=== PATIENT | female | born 1930 | race Caucasian/White ===

== ENCOUNTER 2016-07-31 09:53 | Outpatient (CLI) | payer MEDICARE ==
[~2016-07-31] VITALS: Ht 152.4 cm; Wt 47.7 kg
[~2016-07-31 09:53] MED LIST: AMLO5TAB2 PO; BIOT1CAP3 PO; CALC-22 PO; CARB1TAB PO; METO-277 PO; MIRT15TA PO; MULT-57 PO; OMEP-29 PO; POLY12PO2 PO; SERT25TA5 PO
[2016-07-31] MEDS ORDERED: ZOLEDRONIC ACID 5MG 100 ML IV ONE (10:15)
[2016-07-31 10:30] VITALS: BP 149/72; PULSE 83; RESP 16; TEMP 97.4; O2SAT 96
[2016-07-31 10:33] VITALS: Ht 152.4 cm; Wt 47.7 kg
[2016-07-31] MEDS ORDERED: NS 500 ML IV PRN (11:15)
== END 2016-07-31 11:21 | disposition home or self-care (01) ==
LOC: INF.THER 09:53
PROVIDERS: ATTEND Family Medicine
DX: M85.80 Other specified disorders of bone density and structure, unspecified site (principal); M81.0 Age-related osteoporosis without current pathological fracture
CPT/HCPCS: 96365; J3489

== ENCOUNTER → 2016-08-08 | Outpatient (CLI) | payer MEDICARE ==
[2016-08-08 17:23] LABS: BASOPHILS % (AUTO) 0.4 % (0-2); EOSINOPHILS # (AUTO) 0.3 T/MM3 (0-0.5); HCT - HEMATOCRIT 38.5 % (36-46); HGB - HEMOGLOBIN 11.9 GM/DL (12-16); IMMATURE GRANULOCYTE # (AUTO) 0.01 T/MM3 (0.00-0.03); IMMATURE GRANULOCYTE % (AUTO) 0.1 % (0.0-0.5); LYMPHOCYTES # (AUTO) 1.1 T/MM3 (1-4.8); LYMPHOCYTES % (AUTO) 16.3 % (23-45); MEAN CORPUSCULAR HGB 30.4 UUG (26-34); MEAN CORPUSCULAR HGB CONC(MCHC 30.9 GM/DL (31-37); MEAN CORPUSCULAR VOLUME 98.2 UM3 (80-100); MEAN PLATELET VOLUME 8.9 UM3 (9.4-12.4); MONOCYTES # (AUTO) 0.5 T/MM3 (0-0.8); MONOCYTES % (AUTO) 7.9 % (0-9.0); NEUTROPHILS #(AUTO)-ABSOLUTE 4.8 T/MM3 (1.8-7.7); NEUTROPHILS % (AUTO) 71.3 % (33-66); RED BLOOD COUNT 3.92 M/MM3 (4.00-5.20); WBC - WHITE BLOOD COUNT 6.7 T/MM3 (4.5-11.0)
[2016-08-08 17:33] LABS: ALBUMIN 4.6 G/DL (3.5-5.0); ALBUMIN/GLOBULIN RATIO 1.3 RATIO (1.1-2.2); ALKALINE PHOSPHATASE 134 U/L (38-126); ALT (SGPT) 19 U/L (9-52); ANION GAP 15 MEQ/L (5-15); AST (SGOT) 34 U/L (14-36); BUN/CREATININE RATIO 20 RATIO (6-26); CALCIUM 9.3 MG/DL (8.4-10.2); CHLORIDE 107 MEQ/L (98-107); CO2 - CARBON DIOXIDE 24 MEQ/L (22-30); CREATININE 1.8 MG/DL (0.7-1.2); GLOMERULAR FILTRATION RATE 27; GLUCOSE 106 MG/DL (65-110); POTASSIUM 5.3 MEQ/L (3.6-5); SODIUM 146 MEQ/L (134-144); TOTAL PROTEIN 8.2 G/DL (6.3-8.2)
== END ==
LOC: LAB 16:59
PROVIDERS: ATTEND Family Medicine
DX: R19.7 Diarrhea, unspecified (principal)
CPT/HCPCS: 36415; 80053; 82272; 85025; 87507

== ENCOUNTER 2016-08-09 11:58 | Outpatient (CLI) | payer MEDICARE ==
[~2016-08-09] VITALS: Ht 152.4 cm; Wt 47.7 kg
[2016-08-09] MEDS: NORMAL SALINE 500 ML IV ONE (12:32)
[2016-08-09 12:37] VITALS: Ht 152.4 cm; Wt 47.7 kg
[2016-08-09 13:19] VITALS: BP 141/72; PULSE 74; RESP 16; TEMP 96.8; O2SAT 97
[2016-08-09 15:30] LABS: ANION GAP 14 MEQ/L (5-15); BUN/CREATININE RATIO 21 RATIO (6-26); CALCIUM 8.7 MG/DL (8.4-10.2); CHLORIDE 109 MEQ/L (98-107); CO2 - CARBON DIOXIDE 21 MEQ/L (22-30); CREATININE 1.5 MG/DL (0.7-1.2); GLOMERULAR FILTRATION RATE 33; GLUCOSE 122 MG/DL (65-110); POTASSIUM 4.7 MEQ/L (3.6-5); SODIUM 144 MEQ/L (134-144)
== END 2016-08-09 15:55 | disposition home or self-care (01) ==
LOC: INF.THER 11:58
PROVIDERS: ATTEND Family Medicine
DX: E86.0 Dehydration (principal)
CPT/HCPCS: 36415; 80048; 96360; 96361

== ENCOUNTER → 2016-08-25 | Outpatient (CLI) | payer MEDICARE ==
--- NOTE | 2016-08-25 09:38 | DI ---
Indication: ITS.REASON: R10.32 LLQ ABD PAIN, recent fall with left lower abdominal pain PROCEDURE: CT ABD/PELVIS W/O CONTRAST: Encounter: Initial Comparison: None Technique: Axial CT images were performed through the abdomen and pelvis without intravenous contrast. Coronal and sagittal two-dimensional reformats. Automated Exposure Control and Iterative Reconstruction dose reducing techniques were utilized. Findings: The lung bases are clear. The unenhanced contours of the liver are unremarkable. Gallbladder is surgically absent. The spleen, pancreas and adrenal glands are within normal limits. Kidneys appear normal. Scattered atherosclerotic plaque in the abdominal aorta and its major branches. No abdominal or pelvic lymphadenopathy. Bladder is normal. Uterus is surgically absent. No free fluid or evidence of a bowel obstruction. Sigmoid diverticulosis without evidence of acute diverticulitis. No evidence of free fluid, free air or hemorrhage. There is subcutaneous edema in the soft tissues of the left thigh and hip region. Bone windows show previously treated T12 compression fracture. No acute fracture identified. Degenerative change with facet disease in the mid to lower lumbar spine. Impression: No acute disease process seen in the abdomen or pelvis. Soft tissue edema in the left thigh and hip region probably representing contusion. .
--- NOTE | 2016-08-25 13:01 | DI ---
Indication: ITS.REASON: M79.632 PAIN IN LEFT FOREARM recent fall with left elbow pain PROCEDURE: ELBOW LEFT 3 VIEW: Encounter: Initial Comparison: None Findings: There is no acute fracture, dislocation or malalignment identified. Impression: No acute osseous abnormality. .
--- NOTE | 2016-08-25 13:01 | DI ---
Indication: ITS.REASON: M79.632 PAIN IN LEFT FOREARM fall with left forearm pain PROCEDURE: RADIUS/ULNA LEFT 2 VIEW: Encounter: Initial Comparison: None Findings: There is no acute fracture, dislocation or malalignment identified. Impression: No acute osseous abnormality. .
== END ==
LOC: IMA 07:51
PROVIDERS: ATTEND Family Medicine
DX: M79.632 Pain in left forearm (principal); R10.32 Left lower quadrant pain; W19.XXXA Unspecified fall, initial encounter; Y93.9 Activity, unspecified; Y92.9 Unspecified place or not applicable; Y99.9 Unspecified external cause status

== ENCOUNTER 2017-03-13 11:51 | Inpatient (IN) ==
[2017-03-13] MEDS ORDERED: FUROSEMIDE 20 MG/2 ML INJECTION IVP ONE (12:13)
--- NOTE | 2017-03-13 12:17 | Emergency Department Report ---
SOB HPI - General Chief Complaint: Shortness of Breath/Dyspnea <Inga River Margarito 03/13/17 12 :19> Stated Complaint: dyspnea <Inga River Margarito 03/13/17 12:19> Time Seen by Provider: 03/13/17 11:54 <Inga River Margarito 03/13/17 12:19> Source: patient <Inga River 03/13/17 12:19> Mode of arrival: wheelchair <Inga River Margarito 03/13/17 12:19> Limitations: no limitations <Inga River 03/13/17 12:19> - History of Present Illness Pt presents with a C/O SOA for the last several days. She does have a history of CHF. Reports dry cough and GERD, denies chest pain, N/V/D, or fever <FelishahiroInga Matias Margarito 03/13/17 12:19> MD Complaint: shortness of breath <AletaInga Matias Margarito 03/13/17 12:19> Onset (ago): day(s) <Inga River Margarito 03/13/17 12:19> Severity: mild <aHyleemarielInag Matias Margarito 03/13/17 12:19> Consistency/Duration: constant <HayleemarielInga Matias Margarito 03/13/17 12:19> Relieving factors: upright position <HayleeamrielInga Matias Margarito 03/13/17 12:19> Exacerbating factors: lying flat, exertion <AletaIngagillian Pimentel 03/13/17 12: 19> Known history of: congestive heart failure <HayleemarielInga Matias Margarito 03/13/17 12: 19> Associated symptoms: cough <AletaInga Matias Margarito 03/13/17 12:19> Treatment prior to arrival: none <FelishahiroIngagillian Pimentel 03/13/17 12:19> - Related Data Home Medications Medication Instructions Recorded Confirmed Mirtazapine [Remeron] 15 mg PO HS #0 04/05/11 03/13/17 Omeprazole 20 mg PO DAILY #0 12/23/12 03/13/17 Sertraline HCl 25 mg PO HS #30 08/17/15 03/13/17 Acetaminophen [Acetaminophen ER] 650 mg PO Q6H PRN 03/13/17 03/13/17 Aspirin Chewable [ASA] 81 mg PO Q48H 03/13/17 03/13/17 Biotin 300 mcg PO Q48H 03/13/17 03/13/17 Carbidopa/Levodopa 1 tab PO TID 03/13/17 03/13/17 [Carbidopa-Levodopa 25-250 Tab] Cholecalciferol [Vit. D-3] 1,000 unit PO DAILY 03/13/17 03/13/17 Docusate Sodium [Colace] 100 mg PO BID 03/13/17 03/13/17 Melatonin 5 mg PO HS PRN 03/13/17 03/13/17 Metoprolol Succinate 12.5 mg PO DAILY 03/13/17 03/13/17 Multivitamin [One Daily 1 each PO DAILY 03/13/17 03/13/17 Multivitamin] Oxybutynin Chloride 5 mg PO HS PRN 03/13/17 03/13/17 Propylene Glycol [Lubricant Eye 1 drop OP DAILY 03/13/17 03/13/17 Drops] <Inga River 03/13/17 12:19> Allergies Allergy/AdvReac Type Severity Reaction Status Date / Time clarithromycin AdvReac Mild STOMACH Verified 08/09/16 13:19 PAIN <Inga River 03/13/17 12:19> Review of Systems All systems: reviewed and negative except as stated <Inga River 12:19> Constitutional: Denies: fever, weakness <Inga River 03/13/17 12:19> Respiratory: Reports: cough, dyspnea. Denies: wheezes <Inga River 03/13/17 12:19> Gastrointestinal: Denies: nausea, vomiting, diarrhea <Inga River 12:19> Musculoskeletal: Reports: arthralgia <Inga River 03/13/17 12:19> [facility] Patient Stated Medical History Parkinson's Disease Yes Hypertension Yes Valvular Heart Disease Yes: aortic valve stenosis Other Cardiology Yes: murmur Gastroesophageal Reflux Yes Disease Other Yes: chronic kidney disease stage 3 Other Musculoskeletal Yes: arthritis Other Infectious Yes: measels as a child Depression Yes <Inga River 03/13/17 14:19> Physical Exam - Limitations Limitations: no limitations <Inga River 03/13/17 12:19> - General General appearance: alert, in no apparent distress <Inga River 03/13 12:19> - Normal Exams: Head:: Normocephalic without trauma <AletaInga Pimentel 03/13/17 12:19> Eyes:: Pupils are PERRLA w/ EOMI <Inga River 03/13/17 12:19> Neck:: Full range of motion, without adenopathy <Inga River 12:19> Cardiovascular:: Regular rate and rhythm, without murmur or gallop, Pulses 2+ all extremities <Inga River 03/13/17 12:19> Abdomen:: Bowel sounds positive, soft, non-tender, non-distended <Aleta Inga Pimentel 03/13/17 12:19> Musculoskeletal:: No tenderness, or deformity noted, good range of motion, all extremities <Inga River 03/13/17 12:19> Integumentary:: No rashes <Inga River 03/13/17 12:19> Neurological:: Patient is alert, and oriented, cranial nerves, motor/sensory/ cerebellar, exams w/o gross deficits, to observation <Inga River 12:19> Psychiatric:: Patient exhibits, appropriate attention, emotion and affect < Inga River 03/13/17 12:19> - Respiratory Respiratory exam: Present: crackles (telly bases) <Inga River 12:19> - Expanded Respiratory Exam Location: Left: decreased breath sounds, Right: decreased breath sounds, Upper: decreased breath sounds, Lower: decreased breath sounds <Inga River 03/13/17 12:19> Course Vital Signs Temperature 97.9 F 03/13/17 11:54 Pulse Rate 77 03/13/17 11:54 Respiratory Rate 24 03/13/17 11:54 Blood Pressure 180/79 H 03/13/17 11:54 Pulse Oximetry 98 03/13/17 11:54 Temperature 97.9 F 03/13/17 11:54 Pulse Rate 77 03/13/17 12:44 Respiratory Rate 24 03/13/17 11:54 Blood Pressure 175/83 H 03/13/17 12:44 Pulse Oximetry 91 03/13/17 12:44 <Inga River 03/13/17 14:19> Shortness of Breath/Dyspnea - [facility] Narrative Medical decision making narrative: Pt diuresing after Lasix given. Concerns for pneumonia after review of CXR, pt has a PORT score of 125. Results discussed with Dr Fonseca who will admit pt for further care. <Inga River 03/13/17 14:19> - Differential Diagnosis Likely: acute exacerbation of chronic obstructive airways disease, congestive heart failure, community acquired pneumonia, pulmonary embolism <Inga River 03/13/17 12:19> - Lab Data Attestation: I reviewed the patient's lab results. <Inga River 03/13 14:19> Result diagrams: 03/13/17 12:42 03/13/17 12:42 <Inga River 03/13/17 12:19> Lab Results 03/13/17 03/13/17 03/13/17 Range/Units 12:42 12:42 12:42 WBC 7.9 (4.5-11.0) T/MM3 RBC 3.53 L (4.00-5.20) M/MM3 Hgb 10.7 L (12-16) GM/DL Hct 34.4 L (36-46) % MCV 97.5 (80-100) UM3 MCH 30.3 (26-34) UUG MCHC 31.1 (31-37) GM/DL RDW Std Deviation 46.1 (36.9-50.2) FL Plt Count 230 (130-400) T/MM3 MPV 9.0 L (9.4-12.4) UM3 Immature Gran % (Auto) 0.1 (0.0-0.5) % Neut % (Auto) 63.0 (33-66) % Lymph % (Auto) 23.5 (23-45) % [place] % (Auto) 8.8 (0-9.0) % Eos % (Auto) 4.2 H (0-4) % Baso % (Auto) 0.4 (0-2) % Neut # (Auto) 5.0 (1.8-7.7) T/MM3 Lymph # (Auto) 1.9 (1-4.8) T/MM3 [place] # (Auto) 0.7 (0-0.8) T/MM3 Eos # (Auto) 0.3 (0-0.5) T/MM3 Baso # (Auto) 0.0 (0-0.2) T/MM3 Abs Immat Gran (auto) 0.01 (0.00-0.03) T/MM3 Turbidity < 20 (0-20) Sodium 141 (134-144) MEQ/L Potassium 4.7 (3.6-5) MEQ/L Chloride 107 (98-107) MEQ/L Carbon Dioxide 23 (22-30) MEQ/L Anion Gap 11 (5-15) MEQ/L BUN 33.0 H (7-17) MG/DL Creatinine 1.3 H (0.7-1.2) MG/DL GFR Calculation 39 BUN/Creatinine Ratio 25 (6-26) RATIO Glucose 88 (65-110) MG/DL Calculated Osmolality 277 (261-280) MOSM/KG Calcium 9.1 (8.4-10.2) MG/DL Total Bilirubin 0.50 (0.20-1.30) MG/DL Icterus Index < 2 (0-7) AST 29 (14-36) U/L ALT 23 (9-52) U/L Alkaline Phosphatase 135 H (38-126) U/L B-Natriuretic Peptide 7700 H (0-175) pg/mL Total Protein 7.6 (6.3-8.2) G/DL Albumin 4.2 (3.5-5.0) G/DL Globulin 3.4 (2.4-3.6) G/DL Albumin/Globulin Ratio 1.2 (1.1-2.2) RATIO Specimen Hemolysis 20 (0-25) <Inga River - 03/13/17 14:19> - Radiology Data Attestation: I reviewed the patient's radiology results. (per Dr [place]) < Inga River 03/13/17 14:19> - EKG Data EKG #1 EKG attestation: Yes: I reviewed and interpreted this EKG. < 14:11> EKG shows normal: sinus rhythm, intervals, ST-T waves <03/13/17 14:11> Rate: normal <03/13/17 14:11> [place]/QRS: left axis deviation, LBBB <03/13/17 14:11> Disposition Clinical Impression: Congestive heart failure Qualifiers: Congestive heart failure type: combined Congestive heart failure chronicity: acute on chronic Qualified Code(s): I50.43 - Acute on chronic combined systolic (congestive) and diastolic (congestive) heart failure Pneumonia Qualifiers: Pneumonia type: due to other aerobic Gram-negative bacteria Laterality: bilateral Lung location: lower lobe of lung Qualified Code(s): J15.6 - Pneumonia due to other Gram-negative bacteria <Inga River 03/13/17 14:19> [place]: [place] [facility] [place] <Inga River 03/13/17 14:19> Condition: Improved <Inga River 03/13/17 14:19> Instructions: <Inga River 03/13/17 12:19> Prescriptions: No Action Sertraline HCl 25 mg PO HS #30 Melatonin 5 mg PO HS PRN PRN Reason: Sleep Oxybutynin Chloride 5 mg PO HS PRN PRN Reason: Prn Orders Biotin 300 mcg PO Q48H Metoprolol Succinate 12.5 mg PO DAILY Docusate Sodium [Colace] 100 mg PO BID Cholecalciferol [Vit. D-3] 1,000 unit PO DAILY Carbidopa/Levodopa [Carbidopa-Levodopa 25-250 Tab] 1 tab PO TID Aspirin Chewable [ASA] 81 mg PO Q48H Mirtazapine [Remeron] 15 mg PO HS #0 Omeprazole 20 mg PO DAILY #0 Acetaminophen [Acetaminophen ER] 650 mg PO Q6H PRN PRN Reason: Pain Propylene Glycol [Lubricant Eye Drops] 1 drop OP DAILY Multivitamin [One Daily Multivitamin] 1 each PO DAILY <Inga River 03/13/17 12:19> Referrals: Ekaterina Rust MD [Primary Care Provider] - <Inga River 03/13/17 12:19> Forms: <Inga River 03/13/17 12:19> Time of Disposition: 14:19 <Inga River 03/13/17 14:19> - Seen By: midlevel <Inga River 03/13/17 14:19>
[2017-03-13] MEDS: SALINE FLUSH 10ml SYRINGE IVF PRN ×3 (12:42→21:36)
--- NOTE | 2017-03-13 13:25 | XRay Report ---
INDICATION: SOA hx CHF PROCEDURE: CHEST 2-VIEWS UPRIGHT (PA & LAT) Encounter: Initial COMPARISON: February 24, 2016 FINDINGS: Small bilateral pleural effusions with lower lobe airspace disease. Prominence of the pulmonary vascularity and interstitial markings. No pneumothorax. Heart size and mediastinal contours are stable. Prior cholecystectomy and vertebroplasty procedures. Impression: Mild congestive failure. Mild pneumonia or aspiration cannot be entirely excluded in the lung bases. .
--- OUTSIDE RECORDS SUMMARY | 2017-03-13 13:36 | External Medical Summary | Referral Summary ---
:1930 Author Organization [facility] [place] [id number] Care Team Providers Name Role Phone GauriGaby Primary Care Physician Encounter VC Date(s): 01/18/15 - 01/18/15 [facility] [place] [phone] Discharge Diagnosis: DDD (degenerative disc disease), lumbar Discharge Diagnosis: Benign hypertension Discharge Diagnosis: Thoracic compression fracture Discharge Disposition: 01-Home or Self Care Attending Physician: Hayden Siddiqi MD Admitting Physician: Hayden Siddiqi MD Vital Signs Most recent to oldest [Reference Range]: 1 Temperature Tympanic [36.6-38.1 degC] 35.8 degC *LOW* (01/18/15 10:41 AM) Peripheral Pulse Rate [60-100 bpm] 84 bpm (01/18/15 10:41 AM) Blood Pressure [90-140/60-90 mmHg] 110/64 mmHg (01/18/15 10:41 AM) Problem List Condition Effective Dates Status Health Status Informant Benign hypertension(Confirmed) Active Chronic renal failure(Confirmed) Active B12 deficiency(Confirmed) Active Thoracic compression Active fracture(Confirmed) DDD (degenerative disc disease), Active lumbar(Confirmed) Depression(Confirmed) Active Gastroenteritis - hosp [place](Confirmed) 04/2011 Active GERD (gastroesophageal reflux Active disease)(Confirmed) Urinary frequency(Confirmed) Active Lumbago(Confirmed) Active Lumbar spondylosis(Confirmed) Active OA (osteoarthritis)(Confirmed) Active Parkinson's disease - Dr. Andrew Mata(Confirmed) Vitamin D deficiency(Confirmed) Active Allergies, Adverse Reactions, Alerts Substance Reaction Severity Status Biaxin Active clarithromycin rash Active Medications amLODIPine 5 mg oral tablet 5 mg 1 tabs, Oral, Daily, # 30 tabs, 6 Refill(s), Pharmacy: [facility], 1 tabs Oral Daily,x30 days Start Date: 02/15/15 Stop Date: 09/13/15 Status: OrderedCaltrate 600 + D oral tablet 1 tabs, Oral, Daily Start Date: 07/24/14 Status: Orderedcarbidopa-levodopa 50 mg-200 mg oral tablet, extended release 1 tabs, Oral, TID Start Date: 07/24/14 Status: Orderedcephalexin See Instructions, 250 mg Oral- Take 4 tabs prior to dental procedure due to knee repalacement, 0 Refill(s) Start Date: 08/28/14 Status: OrderedCommode (DME) DME Item Bed side commode DX: Compression fracture T11 fall 2 weeks ago 786.1 / 042.43 Fax to [facility] [phone], See Instructions, # 1 Each, 0 Refill(s), Supply Start Date: 12/15/14 Status: Ordereddocusate sodium 50 mg oral capsule 2 caps, Oral, Bedtime (once a day), PRN Start Date: 07/24/14 Status: Orderedmetoprolol succinate 25 mg oral tablet, extended release 25 mg 1 tabs, Oral, Daily, # 30 tabs, 5 Refill(s), Pharmacy: [facility] Start Date: 11/20/14 Status: OrderedMiacalcin Nasal 200 intl units/inh nasal spray 1 sprays, Nasal, Daily, alternate nostrils, # 1 Each, 3 Refill(s), Pharmacy: [facility],1 sprays Nasal Daily,x30 days,Instr:alternate nostrils Start Date: 12/14/14 Stop Date: 04/13/15 Status: Orderedmirtazapine 15 mg oral tablet 1 tabs, Oral, Bedtime (once a day) Start Date: 07/24/14 Status: Orderedomeprazole 20 mg oral delayed release capsule 1 caps, Oral, Daily, before a meal Start Date: 07/24/14 Status: Orderedsertraline 25 mg oral tablet 25 mg 1 tabs, Oral, Daily, # 30 tabs, 6 Refill(s), Pharmacy: [facility], 1 tabs Oral Daily,x30 days Start Date: 10/28/14 Stop Date: 05/26/15 Status: OrderedVitamin D3 2000 intl units oral tablet 1 tabs, Oral, Daily Start Date: 07/24/14 Status: Ordered Results No data available for this section Immunizations Vaccine Date Refusal Reason influenza virus vaccine, inactivated 02/15/15 Procedures Procedure Date Related Diagnosis Body Site Vertebroplasty1 01/05/15 Admission to hospital 04/2011 Knee replacement - L x 3; Dr. Suárez 1999 Cholecystotomy Hysterectomy Surgery - gall bladder2 1auto-populated from documented surgical [id number] bladder -- Dr. Strickland in [facility] -- Dr. Godfrey left knee-- Dr. Soliz Social History Social History Type Response Smoking Status Never smoker Assessment and Plan Extracted from: Title: Office Visit Note Author: Hayden Siddiqi MD Date: 01/18/15 Assessment/Plan Benign hypertension DDD (degenerative disc disease), lumbar Thoracic compression fracture Plan: I filled out your forms for home health. I have made a copy for the chart. I think you are benefiting from care at this time. I wants to follow- up in one month for med checkup. Continue all current medications. Once your stools returned to normal caliber then if you develop constipation then his Crystal lax once a day instead of twice a day.
--- OUTSIDE RECORDS SUMMARY | 2017-03-13 13:36 | External Medical Summary | Referral Summary ---
:1930 Author Organization [facility] [place] [address] Care Team Providers Name Role Phone Gauri Gaby N Primary Care Physician Encounter VC Date(s): 12/14/14 - 12/14/14 [facility] [place] [phone] [place] Discharge Diagnosis: Acute low back pain due to trauma Discharge Disposition: 01-Home or Self Care Attending Physician: Hayden Siddiqi MD Admitting Physician: Hayden Siddiqi MD Vital Signs Most recent to oldest [Reference Range]: 1 Peripheral Pulse Rate [60-100 bpm] 92 bpm (12/14/14 1:00 PM) Blood Pressure [90-140/60-90 mmHg] 108/66 mmHg (12/14/14 1:00 PM) Problem List Condition Effective Dates Status Health [...] Daily, # 30 tabs, 6 Refill(s), Pharmacy: [facility], 1 tabs Oral Daily,x30 days Start Date: [...] Compression fracture T11 fall 2 weeks ago 805.2 / 733.13 Fax to [facility] [phone], See Instructions, # 1 Each, 0 Refill(s), Supply Start Date: 12/15/14 Status: Ordereddocusate sodium 50 mg oral capsule 2 caps, Oral, Bedtime (once a day), PRN Start Date: 07/24/14 Status: Orderedmetoprolol succinate 25 mg oral tablet, extended release 25 mg 1 tabs, Oral, Daily, # 30 tabs, 5 Refill(s), Pharmacy: [facility] Start Date: 11/20/14 Status: OrderedMiacalcin Nasal 200 intl units/inh nasal spray 1 sprays, Nasal, Daily, alternate nostrils, # 1 Each, 3 Refill(s), Pharmacy: [facility],1 sprays Nasal Daily,x30 days,Instr:alternate nostrils [...] Daily, # 30 tabs, 6 Refill(s), Pharmacy: [facility], 1 tabs Oral Daily,x30 days [...] - gall bladder2 1auto-populated from documented surgical [id number] bladder -- Dr. Strickland in [facility] -- Dr. Godfrey left knee-- Dr. Soliz Social History Social History Type Response Smoking Status Never smoker Assessment and Plan Extracted from: Title: Office Visit Note Author: Hayden Siddiqi MD Date: 12/14/14 Assessment/Plan Acute low back pain due to trauma Closed wedge compression fracture of T11 vertebra Plan: I'm going to place U on the callus and spray. Or setting you up to see a neurosurgeon regarding possible kyphoplasty. He live alone. Because of that I am not placing you on narcotic medication. Use Tylenol for pain. Orders: calcitonin, 1 sprays, Nasal, Daily, alternate nostrils, # 1 Each, 3 Refill(s), Pharmacy: [facility], 1 sprays Nasal Daily,x30 days,Instr :alternate nostrils predniSONE, See Instructions, Take 6 tabs on day one and then decrease by one tablet daily until gone., # 21 tabs, 0 Refill(s), Pharmacy: [facility], Take 6 tabs on day one and then decrease by one tablet daily until gone.
--- OUTSIDE RECORDS SUMMARY | 2017-03-13 13:36 | External Medical Summary | Referral Summary ---
:1930 Author Organization [facility], Internal Medicine Address [address] [place] [address] [place] [address] Care Team Providers Name Role Phone Gaby Astorga Michelle Primary Care Physician Encounter VC Date(s): 09/02/14 - 09/02/14 [facility], Internal Medicine [address] [place] [address] [place] [phone] [place] Discharge Diagnosis: OTHER B-COMPLEX DEFICIENCIES Discharge Disposition: 01-Home or Self Care Attending Physician: Hayden Siddiqi MD Admitting Physician: Hayden Siddiqi MD Vital Signs Most recent to oldest [Reference Range]: 1 Peripheral Pulse Rate [60-100 bpm] 82 bpm (09/02/14 10:21 AM) Blood Pressure [90-140/60-90 mmHg] 128/68 mmHg (09/02/14 10:21 AM) Problem List Condition Effective Dates Status Health Status Informant Benign hypertension(Confirmed) Active Chronic renal failure(Confirmed) Active B12 deficiency(Confirmed) Active Thoracic compression Active fracture(Confirmed) DDD (degenerative disc disease), Active lumbar(Confirmed) Depression(Confirmed) Active Gastroenteritis - hosp [facility](Confirmed) 04/2011 Active GERD (gastroesophageal reflux Active disease)(Confirmed) Urinary frequency(Confirmed) Active Lumbago(Confirmed) Active Lumbar spondylosis(Confirmed) Active OA (osteoarthritis)(Confirmed) Active Parkinson's disease - Dr. Andrew Mata(Confirmed) Vitamin D deficiency(Confirmed) Active Allergies, Adverse Reactions, Alerts Substance Reaction Severity Status Biaxin Active clarithromycin rash Active Medications amLODIPine 5 mg oral tablet 5 mg 1 tabs, Oral, Daily, # 30 tabs, 6 Refill(s), Pharmacy: [facility], 1 tabs Oral Daily,x30 days Start Date: [...] ago 805.2 / 733.[address] [facility] [phone], See Instructions, # 1 Each, 0 Refill(s), Supply Start Date: 12/15/14 Status: Ordereddocusate sodium 50 mg oral capsule 2 caps, Oral, Bedtime (once a day), PRN Start Date: 07/24/14 Status: Orderedmetoprolol succinate 25 mg oral tablet, extended release 25 mg 1 tabs, Oral, Daily, # 30 tabs, 5 Refill(s), Pharmacy: [facility] Start Date: 11/20/14 Status: OrderedMiacalcin Nasal 200 intl units/inh nasal spray 1 sprays, Nasal, Daily, alternate nostrils, # 1 Each, 3 Refill(s), Pharmacy: [facility],1 sprays Nasal Daily,x30 days,Instr:alternate nostrils [...] Daily, # 30 tabs, 6 Refill(s), Pharmacy: [facility], 1 tabs Oral Daily,x30 days [...] - gall bladder2 1auto-populated from documented surgical [id number] bladder -- Dr. Strickland in [facility] -- Dr. Godfrey left knee-- Dr. Soliz Social History Social History Type Response Smoking Status Never smoker Assessment and Plan No data available for this section
--- OUTSIDE RECORDS SUMMARY | 2017-03-13 13:36 | External Medical Summary | Referral Summary ---
:1930 Author Organization [facility] [place] [address] Care Team Providers Name Role Phone Hayden Siddiqi Primary Care Physician Encounter VC Date(s): 02/15/15 - 02/15/15 [facility] [place] [phone] [place] Discharge Diagnosis: Benign hypertension Discharge Disposition: 01-Home or Self Care Attending Physician: Hayden Siddiqi MD Admitting Physician: Hayden Siddiqi MD Vital Signs Most recent to oldest [Reference Range]: 1 Temperature Tympanic [36.6-38.1 degC] 36.0 degC *LOW* (02/15/15 2:02 PM) Peripheral Pulse Rate [60-100 bpm] 76 bpm (02/15/15 2:02 PM) Respiratory Rate [14-20 br/min] 26 br/min *HI* (02/15/15 2:02 PM) Blood Pressure [90-140/60-90 mmHg] 182/96 mmHg *HI* (02/15/15 2:02 PM) Problem List Condition Effective Dates Status [...] Daily, # 30 tabs, 6 Refill(s), Pharmacy: [facility], 1 tabs Oral Daily,x30 days [...] weeks ago 805.2 / 733.13 [facility] [phone], See Instructions, # 1 Each, 0 Refill(s), Supply Start Date: 12/15/14 Status: Ordereddocusate sodium 50 mg oral capsule 2 caps, Oral, Bedtime (once a day), PRN Start Date: 07/24/14 Status: Orderedmetoprolol succinate 25 mg oral tablet, extended release 25 mg 1 tabs, Oral, Daily, # 30 tabs, 5 Refill(s), Pharmacy: [facility] Start Date: 11/20/14 Status: OrderedMiacalcin Nasal 200 intl units/inh nasal spray 1 sprays, Nasal, Daily, alternate nostrils, # 1 Each, 3 Refill(s), Pharmacy: [facility],1 sprays Nasal Daily,x30 days,Instr:alternate nostrils [...] Daily, # 30 tabs, 6 Refill(s), Pharmacy: [facility], 1 tabs Oral Daily,x30 days [...] - gall bladder2 1auto-populated from documented surgical [id number] bladder -- Dr. Strickland in [facility] -- Dr. Godfrey left knee-- Dr. Soliz Social History Social History Type Response Smoking Status Never smoker Assessment and Plan Extracted from: Title: Office Visit Note Author: Hayden Siddiqi MD Date: 02/15/15 Assessment/Plan Benign hypertension Plan: I'm adding amlodipine 5 mg a day and I want to see you back in 2 weeks. Continue metoprolol. If you're having trouble with dizziness call me. I want you to track how many headaches you have and if they're getting better. Orders: amLODIPine, 5 mg 1 tabs, Oral, Daily, # 30 tabs, 6 Refill(s), Pharmacy: [facility], 1 tabs Oral Daily,x30 days
--- OUTSIDE RECORDS SUMMARY | 2017-03-13 13:39 | External Medical Summary | Referral Summary ---
:1930 Author Organization [facility] Address [address] [place] [address] [place] [address] Care Team Providers Name Role Phone Gaby Astorga Michelle Primary Care Physician Encounter VC Date(s): 09/30/14 - 09/30/14 [facility] [address] [place] [address] [place] [phone] [place] Discharge Diagnosis: OTHER B-COMPLEX DEFICIENCIES Discharge Disposition: 01-Home or Self Care Attending Physician: Hayden Siddiqi MD Admitting Physician: Hayden Siddiqi MD Vital Signs Most recent to oldest [Reference Range]: 1 Peripheral Pulse Rate [60-100 bpm] 76 bpm (09/30/14 9:56 AM) Blood Pressure [90-140/60-90 mmHg] 144/82 mmHg *HI* (09/30/14 9:56 AM) Problem List Condition Effective Dates Status [...] Daily, # 30 tabs, 6 Refill(s), Pharmacy: [facility], 1 tabs Oral Daily,x30 days Start Date: [...] weeks ago 805.2 / 733.13 Fax to [facility] [phone], See Instructions, # 1 Each, 0 Refill(s), Supply Start Date: 12/15/14 Status: Ordereddocusate sodium 50 mg oral capsule 2 caps, Oral, Bedtime (once a day), PRN Start Date: 07/24/14 Status: Orderedmetoprolol succinate 25 mg oral tablet, extended release 25 mg 1 tabs, Oral, Daily, # 30 tabs, 5 Refill(s), Pharmacy: [facility] Start Date: 11/20/14 Status: OrderedMiacalcin Nasal 200 intl units/inh nasal spray 1 sprays, Nasal, Daily, alternate nostrils, # 1 Each, 3 Refill(s), Pharmacy: [email or web address],1 sprays Nasal Daily,x30 days,Instr:alternate nostrils [...] Daily, # 30 tabs, 6 Refill(s), Pharmacy: [facility], 1 tabs Oral Daily,x30 days [...] - gall bladder2 1auto-populated from documented surgical [id number] bladder -- Dr. Strickland in [facility] -- Dr. Godfrey left knee-- Dr. Soliz Social History Social History Type Response Smoking Status Never smoker Assessment and Plan No data available for this section
--- OUTSIDE RECORDS SUMMARY | 2017-03-13 13:43 | External Medical Summary | Referral Summary ---
:1930 [facility] Address [address] [place] [address] [place] [address] Care Team Providers Name Role Phone Gaby Astorga Michelle Primary Care Physician Encounter VC Date(s): 11/19/14 - 11/19/14 [facility] [place] [phone] [place] Discharge Disposition: 01-Home or Self Care Attending Physician: Hayden Siddiqi MD Admitting Physician: Hayden Siddiqi MD Vital Signs Most recent to oldest [Reference Range]: 1 Temperature Tympanic [36.6-38.1 degC] 36 degC *LOW* (11/19/14 9:29 AM) Blood Pressure [90-140/60-90 mmHg] 128/76 mmHg (11/19/14 9:29 AM) Problem List Condition Effective Dates Status [...] Daily, # 30 tabs, 6 Refill(s), Pharmacy: [facility], 1 tabs Oral Daily,x30 days Start Date: [...] weeks ago 805.2 / 733.13 Fax to [facility] [phone], See Instructions, # 1 Each, 0 Refill(s), Supply Start Date: 12/15/14 Status: Ordereddocusate sodium 50 mg oral capsule 2 caps, Oral, Bedtime (once a day), PRN Start Date: 07/24/14 Status: Orderedmetoprolol succinate 25 mg oral tablet, extended release 25 mg 1 tabs, Oral, Daily, # 30 tabs, 5 Refill(s), [facility] Start Date: 11/20/14 Status: OrderedMiacalcin Nasal 200 intl units/inh nasal spray 1 sprays, Nasal, Daily, alternate nostrils, # 1 Each, 3 Refill(s), Pharmacy: [facility],1 sprays Nasal Daily,x30 days,Instr:alternate nostrils [...] Daily, # 30 tabs, 6 Refill(s), Pharmacy: [facility], 1 tabs Oral Daily,x30 days [...] - gall bladder2 1auto-populated from documented surgical [id number] bladder -- Dr. Strickland in [facility] -- Dr. Godfrey left knee-- Dr. Soliz Social History Social History Type Response Smoking Status Never smoker Assessment and Plan Extracted from: Title: Office Visit Note Author: Hayden Siddiqi MD Date: 11/19/14 Assessment/Plan Benign hypertension Chronic renal failure Depression Parkinson's disease - Dr. Mata Plan: Let's stop the losartan. I want to recheck lab in one month. Follow -up in one month. If you're still having episodes of dizziness with standing the me know. We'll recheck depression at t hat time. Continue all other current medications. Use Lamisil cream for toenail fungus twice a day.
--- OUTSIDE RECORDS SUMMARY | 2017-03-13 13:43 | External Medical Summary | Referral Summary ---
:1930 Author Organization [facility] [place] [address] Care Team Providers Name Role Phone Gauri Gaby Michelle Primary Care Physician Encounter VC Date(s): 10/28/14 - 10/28/14 [facility] [place] [phone] [place] Discharge Disposition: 01-Home or Self Care Attending Physician: Hayden Siddiqi MD Admitting Physician: Hayden Siddiqi MD Vital Signs Most recent to oldest [Reference Range]: 1 Temperature Tympanic [36.6-38.1 degC] 36.0 degC *LOW* (10/28/14 9:04 AM) Peripheral Pulse Rate [60-100 bpm] 76 bpm (10/28/14 9:04 AM) Blood Pressure [90-140/60-90 mmHg] 128/82 mmHg (10/28/14 9:04 AM) Problem List Condition Effective Dates Status Health Status Informant Benign hypertension(Confirmed) Active Chronic renal failure(Confirmed) Active B12 deficiency(Confirmed) Active Thoracic compression Active fracture(Confirmed) DDD (degenerative disc disease), Active lumbar(Confirmed) Depression(Confirmed) Active Gastroenteritis - [facility](Confirmed) 04/2011 Active GERD (gastroesophageal reflux Active disease)(Confirmed) Urinary frequency(Confirmed) Active Lumbago(Confirmed) Active Lumbar spondylosis(Confirmed) Active OA (osteoarthritis)(Confirmed) Active Parkinson's disease - Dr. Andrew Mata(Confirmed) Vitamin D deficiency(Confirmed) Active Allergies, Adverse Reactions, Alerts Substance Reaction Severity Status Biaxin Active clarithromycin rash Active Medications amLODIPine 5 mg oral tablet 5 mg 1 tabs, Oral, Daily, # 30 tabs, 6 Refill(s), Pharmacy: [facility], 1 tabs Oral Daily,x30 days Start Date: [...] T11 fall 2 weeks ago 805.2 / 881.30 Fax to [facility] [phone], See Instructions, # 1 Each, 0 Refill(s), Supply Start Date: 12/15/14 Status: Ordereddocusate sodium 50 mg oral capsule 2 caps, Oral, Bedtime (once a day), PRN Start Date: 07/24/14 Status: Orderedmetoprolol succinate 25 mg oral tablet, extended release 25 mg 1 tabs, Oral, Daily, # 30 tabs, 5 Refill(s), Pharmacy: [facility] Start Date: 11/20/14 Status: OrderedMiacalcin Nasal 200 intl units/inh nasal spray 1 sprays, Nasal, Daily, alternate nostrils, # 1 Each, 3 Refill(s), Pharmacy: [facility],1 sprays Nasal Daily,x30 days,Instr:alternate nostrils [...] Daily, # 30 tabs, 6 Refill(s), Pharmacy: [facility], 1 tabs Oral Daily,x30 days Start Date: 10/28/14 Stop Date: 05/26/15 Status: OrderedVitamin D3 2000 intl units oral tablet 1 tabs, Oral, Daily Start Date: 07/24/14 Status: Ordered Results Hematology Most recent to oldest [Reference Range]: 1 WBC [4.8-10.8 10*3/uL] 8.5 10*3/uL (10/28/14 10:13 AM) RBC [4.00-5.20 10*6/uL] 4.22 10*6/uL (10/28/14 10:13 AM) Hgb [12.0-16.0 gm/dL] 13.2 gm/dL (10/28/14 10:13 AM) Hct [37.0-47.0 %] 41.3 % (10/28/14 10:13 AM) MCV [82.0-99.0 fL] 97.9 fL (10/28/14 10:13 AM) MCH [27.0-32.0 pg] 31.3 pg (10/28/14 10:13 AM) MCHC [32.0-36.0 gm/dL] 32.0 gm/dL (10/28/14 10:13 AM) RDW [11.5-14.5 %] 12.9 % (10/28/14 10:13 AM) Platelet [150-400 10*3/uL] 229 10*3/uL (10/28/14 10:13 AM) MPV [8.8-14.8 fL] 9.7 fL (10/28/14 10:13 AM) Immature Granulocytes [0.0-1.0 %] 0.1 % (10/28/14 10:13 AM) Neutrophils [51-75 %] 60 % (10/28/14 10:13 AM) Lymphocytes [20-46 %] 23 % (10/28/14 10:13 AM) Monocytes [4-11 %] 9 % (10/28/14 10:13 AM) Eosinophils [0-4 %] 8 % *HI* (10/28/14 10:13 AM) Basophils [0-2 %] 0 % (10/28/14 10:13 AM) Neutro Absolute [1.90-7.00 10*3] 5.09 10*3 (10/28/14 10:13 AM) Lymph Absolute [0.80-3.30 10*3] 1.97 10*3 (10/28/14 10:13 AM) Scott Absolute [0.30-1.00 10*3] 0.74 10*3 (10/28/14 10:13 AM) Eos Absolute [0.00-0.50 10*3] 0.69 10*3 *HI* (10/28/14 10:13 AM) Baso Absolute [0.00-0.20 10*3] 0.03 10*3 (10/28/14 10:13 AM) Chemistry Most recent to oldest [Reference Range]: 1 Sodium Lvl [135-144 mEq/L] 141 mEq/L (10/28/14 10:13 AM) Potassium Lvl [3.5-5.2 mEq/L] 4.7 mEq/L (10/28/14 10:13 AM) Chloride [99-111 mEq/L] 106 mEq/L (10/28/14 10:13 AM) CO2 [22-31 mEq/L] 25 mEq/L (10/28/14 10:13 AM) AGAP [3-20] 10 (10/28/14 10:13 AM) BUN [10-20 mg/dL] 37 mg/dL *HI* (10/28/14 10:13 AM) Glucose Lvl [70-99 mg/dL] 111 mg/dL *HI* (10/28/14 10:13 AM) Creatinine Lvl [0.57-1.11 mg/dL] 1.76 mg/dL *HI* (10/28/14 10:13 AM) eGFR [>60 mL/min] 28 mL/min 1 *ABN* (10/28/14 10:13 AM) Calcium Lvl [8.9-10.5 mg/dL] 10.1 mg/dL (10/28/14 10:13 AM) Albumin Lvl [3.4-4.8 gm/dL] 4.4 gm/dL (10/28/14 10:13 AM) Total Protein [6.2-8.1 gm/dL] 7.9 gm/dL (10/28/14 10:13 AM) Globulin [1.8-4.0 gm/dL] 3.5 gm/dL (10/28/14 10:13 AM) ALT [0-55 U/L] 11 U/L (10/28/14 10:13 AM) AST [5-34 U/L] 27 U/L (10/28/14 10:13 AM) Alk Phos [40-150 U/L] 164 U/L *HI* (10/28/14 10:13 AM) Bili Total [0.2-1.2 mg/dL] 0.5 mg/dL (10/28/14 10:13 AM) 25-Hydroxy D2 <7 ng/mL (10/28/14 10:13 AM) 25-Hydroxy D3 36 ng/mL (10/28/14 10:13 AM) 25-Hydroxy D Total [30-74 ng/mL] 36 ng/mL 2 (10/28/14 10:13 AM) Vitamin B12 Lvl [213-816 pg/mL] >2000 pg/mL *HI* (10/28/14 10:13 AM) TSH with Reflex Free T4 [0.35-4.94] 2.49 (10/28/14 10:13 AM) 1Result Comment: Multiply eGFR results by 1.21 for race.2Result Comment: The desirable level of 25-Hydroxy Vitamin D Total(D2 + D3 ) is 30-74 ng/mL. A level consistently >200 is potentially toxic. Immunizations Vaccine Date Refusal Reason influenza virus vaccine, inactivated 02/15/15 Procedures Procedure Date Related Diagnosis Body Site Vertebroplasty1 01/05/15 Admission to hospital 04/2011 Knee replacement - L x 3; Dr. Suárez 1999 Cholecystotomy Hysterectomy Surgery - gall bladder2 1auto-populated from documented surgical [id number] bladder -- Dr. Strickland in [facility] -- Dr. Godfrey left knee-- Dr. Soliz Social History Social History Type Response Smoking Status Never smoker Assessment and Plan Extracted from: Title: Office Visit Note Author: Hayden Siddiqi MD Date: 10/28/14 Assessment/Plan B12 deficiency Ordered: cyanocobalamin, 1,000 mcg 1 mL, IntraMuscular, qMonth, # 10 mL, 0 Refill(s), other reason (Rx) Vitamin B12 Level Depression Fatigue Parkinson's disease - Dr. Mata Ordered: CBC w/ Differential Comprehensive Metabolic Panel TSH with Reflex Free T4 Urinary frequency Vitamin D deficiency Plan: I am adding sertraline 25 mg a day and I want to see back in 3 weeks. I'm also setting you up to see Dr. Solomon for your urinary frequency. I'm checking some lab tests and otherwise continue all current medications. Ordered: Vitamin D 25 Hydroxy Level Orders: sertraline, 25 mg 1 tabs, Oral, Daily, # 30 tabs, 6 Refill(s), Pharmacy: [facility], 1 tabs Oral Daily,x30 days
--- OUTSIDE RECORDS SUMMARY | 2017-03-13 13:43 | External Medical Summary | Referral Summary ---
:1930 Author Organization [facility] [place] [address] Care Team Providers Name Role Phone Gauri Gaby Michelle Primary Care Physician Encounter VC Date(s): 03/17/15 - 03/17/15 [facility] [place] [phone] [place] Discharge Diagnosis: Lower extremity edema Discharge Diagnosis: CKD (chronic kidney disease), stage IV Discharge Disposition: 01-Home or Self Care Attending Physician: Hayden Siddiqi MD Vital Signs Most recent to oldest [Reference Range]: 1 Temperature Tympanic [36.6-38.1 degC] 35.8 degC *LOW* (03/17/15 4:04 PM) Peripheral Pulse Rate [60-100 bpm] 80 bpm (03/17/15 4:04 PM) Respiratory Rate [14-20 br/min] 16 br/min (03/17/15 4:04 PM) Blood Pressure [90-140/60-90 mmHg] 140/72 mmHg (03/17/15 4:04 PM) Problem List Condition Effective Dates Status Health Status Informant Benign hypertension(Confirmed) Active Chronic renal failure(Confirmed) Active B12 deficiency(Confirmed) Active Thoracic compression Active fracture(Confirmed) DDD (degenerative disc disease), Active lumbar(Confirmed) Depression(Confirmed) Active [facility]enteritis [place] [facility](Conf[place]) 04/2011 Active GERD (gastroesophageal reflux Active disease)(Confirmed) Urinary frequency(Confirmed) Active Lumbago(Confirmed) Active Lumbar spondylosis(Confirmed) Active OA (osteoarthritis)(Confirmed) Active Parkinson's disease - Dr. Andrew Mata(Confirmed) Vitamin D deficiency(Confirmed) Active Allergies, Adverse Reactions, Alerts Substance Reaction Severity Status Biaxin Active clarithromycin rash Active Medications amLODIPine 5 mg oral tablet 5 mg 1 tabs, Oral, Daily, # 30 tabs, 6 Refill(s), Pharmacy: [facility], 1 tabs Oral Daily,x30 [...] T11 fall 2 weeks ago 805.2 / 093.13 Fax to [facility] [phone], See Instructions, # 1 Each, 0 Refill(s), Supply Start Date: 12/15/14 Status: Ordereddocusate sodium 50 mg oral capsule 2 caps, Oral, Bedtime (once a day), PRN Start Date: 07/24/14 Status: Orderedmetoprolol succinate 25 mg oral tablet, extended release 25 mg 1 tabs, Oral, Daily, # 30 tabs, 5 Refill(s), Pharmacy: [facility] Start Date: 11/20/14 Status: OrderedMiacalcin Nasal 200 intl units/inh nasal spray 1 sprays, Nasal, Daily, alternate nostrils, # 1 Each, 3 Refill(s), Pharmacy: [facility],1 sprays Nasal Daily,x30 days,Instr:alternate nostrils [...] Daily, # 30 tabs, 6 Refill(s), Pharmacy: [facility], 1 tabs Oral Daily,x30 days Start Date: 10/28/14 Stop Date: 05/26/15 Status: OrderedVitamin D3 2000 intl units oral tablet 1 tabs, Oral, Daily Start Date: 07/24/14 Status: Ordered Results Chemistry Most recent to oldest [Reference Range]: 1 Sodium Lvl [135-144 mEq/L] 139 mEq/L (03/17/15 4:37 PM) Potassium Lvl [3.5-5.2 mEq/L] 4.9 mEq/L (03/17/15 4:37 PM) Chloride [99-111 mEq/L] 107 mEq/L (03/17/15 4:37 PM) CO2 [22-31 mEq/L] 23 mEq/L (03/17/15 4:37 PM) AGAP [3-20] 9 (03/17/15 4:37 PM) BUN [10-20 mg/dL] 47 mg/dL *HI* (03/17/15 4:37 PM) Glucose Lvl [70-99 mg/dL] 108 mg/dL *HI* (03/17/15 4:37 PM) Creatinine Lvl [0.57-1.11 mg/dL] 1.60 mg/dL *HI* (03/17/15 4:37 PM) eGFR [>60 mL/min] 31 mL/min 1 *ABN* (03/17/15 4:37 PM) Calcium Lvl [8.9-10.5 mg/dL] 9.2 mg/dL (03/17/15 4:37 PM) 1Result Comment: Multiply eGFR results by 1.21 for race. Immunizations Vaccine Date Refusal Reason influenza virus vaccine, inactivated 02/15/15 Procedures Procedure Date Related Diagnosis Body Site Vertebroplasty1 01/05/15 Admission to hospital 04/2011 Knee replacement - L x 3; Dr. Suárez 1999 Cholecystotomy Hysterectomy Surgery - gall bladder2 1auto-populated from documented surgical [id number] bladder -- Dr. Strickland in [facility] -- Dr. Godfrey left knee-- Dr. Soliz Social History Social History Type Response Smoking Status Never smoker Assessment and Plan Extracted from: Title: Office Visit Note Author: Hayden Siddiqi MD Date: 03/17/15 Assessment/Plan Chronic kidney disease, stage 4 (severe), CKD (chronic kidney disease), stage IV Ordered: Basic Metabolic Panel Localized edema, Lower extremity edema Plan: We discussed some options. One option would be to stop the amlodipine but I am concerned about your blood pressure in that scenario. We discussed compression stockings but she can do that. Elevating her feet will help. Gautam bandages can also help. I'm going to set you up to see Dr. Walker for renal failure consult. Currently wearing a continue all current medications. We discussed the need to find a new primary care doctor. Ordered: Basic Metabolic Panel
--- OUTSIDE RECORDS SUMMARY | 2017-03-13 13:43 | External Medical Summary | Referral Summary ---
:1930 Author Organization [facility] Address [address] [place] [address] [place] [address] Care Team Providers Name Role Phone Gaby Astorga Michelle Primary Care Physician Encounter VC Date(s): 10/28/14 - 10/28/14 [facility] [address] [place] [address] [place] [phone] Discharge Diagnosis: OTHER B-COMPLEX DEFICIENCIES Discharge Disposition: 01-Home or Self Care Attending Physician: Hayden Siddiqi MD Vital Signs No data available for this section Problem List Condition Effective Dates Status Health [...] Daily, # 30 tabs, 6 Refill(s), [facility], 1 tabs Oral Daily,x30 days [...] weeks ago 805.2 / 733.13 Fax to [facility] [phone], See Instructions, # 1 Each, 0 Refill(s), Supply Start Date: 12/15/14 Status: Ordereddocusate sodium 50 mg oral capsule 2 caps, Oral, Bedtime (once a day), PRN Start Date: 07/24/14 Status: Orderedmetoprolol succinate 25 mg oral tablet, extended release 25 mg 1 tabs, Oral, Daily, # 30 tabs, 5 Refill(s), Pharmacy: [facility] Start Date: 11/20/14 Status: OrderedMiacalcin Nasal 200 intl units/inh nasal spray 1 sprays, Nasal, Daily, alternate nostrils, # 1 Each, 3 Refill(s), Pharmacy: [facility],1 sprays Nasal Daily,x30 days,Instr:alternate nostrils [...] Daily, # 30 tabs, 6 Refill(s), Pharmacy: [facility], 1 tabs Oral Daily,x30 days [...] - gall bladder2 1auto-populated from documented surgical [id number] bladder -- Dr. Strickland in [facility] -- Dr. Godfrey left knee-- Dr. Soliz Social History Social History Type Response Smoking Status Never smoker Assessment and Plan No data available for this section
--- OUTSIDE RECORDS SUMMARY | 2017-03-13 13:45 | External Medical Summary | Referral Summary ---
:1930 Author Organization [facility] Address [address] [place] [address] Care Team Providers Name Role Phone Gaby Astorga Primary Care Physician Encounter VC Date(s): 12/23/14 - 12/23/14 [facility] [address] [place] [address]- [phone] Discharge Diagnosis: Compression fracture of T12 vertebra Discharge Diagnosis: Lumbago Discharge Disposition: 01-Home or Self Care Attending Physician: Clarisse Rangel Admitting Physician: Clarisse Rangel Referring Physician: Hayden Siddiqi MD Vital Signs Most recent to oldest [Reference Range]: 1 Temperature Oral [35.8-37.3 degC] 36.4 degC (12/23/14 2:38 PM) Blood Pressure [90-140/60-90 mmHg] 124/76 mmHg (12/23/14 2:38 PM) Problem List Condition Effective Dates Status [...] Daily, # 30 tabs, 6 Refill(s), Pharmacy: [facility], 1 tabs Oral Daily,x30 days [...] Compression fracture T11 fall 2 weeks ago 365.2 / 281.18 Fax to [facility] [phone], See Instructions, # 1 Each, 0 Refill(s), Supply Start Date: 12/15/14 Status: Ordereddocusate sodium 50 mg oral capsule 2 caps, Oral, Bedtime (once a day), PRN Start Date: 07/24/14 Status: Orderedmetoprolol succinate 25 mg oral tablet, extended release 25 mg 1 tabs, Oral, Daily, # 30 tabs, 5 Refill(s), Pharmacy: [facility] Start Date: 11/20/14 Status: OrderedMiacalcin Nasal 200 intl units/inh nasal spray 1 sprays, Nasal, Daily, alternate nostrils, # 1 Each, 3 Refill(s), Pharmacy: [facility],1 sprays Nasal Daily,x30 days,Instr:alternate nostrils [...] Daily, # 30 tabs, 6 Refill(s), Pharmacy: [facility], 1 tabs Oral Daily,x30 days [...] - gall bladder2 1auto-populated from documented surgical [id number] bladder -- Dr. Strickland in [facility] -- Dr. Godfrey left knee-- Dr. Soliz Social History Social History Type Response Smoking Status Never smoker Assessment and Plan Extracted from: Title: Office Visit Note Author: Clarisse Rangel Date: 12/23/14 Assessment/Plan Compression fracture of T12 vertebra Lumbago Dr. Gandhi and I discussed with the patient that her previous lumbar spine x- ray from 12/14/2014 noted a 70 percent compression deformity of T11 although the x-ray of the thoracic spine from 12/18/2014 r eported an acute compression fracture with retropulsion of fragment involving the T12 vertebral a 60 a 70 percent loss of height although no central canal stenosis was seen as a result of the fracture. The course and caliber of the thoracic cord was intact. Differences in reports may be due to differences in nomenclature. This may be amenable to kyphoplasty. Dr. Gandhi discussed with the patient that he felt that herT12 compression fracture is acute and symptomatic. Dr. Gandhi recommends proceeding with T12 kyphoplasty vertebral augmentation keeping within nomenclature of her thoracic MRI report. Dr. Gandhi did explain to the patient and her friend what was involved with kyphoplasty vertebral augmentation. He explained rationale for the procedure possible complications and she wished to proceed. Discussed risks including bleeding infection allergic reaction to medication nerve irritation or damage. Remote possible risks including paraplegia quadriplegia stroke seizure embolus. Increase risk for adjacent level compression fractures. Possibility of cement migration. There is riskassociated with anesthesia. The patient wishes to proceed. Dr. Gandhi recommend scheduling this at [facility]. She was provided with additional literatu re regarding the procedure. She understands there is no guarantee in terms of the amount of pain relief she may have from it. She plans to continue with the same regimen of medications. [place] 5 mg one twice daily. She really does not feel that much is actually helping her with the pain symptoms. Increased dose of narcot ics would likely cause increased constipation nausea. Bracing likely not be very effective due to the level of a compression fracture and scoliosis. She seemsto behaving too much pain to participate inphysical therapy. She will follow-up here in 10 days or so following her vertebral augmentation kyphoplasty, sooner if needed. She and her friend voiced understanding and agrees to the above plans. Patient also plan s on discussing this further with her daughters who she plans on having come up from [facility]. Physical exam findings history present illness recommendations are performed with an agreement with Dr. Cyr findings.
--- OUTSIDE RECORDS SUMMARY | 2017-03-13 13:45 | External Medical Summary | Referral Summary ---
:1930 Author Organization [facility] [place] [address] Care Team Providers Name Role Phone Gauri Gaby Michelle Primary Care Physician Encounter VC Date(s): 10/28/14 - 10/28/14 [facility] [place] [phone] [place] Discharge Disposition: [...] Active lumbar(Confirmed) Depression(Confirmed) Active Gastroenteritis - hosp [facility](Confirmed) 04/2011 Active GERD (gastroesophageal reflux Active disease)(Confirmed) Urinary frequency(Confirmed) Active Lumbago(Confirmed) Active Lumbar spondylosis(Confirmed) Active OA (osteoarthritis)(Confirmed) Active Parkinson's disease - Dr. Andrew Mata(Confirmed) Vitamin D deficiency(Confirmed) Active Allergies, Adverse Reactions, Alerts Substance Reaction Severity Status Biaxin Active clarithromycin rash Active Medications amLODIPine 5 mg oral tablet 5 mg 1 tabs, Oral, Daily, # 30 tabs, 6 Refill(s), Pharmacy: [facility], 1 tabs Oral Daily,x30 days Start Date: [...] T11 fall 2 weeks ago 805.2 / 038.21 Fax to [facility] [phone], See Instructions, # 1 Each, 0 Refill(s), Supply Start Date: 12/15/14 Status: Ordereddocusate sodium 50 mg oral capsule 2 caps, Oral, Bedtime (once a day), PRN Start Date: 07/24/14 Status: Orderedmetoprolol succinate 25 mg oral tablet, extended release 25 mg 1 tabs, Oral, Daily, # 30 tabs, 5 Refill(s), Pharmacy: [facility]28 Start Date: 11/20/14 Status: OrderedMiacalcin Nasal 200 intl units/inh nasal spray 1 sprays, Nasal, Daily, alternate nostrils, # 1 Each, 3 Refill(s), Pharmacy: [facility]28,1 sprays Nasal Daily,x30 [...] Daily, # 30 tabs, 6 Refill(s), Pharmacy: [facility], 1 tabs Oral Daily,x30 [...] [0.80-3.30 10*3] 1.97 10*3 (10/28/14 10:13 AM) [place] Absolute [0.30-1.00 10*3] 0.74 10*3 (10/28/14 10:13 [...] - gall bladder2 1auto-populated from documented surgical [id number] bladder -- Dr. Strickland in [facility] -- Dr. Godfrey left knee-- [...] Daily, # 30 tabs, 6 Refill(s), Pharmacy: [facility], 1 tabs Oral Daily,x30 days
--- OUTSIDE RECORDS SUMMARY | 2017-03-13 13:45 | External Medical Summary | Referral Summary ---
:1930 Author Organization [facility] [place] [address] Care Team Providers Name Role Phone Gauri Gaby Michelle Primary Care Physician Encounter VC Date(s): 03/01/15 - 03/01/15 [facility] [place] [phone] [place] Discharge Diagnosis: Benign hypertension Discharge Disposition: 01-Home or Self Care Attending Physician: Hayden Siddiqi MD Admitting Physician: Hayden Siddiqi MD Vital Signs Most recent to oldest [Reference Range]: 1 Temperature Tympanic [36.6-38.1 degC] 36.5 degC *LOW* (03/01/15 2:22 PM) Peripheral Pulse Rate [60-100 bpm] 72 bpm (03/01/15 2:22 PM) Blood Pressure [90-140/60-90 mmHg] 146/94 mmHg *HI* (03/01/15 2:22 PM) Problem List Condition Effective Dates Status Health Status Informant Benign hypertension(Confirmed) Active Chronic renal failure(Confirmed) Active B12 deficiency(Confirmed) Active Thoracic compression Active fracture(Confirmed) DDD (degenerative disc disease), Active lumbar(Confirmed) Depression(Confirmed) Active Gastroenteritis - hosp [facility](Confirmed) 04/2011 Active GERD (gastroesophageal reflux Active disease)(Confirmed) Urinary frequency(Confirmed) Active Lumbago(Confirmed) Active Lumbar spondylosis(Confirmed) Active OA (osteoarthritis)(Confirmed) Active Parkinson's disease - Dr. Andrew Mata(Confirmed) Vitamin D deficiency(Confirmed) Active Allergies, Adverse Reactions, Alerts Substance Reaction Severity Status Biaxin Active clarithromycin rash Active Medications amLODIPine 5 mg oral tablet 5 mg 1 tabs, Oral, Daily, # 30 tabs, 6 Refill(s), Pharmacy: [facility], 1 tabs Oral Daily,x30 days [...] Compression fracture T11 fall 2 weeks ago 685.2 / 010.91 Fax to [facility] [phone], See Instructions, # 1 Each, 0 Refill(s), Supply Start Date: 12/15/14 Status: Ordereddocusate sodium 50 mg oral capsule 2 caps, Oral, Bedtime (once a day), PRN Start Date: 07/24/14 Status: Orderedmetoprolol succinate 25 mg oral tablet, extended release 25 mg 1 tabs, Oral, Daily, # 30 tabs, 5 Refill(s), Pharmacy: [facility]28 Start Date: 11/20/14 Status: OrderedMiacalcin Nasal 200 intl units/inh nasal spray 1 sprays, Nasal, Daily, alternate nostrils, # 1 Each, 3 Refill(s), Pharmacy: [facility]28,1 sprays Nasal Daily,x30 [...] Daily, # 30 tabs, 6 Refill(s), Pharmacy: [facility], 1 tabs Oral Daily,x30 [...] - gall bladder2 1auto-populated from documented surgical [id number] bladder -- Dr. Strickland in [facility] -- Dr. Godfrey left knee-- Dr. Soliz Social History Social History Type Response Smoking Status Never smoker Assessment and Plan Extracted from: Title: Office Visit Note Author: Hayden Siddiqi MD Date: 03/01/15 Assessment/Plan Benign hypertension Plan: For now I think I'm going to continue the same dose of medication. I think he should have a med check up in about 3 months. If you're having any problems prior that [facility] let me know. We discussed the need to find a new primary care doctor.
--- OUTSIDE RECORDS SUMMARY | 2017-03-13 13:45 | External Medical Summary | Referral Summary ---
:1930 Author Organization [facility] Address [address] [place] [address] [place] [address] Care Team Providers Name Role Phone Gaby Astorga Michelle Primary Care Physician Encounter VC Date(s): 09/30/14 - 09/30/14 [facility] [address] [place] [address] [place] [phone] [place] Discharge Diagnosis: OTHER [...] Daily, # 30 tabs, 6 Refill(s), Pharmacy: [facility], 1 tabs Oral Daily,x30 days Start Date: [...] weeks ago 805.2 / 733.13 Fax to [facility] [phone], See Instructions, # 1 Each, 0 Refill(s), Supply Start Date: 12/15/14 Status: Ordereddocusate sodium 50 mg oral capsule 2 caps, Oral, Bedtime (once a day), PRN Start Date: 07/24/14 Status: Orderedmetoprolol succinate 25 mg oral tablet, extended release 25 mg 1 tabs, Oral, Daily, # 30 tabs, 5 Refill(s), Pharmacy: [facility]28 Start Date: 11/20/14 Status: OrderedMiacalcin Nasal 200 intl units/inh nasal spray 1 sprays, Nasal, Daily, alternate nostrils, # 1 Each, 3 Refill(s), Pharmacy: [facility],1 sprays Nasal Daily,x30 days,Instr:alternate nostrils [...] Daily, # 30 tabs, 6 Refill(s), Pharmacy: [facility], 1 tabs Oral Daily,x30 days [...] - gall bladder2 1auto-populated from documented surgical [id number] bladder -- Dr. Strickland in [facility] -- Dr. Godfrey left knee-- Dr. Soliz Social History Social History Type Response Smoking Status Never smoker Assessment and Plan No data available for this section
--- OUTSIDE RECORDS SUMMARY | 2017-03-13 13:46 | External Medical Summary | Referral Summary ---
:1930 Author Organization [facility] Address [address] [place] [address] Care Team Providers Name Role Phone Ekaterina Rust Primary Care Physician Encounter VC Date(s): 11/30/15 - 12/04/15 [facility] [address] [place] [address] [phone] Discharge Disposition: 03-Fdc Facility Attending Physician: Justyn Carey MD Admitting Physician: Justyn Carey MD Vital Signs Most recent to oldest [Reference Range]: 1 Temperature Oral [35.8-37.3 degC] 36.6 degC (12/04/15 9:00 AM) Peripheral Pulse Rate [60-100 bpm] 100 bpm (12/04/15 9:00 AM) Heart Rate Monitored [60-100 bpm] 86 bpm (12/03/15 11:00 PM) Respiratory Rate [14-20 br/min] 20 br/min (12/04/15 9:00 AM) Blood Pressure [90-140/60-90 mmHg] 133/71 mmHg (12/04/15 9:00 AM) SpO2 99 % (12/04/15 9:00 AM) Remote Telemetry Ongoing (12/04/15 9:30 AM) Problem List Condition Effective Dates Status Health Status Informant Acute pain(Confirmed) Active At risk of pressure sore(Confirmed) Active Benign hypertension(Confirmed) Active Bleeding precautions(Confirmed)1 Active Bowel dysfunction(Confirmed)2 Active Cardiac disorder(Confirmed)3 Active Chronic renal failure(Confirmed) Active B12 deficiency(Confirmed) Active Thoracic compression Active fracture(Confirmed) DDD (degenerative disc disease), Active lumbar(Confirmed) Depression(Confirmed) Active Fluid imbalance(Confirmed)4 Active Gastroenteritis - hosp [facility](Confirmed) 04/2011 Active GERD (gastroesophageal reflux Active disease)(Confirmed) Urinary frequency(Confirmed) Active Lumbago(Confirmed) Active Lumbar spondylosis(Confirmed) Active OA (osteoarthritis)(Confirmed) Active Parkinson's disease - Active Adolfo(Confirmed) Tissue perfusion Active alteration(Confirmed)5 Vitamin D deficiency(Confirmed) Active 1Problem added automatically by system based on initiation of Bleeding Precautions Plan of [id number] added automatically by system based on initiation of Bowel Dysfunction Plan of [id number] added automatically by system based on initiation of Cardiac Output/Ineffective Cardiac Perfusion Plan of [id number] added automatically by system based on initiation of Fluid Volume Imbalance Plan of [id number] added automatically by system based on initiation of Tissue Perfusion Cerebral Plan of Care Allergies, Adverse Reactions, Alerts Substance Reaction Severity Status Biaxin Active clarithromycin rash Active Medications acetaminophen 1,000 mg, Oral, q6hr, Pain Mild (1-3), 500 mg - 1,000 mg, 0 Refill(s) Start Date: 11/30/15 Status: Orderedaspirin 81 mg, Oral, Every other day, 0 Refill(s) Start Date: 11/30/15 Status: Orderedcarbidopa-levodopa 50 mg-200 mg oral tablet, extended release 1 tabs, Oral, TID, 0 Refill(s) Start Date: 11/30/15 Status: Ordereddocusate 200 mg, Oral, Bedtime (once a day), 100 mg - 200 mg, 0 Refill(s) Start Date: 11/30/15 Status: OrderedMelatonin 3 mg, Oral, Bedtime (once a day), 0 Refill(s) Start Date: 11/30/15 Status: OrderedMiraLax 17 g, Oral, Daily, Constipation, 0 Refill(s) Start Date: 11/30/15 Status: Orderedmirtazapine 15 mg oral tablet 7.5 mg 0.5 tabs, Oral, Bedtime (once a day), 0 Refill(s) Start Date: 11/30/15 Status: Orderedocular lubricant ophthalmic solution 2 drops, Eye-Both, Daily, Dry Eyes, 0 Refill(s) Start Date: 11/30/15 Status: Orderedomeprazole 20 mg oral delayed release capsule 20 mg 1 caps, Oral, Daily, 0 Refill(s) Start Date: 11/30/15 Status: OrderedPromethazine with Codeine 6.25 mg-10 mg/5 mL oral syrup 5 mL, Oral, Bedtime (once a day), as needed for cough, 0 Refill(s) Start Date: 11/30/15 Status: Orderedsertraline 25 mg oral tablet 25 mg 1 tabs, Oral, Bedtime (once a day), 0 Refill(s) Start Date: 11/30/15 Status: OrderedVitamin D3 1,000 Intl_Units, Oral, Daily, 0 Refill(s) Start Date: 11/30/15 Status: Ordered Results Hematology Most recent to oldest [Reference Range]: 1 WBC [4.8-10.8 10*3/uL] 7.2 10*3/uL (12/04/15 5:30 AM) RBC [4.00-5.20] 3.54 *LOW* (12/04/15 5:30 AM) Hgb [12.0-16.0 gm/dL] 10.8 gm/dL *LOW* (12/04/15 5:30 AM) Hct [37.0-47.0 %] 33.1 % *LOW* (12/04/15 5:30 AM) MCV [82.0-99.0 fL] 93.5 fL (12/04/15 5:30 AM) MCH [27.0-32.0 pg] 30.5 pg (12/04/15 5:30 AM) MCHC [32.0-36.0 gm/dL] 32.6 gm/dL (12/04/15 5:30 AM) RDW [11.5-14.5 %] 13.8 % (12/04/15 5:30 AM) Platelet [150-400 10*3/uL] 196 10*3/uL (12/04/15 5:30 AM) MPV [9.4-12.4 fL] 8.9 fL *LOW* (12/04/15 5:30 AM) Immature Granulocytes [0.0-1.0 %] 0.1 % (11/30/15 3:41 PM) Neutrophils [51-75 %] 85 % *HI* (11/30/15 3:41 PM) Lymphocytes [20-46 %] 8 % *LOW* (11/30/15 3:41 PM) Monocytes [4-11 %] 7 % (11/30/15 3:41 PM) Eosinophils [0-4 %] 1 % (11/30/15 3:41 PM) Basophils [0-2 %] 0 % (11/30/15 3:41 PM) Neutro Absolute [1.90-7.00 10*3] 7.33 10*3 *HI* (11/30/15 3:41 PM) Lymph Absolute [0.80-3.30 10*3] 0.67 10*3 *LOW* (11/30/15 3:41 PM) [place] Absolute [0.30-1.00 10*3] 0.61 10*3 (11/30/15 3:41 PM) Eos Absolute [0.00-0.50 10*3] 0.04 10*3 (11/30/15 3:41 PM) Baso Absolute [0.00-0.20 10*3] 0.01 10*3 (11/30/15 3:41 PM) Nucleated RBC Automated [0 /100 WBC] 0.0 /100 WBC (11/30/15 3:41 PM) Coagulation Most recent to oldest [Reference Range]: 1 INR [0.9-1.2] 1.0 (11/30/15 3:41 PM) PTT [25.0-35.0 seconds] 65.7 seconds *HI* (12/01/15 3:43 PM) Chemistry Most recent to oldest [Reference Range]: 1 Sodium Lvl [136-144 mEq/L] 134 mEq/L *LOW* (12/04/15 5:30 AM) Potassium Lvl [3.6-5.1 mEq/L] 3.6 mEq/L (12/04/15 5:30 AM) Chloride [99-109 mEq/L] 98 mEq/L *LOW* (12/04/15 5:30 AM) CO2 [22-32 mEq/L] 25 mEq/L (12/04/15 5:30 AM) AGAP [3-20] 11 (12/04/15 5:30 AM) BUN [4-20 mg/dL] 61 mg/dL *HI* (12/04/15 5:30 AM) Glucose Lvl [70-100 mg/dL] 105 mg/dL *HI* (12/04/15 5:30 AM) Creatinine Lvl [0.44-1.03 mg/dL] 2.64 mg/dL *HI* (12/04/15 5:30 AM) eGFR [>60] 17 1 *ABN* (12/04/15 5:30 AM) Calcium Lvl [8.6-10.0 mg/dL] 8.7 mg/dL (12/04/15 5:30 AM) Albumin Lvl [3.5-4.8 gm/dL] 3.1 gm/dL *LOW* (12/04/15 5:30 AM) Total Protein [6.1-7.9 gm/dL] 7.0 gm/dL (11/30/15 3:41 PM) Globulin [1.9-4.3 gm/dL] 3.3 gm/dL (11/30/15 3:41 PM) ALT [14-54 U/L] 5 U/L *LOW* (11/30/15 3:41 PM) AST [15-41 U/L] 28 U/L (11/30/15 3:41 PM) Alk Phos [26-104 U/L] 99 U/L (11/30/15 3:41 PM) Bili Total [0.2-1.2 mg/dL] 0.8 mg/dL 2 (11/30/15 3:41 PM) Iron [50-170 mcg/dL] 56 mcg/dL (12/03/15 5:20 AM) TIBC [286-569 mcg/dL] 305 mcg/dL (12/03/15 5:20 AM) Iron Sat [11-46 %] 18 % (12/03/15 5:20 AM) Transferrin [192-382 mg/dL] 205 mg/dL (12/03/15 5:20 AM) Ferritin Lvl [11-307 ng/mL] 52 ng/mL (12/03/15 5:20 AM) Magnesium Lvl [1.8-2.5 mg/dL] 2.0 mg/dL (12/04/15 5:30 AM) Phosphorus [2.4-4.7 mg/dL] 3.8 mg/dL 3 (12/04/15 5:30 AM) BNP [0-99 pg/mL] 469 pg/mL *HI* (11/30/15 3:41 PM) Troponin [<0.06 ng/mL] <0.05 ng/mL (12/01/15 5:22 PM) TSH with Reflex Free T4 [0.35-5.50] 1.01 (11/30/15 3:41 PM) 1Result Comment: Multiply eGFR results by 1.21 for race.2Result Comment: Naproxen, specifically the metabolite O-desmethylnaproxen, may cause spurious elevation in Total Bilirubin levels.3Result Comment: High dosages of liposomal Amphotericin B (AmBisome) therapy or other drug preparations that use a liposomal envelope to facilitate drug delivery may cause falsely elevated results for phosphorus.Urinalysis Most recent to oldest [Reference Range]: 1 UA Color Yellow (12/02/15 12:00 AM) UA Appear Cloudy *ABN* (12/02/15 12:00 AM) UA pH [5.0-8.0] 5.0 (12/02/15 12:00 AM) UA Leuk Est [Negative] Pos 2+ *ABN* (12/02/15 12:00 AM) UA Nitrite [Negative] Negative (12/02/15 12:00 AM) UA Protein [Negative] Pos 1+ *ABN* (12/02/15 12:00 AM) UA Glucose [Negative] Negative (12/02/15 12:00 AM) UA Ketones [Negative] Negative (12/02/15 12:00 AM) UA Urobilinogen [<1.0] Negative (12/02/15 12:00 AM) UA Bili [Negative] Negative (12/02/15 12:00 AM) UA Blood [Negative] Pos 3+ *ABN* (12/02/15 12:00 AM) UA Spec Grav [1.003-1.030] 1.010 (12/02/15 12:00 AM) Type Clean Catch (12/02/15 12:00 AM) UA WBC [0-4 /HPF] >50 /HPF *ABN* (12/02/15 12:00 AM) UA RBC [0-2 /HPF] >50 /HPF *ABN* (12/02/15 12:00 AM) Epithelial Cells 2-5 (12/02/15 12:00 AM) UA Bacteria Occasional *ABN* (12/02/15 12:00 AM) Crystals Amorphous (12/02/15 12:00 AM) UA Hyal Cast [0-3 [LPF]] >12 [LPF] *ABN* (12/02/15 12:00 AM) Microbiology Reports TEST:Urine Culture STATUS:Order in Progress BODY SITE: SOURCE:Urine COLLECTED DATE/TIME:12/02/15 12:00 AMUrine CultureNo growth Immunizations Vaccine Date Refusal Reason influenza virus vaccine, inactivated 02/15/15 Procedures Procedure Date Related Diagnosis Body Site Vertebroplasty1 01/05/15 Admission to hospital 04/2011 Knee replacement - L x 3; Dr. Suárez 1999 Cholecystotomy Hysterectomy Surgery - gall bladder2 1auto-populated from documented surgical [id number] bladder -- Dr. Strickland in [facility] -- Dr. Godfrey left knee-- Dr. Soliz Social History Social History Type Response Smoking Status Never smoker Assessment and Plan No data available for this section
--- OUTSIDE RECORDS SUMMARY | 2017-03-13 13:48 | External Medical Summary | Referral Summary ---
:1930 Author Organization [facility] Address [address] [place] [address] [place] [address] Care Team Providers Name Role Phone Gaby Astorga Michlele Primary Care Physician Encounter VC Date(s): 09/02/14 - 09/02/14 [facility] [address] [place] [address] [place] [phone] [place] Discharge Diagnosis: OTHER [...] Daily, # 30 tabs, 6 Refill(s), Pharmacy: [facility], 1 tabs Oral Daily,x30 days Start Date: [...] weeks ago 805.2 / 733.13 Fax to [facility] [phone], See Instructions, # 1 Each, 0 Refill(s), Supply Start Date: 12/15/14 Status: Ordereddocusate sodium 50 mg oral capsule 2 caps, Oral, Bedtime (once a day), PRN Start Date: 07/24/14 Status: Orderedmetoprolol succinate 25 mg oral tablet, extended release 25 mg 1 tabs, Oral, Daily, # 30 tabs, 5 Refill(s), Pharmacy: [facility]28 Start Date: 11/20/14 Status: OrderedMiacalcin Nasal 200 intl units/inh nasal spray 1 sprays, Nasal, Daily, alternate nostrils, # 1 Each, 3 Refill(s), Pharmacy: [facility],1 sprays Nasal Daily,x30 days,Instr:alternate nostrils [...] Daily, # 30 tabs, 6 Refill(s), Pharmacy: [facility], 1 tabs Oral Daily,x30 days [...] - gall bladder2 1auto-populated from documented surgical [id number] bladder -- Dr. Strickland in [facility] -- Dr. Godfrey left knee-- Dr. Soliz Social History Social History Type Response Smoking Status Never smoker Assessment and Plan No data available for this section
--- OUTSIDE RECORDS SUMMARY | 2017-03-13 13:48 | External Medical Summary | Referral Summary ---
:1930 Author Organization [facility] Address [address] [place] [address] [place] [address] Care Team Providers Name Role Phone Gaby Astorga Michelle Primary Care Physician Encounter VC Date(s): 10/28/14 - 10/28/14 [facility] [address] [place] [address] [place] [phone] [place] Discharge Diagnosis: OTHER [...] Daily, # 30 tabs, 6 Refill(s), [facility], 1 tabs Oral Daily,x30 days [...] weeks ago 805.2 / 733.13 [phone], See Instructions, # 1 Each, 0 Refill(s), Supply Start Date: 12/15/14 Status: Ordereddocusate sodium 50 mg oral capsule 2 caps, Oral, Bedtime (once a day), PRN Start Date: 07/24/14 Status: Orderedmetoprolol succinate 25 mg oral tablet, extended release 25 mg 1 tabs, Oral, Daily, # 30 tabs, 5 Refill(s), Pharmacy: [facility]28 Start Date: 11/20/14 Status: OrderedMiacalcin Nasal 200 intl units/inh nasal spray 1 sprays, Nasal, Daily, alternate nostrils, # 1 Each, 3 Refill(s), Pharmacy: [facility]28,1 sprays Nasal Daily,x30 days,Instr:alternate nostrils [...] Daily, # 30 tabs, 6 Refill(s), Pharmacy: [facility], 1 tabs Oral Daily,x30 days [...] - gall bladder2 1auto-populated from documented surgical [id number] bladder -- Dr. Strickland in [facility]. Godfrey left knee-- Dr. Soliz Social History Social History Type Response Smoking Status Never smoker Assessment and Plan No data available for this section
--- OUTSIDE RECORDS SUMMARY | 2017-03-13 13:48 | External Medical Summary | Referral Summary ---
:1930 Author Organization Via [facility] Address [address] [place] [address] Care Team Providers Name Role Phone Gaby Astorga Michelle Primary Care Physician Encounter VC Date(s): 01/05/15 - 01/05/15 [facility] [address] [place] [address] [phone] Discharge Diagnosis: Thoracic compression fracture Final: CLOSED FRACTURE OF DORSAL [THORACIC] VERTEBRA WITHOUT MENTION OF SPINAL CORD INJURY Final: Hypertensive chronic kidney disease, benign, with chronic kidney disease stage I through stage IV, or unspecified Final: Chronic kidney disease, unspecified Final: PARALYSIS AGITANS Final: UNDIAGNOSED CARDIAC MURMURS Final: OTHER B-COMPLEX DEFICIENCIES Final: UNSPECIFIED VITAMIN D DEFICIENCY Final: ESOPHAGEAL REFLUX Final: OSTEOARTHROSIS, UNSPECIFIED WHETHER GENERALIZED OR LOCALIZED, INVOLVING UNSPECIFIED SITE Final: URINARY FREQUENCY Final: DEPRESSIVE DISORDER, NOT ELSEWHERE CLASSIFIED Discharge Disposition: 01-Home or Self Care Attending Physician: Bradly Gandhi MD Admitting Physician: Bradly Gandhi MD Vital Signs Most recent to oldest [Reference Range]: 1 Temperature Tympanic [36.6-38.1 degC] 36.6 degC (01/05/15 8:10 AM) Temperature Skin [36-37 degC] 36.4 degC (01/05/15 11:30 AM) Apical Heart Rate [60-100 bpm] 85 bpm (01/05/15 8:10 AM) Peripheral Pulse Rate [60-100 bpm] 76 bpm (01/05/15 11:30 AM) Respiratory Rate [14-20 br/min] 18 br/min (01/05/15 11:30 AM) Blood Pressure [90-140/60-90 mmHg] 160/83 mmHg *HI* (01/05/15 11:30 AM) SpO2 97 % (01/05/15 11:30 AM) Problem List Condition Effective Dates Status [...] Daily, # 30 tabs, 6 Refill(s), Pharmacy: [facility], 1 tabs Oral Daily,x30 days [...] Compression fracture T11 fall 2 weeks ago 094.2 / 780.45 Fax to [facility] [place] [phone], See Instructions, # 1 Each, 0 Refill(s), Supply Start Date: 12/15/14 Status: Ordereddocusate sodium 50 mg oral capsule 2 caps, Oral, Bedtime (once a day), PRN Start Date: 07/24/14 Status: Orderedmetoprolol succinate 25 mg oral tablet, extended release 25 mg 1 tabs, Oral, Daily, # 30 tabs, 5 Refill(s), Pharmacy: [facility] Start Date: 11/20/14 Status: OrderedMiacalcin Nasal 200 intl units/inh nasal spray 1 sprays, Nasal, Daily, alternate nostrils, # 1 Each, 3 Refill(s), Pharmacy: [facility]28,1 sprays Nasal Daily,x30 days,Instr:alternate nostrils [...] Daily, # 30 tabs, 6 Refill(s), Pharmacy: [facility], 1 tabs Oral Daily,x30 days Start Date: 10/28/14 Stop Date: 05/26/15 Status: OrderedVitamin D3 2000 intl units oral tablet 1 tabs, Oral, Daily Start Date: 07/24/14 Status: Ordered Results Chemistry Most recent to oldest [Reference Range]: 1 Sodium Venous [136-144 mEq/L] 137 mEq/L (01/05/15 8:31 AM) Potassium Venous [3.6-5.1 mEq/L] 4.1 mEq/L 1 (01/05/15 8:31 AM) Calcium Ionized Venous [1.19-1.41 mmol/L] 1.14 mmol/L *LOW* (01/05/15 8:31 AM) Total CO2 Venous [25-29 mEq/L] 24 mEq/L *LOW* (01/05/15 8:31 AM) HGB Venous NPT [12.0-16.0 gm/dL] 12.6 gm/dL (01/05/15 8:31 AM) HCT Venous [37.0-47.0 %] 37.0 % (01/05/15 8:31 AM) Glucose Venous [70-100 mg/dL] 105 mg/dL *HI* (01/05/15 8:31 AM) BUN Venous [4-20] 26 *HI* (01/05/15 8:31 AM) Creatinine Venous [0.4-1.0 mg/dL] 1.3 mg/dL *HI* (01/05/15 8:31 AM) Venous CL [99-109 mEq/L] 102 mEq/L (01/05/15 8:31 AM) Anion Gap, Tato [3-20] 11 (01/05/15 8:31 AM) 1Result Comment: This test was performed on a whole blood specimen. The presence or absence of hemolysis cannot be assessed. Hemolysis can falsely elevate potassium levels. Normals are for venous specimens only. Immunizations Vaccine Date Refusal Reason influenza virus vaccine, inactivated 02/15/15 Procedures Procedure Date Related Diagnosis Body Site Vertebroplasty1 01/05/15 Admission to hospital 04/2011 Knee replacement - L x 3; Dr. Suárez 1999 Cholecystotomy Hysterectomy Surgery - gall bladder2 1auto-populated from documented surgical [id number] bladder -- Dr. Strickland in [facility] -- Dr. Godfrey left knee-- Dr. Soliz Social History Social History Type Response Smoking Status Never smoker Assessment and Plan No data available for this section
--- OUTSIDE RECORDS SUMMARY | 2017-03-13 13:48 | External Medical Summary | Referral Summary ---
:1930 Author Organization [facility] Address [address] [place] [address] [place] [address] Care Team Providers Name Role Phone Gaby Astorga Michelle Primary Care Physician Encounter VC Date(s): 10/28/14 - 10/28/14 [facility] [address] [place] [address] [place] [phone] [place] Discharge Diagnosis: OTHER [...] Daily, # 30 tabs, 6 Refill(s), [facility], 1 tabs Oral Daily,x30 days [...] weeks ago 805.2 / 733.13 Fax to [facility] [phone], See Instructions, # 1 Each, 0 Refill(s), Supply Start Date: 12/15/14 Status: Ordereddocusate sodium 50 mg oral capsule 2 caps, Oral, Bedtime (once a day), PRN Start Date: 07/24/14 Status: Orderedmetoprolol succinate 25 mg oral tablet, extended release 25 mg 1 tabs, Oral, Daily, # 30 tabs, 5 Refill(s), Pharmacy: [facility]28 Start Date: 11/20/14 Status: OrderedMiacalcin Nasal 200 intl units/inh nasal spray 1 sprays, Nasal, Daily, alternate nostrils, # 1 Each, 3 Refill(s), Pharmacy: [facility],1 sprays Nasal Daily,x30 days,Instr:alternate nostrils [...] Daily, # 30 tabs, 6 Refill(s), Pharmacy: [facility], 1 tabs Oral Daily,x30 days [...] - gall bladder2 1auto-populated from documented surgical [id number] bladder -- Dr. Strickland in [facility] -- Dr. Godfrey left knee-- Dr. Soliz Social History Social History Type Response Smoking Status Never smoker Assessment and Plan No data available for this section
--- OUTSIDE RECORDS SUMMARY | 2017-03-13 13:48 | External Medical Summary | Referral Summary ---
:1930 Author Organization [facility] Address [address] [place] [address] [place] [address] Care Team Providers Name Role Phone Gaby Astorga Michelle Primary Care Physician Encounter VC Date(s): 10/28/14 - 10/28/14 [facility] [address] [place] [address] [place] [address]- Discharge Diagnosis: OTHER B-COMPLEX DEFICIENCIES Discharge Disposition: [...] Daily, # 30 tabs, 6 Refill(s), [facility], 1 tabs Oral Daily,x30 days [...] weeks ago 805.2 / 733.13 Fax to [facility] [phone], See Instructions, # 1 Each, 0 Refill(s), Supply Start Date: 12/15/14 Status: Ordereddocusate sodium 50 mg oral capsule 2 caps, Oral, Bedtime (once a day), PRN Start Date: 07/24/14 Status: Orderedmetoprolol succinate 25 mg oral tablet, extended release 25 mg 1 tabs, Oral, Daily, # 30 tabs, 5 Refill(s), Pharmacy: [facility]28 Start Date: 11/20/14 Status: OrderedMiacalcin Nasal 200 intl units/inh nasal spray 1 sprays, Nasal, Daily, alternate nostrils, # 1 Each, 3 Refill(s), Pharmacy: [facility],1 sprays Nasal Daily,x30 days,Instr:alternate nostrils [...] Daily, # 30 tabs, 6 Refill(s), Pharmacy: [facility], 1 tabs Oral Daily,x30 days [...] - gall bladder2 1auto-populated from documented surgical [id number] bladder -- Dr. Strickland in [facility] -- Dr. Godfrey left knee-- Dr. Soliz Social History Social History Type Response Smoking Status Never smoker Assessment and Plan No data available for this section
--- OUTSIDE RECORDS SUMMARY | 2017-03-13 13:50 | External Medical Summary | Referral Summary ---
:1930 Author Organization [facility] Address [address] [place] [address] [place] [address] Care Team Providers Name Role Phone Gauri Gaby Michelle Primary Care Physician Encounter VC Date(s): 02/15/15 - 02/15/15 [facility] [place] [phone] [place] Discharge Diagnosis: [...] Daily, # 30 tabs, 6 Refill(s), Pharmacy: [facility], 1 tabs Oral Daily,x30 [...] weeks ago 805.2 / 733.13 Fax to [facility] [phone], See Instructions, # 1 Each, 0 Refill(s), Supply Start Date: 12/15/14 Status: Ordereddocusate sodium 50 mg oral capsule 2 caps, Oral, Bedtime (once a day), PRN Start Date: 07/24/14 Status: Orderedmetoprolol succinate 25 mg oral tablet, extended release 25 mg 1 tabs, Oral, Daily, # 30 tabs, 5 Refill(s), Pharmacy: [facility]28 Start Date: 11/20/14 Status: OrderedMiacalcin Nasal 200 intl units/inh nasal spray 1 sprays, Nasal, Daily, alternate nostrils, # 1 Each, 3 Refill(s), Pharmacy: [facility]28,1 sprays Nasal Daily,x30 days,Instr:alternate [...] Daily, # 30 tabs, 6 Refill(s), Pharmacy: [facility], 1 tabs Oral Daily,x30 [...] - gall bladder2 1auto-populated from documented surgical [id number] bladder -- [place] [...] Daily, # 30 tabs, 6 Refill(s), Pharmacy: [facility], 1 tabs Oral Daily,x30 days
--- OUTSIDE RECORDS SUMMARY | 2017-03-13 13:50 | External Medical Summary | Referral Summary ---
:1930 Author Organization [facility] Address [address] [place] [address] Care Team Providers Name Role Phone Gaby Astorga Primary Care Physician Encounter VC Date(s): 11/06/14 - 11/06/14 [facility] [address] [place] [address] [place] Discharge Diagnosis: Neurogenic bladder, NOS Discharge Disposition: 01-Home or Self Care Attending Physician: Ronan Romero MD Admitting Physician: Ronan Romero MD Referring Physician: Hayden Siddiqi MD Vital Signs Most recent to oldest [Reference Range]: 1 Blood Pressure [90-140/60-90 mmHg] 140/88 mmHg (11/06/14 3:30 PM) Problem List Condition Effective Dates Status Health Status Informant Benign hypertension(Confirmed) Active Chronic renal failure(Confirmed) Active B12 deficiency(Confirmed) Active Thoracic compression Active fracture(Confirmed) DDD (degenerative disc disease), Active lumbar(Confirmed) Depression(Confirmed) Active Gastroenteritis - hosp [facility](Confirmed) 04/2011 Active GERD (gastroesophageal reflux Active disease)(Confirmed) Urinary frequency(Confirmed) Active Lumbago(Confirmed) Active Lumbar spondylosis(Confirmed) Active OA (osteoarthritis)(Confirmed) Active Parkinson's disease - Active Adolfo(Confirmed) Vitamin D deficiency(Confirmed) Active Allergies, Adverse Reactions, Alerts Substance Reaction Severity Status Biaxin Active clarithromycin rash Active Medications amLODIPine 5 mg oral tablet 5 mg 1 tabs, Oral, Daily, # 30 tabs, 6 Refill(s), Pharmacy: [facility], 1 tabs Oral Daily,x30 days [...] weeks ago 805.2 / 733.13 Fax to [facility] [phone], See Instructions, # 1 Each, 0 Refill(s), Supply Start Date: 12/15/14 Status: Ordereddocusate sodium 50 mg oral capsule 2 caps, Oral, Bedtime (once a day), PRN Start Date: 07/24/14 Status: Orderedmetoprolol succinate 25 mg oral tablet, extended release 25 mg 1 tabs, Oral, Daily, # 30 tabs, 5 Refill(s), Pharmacy: [facility]28 Start Date: 11/20/14 Status: OrderedMiacalcin Nasal 200 intl units/inh nasal spray 1 sprays, Nasal, Daily, alternate nostrils, # 1 Each, 3 Refill(s), Pharmacy: [facility],1 sprays Nasal Daily,x30 days,Instr:alternate nostrils [...] Daily, # 30 tabs, 6 Refill(s), Pharmacy: [facility], 1 tabs Oral Daily,x30 days [...] - gall bladder2 1auto-populated from documented surgical onny2hqts bladder -- Dr. Strickland in [facility] -- Dr. Godfrey left knee-- Dr. Soliz Social History Social History Type Response Smoking Status Never smoker Assessment and Plan Extracted from: Title: Ambulatory Patient Education Author: Ronan Romero MD Date: 02/11 Family Medicine Neurogenic Bladder Neurogenic bladder is a loss of normal control of bladder function. This is caused by damaged nerves, which can be a result of a variety of injuries and diseases. The muscles and nerves of the urinary system work together to store urine and release urine at the right time. Nerves carry messages from the bladder to the brain and from the brain to the muscles of th e bladder. In a neurogenic bladder, the nerves that are supposed to carry these messages do not work properly.There are 2 types of neurogenic bladder: Overactive. The bladder is unable to control when or how much to urinate. Even when only a small amount of urine is in the bladder, there may be an urge to urinate that cannot be controlled. This can result in wetting accidents (urge incontinence ). Underactive. The bladder holds much more urine than normal. Small amounts of urine leak out as bladder pressure builds because there is not a sensation that the bladder is full. This can also result in wetting accidents. CAUSES Neurogenic bladder can be caused by many problems. These include: Stroke. Multiple sclerosis. Infection. Trauma and injuries to the spine, spinal cord, depending on the level in the back of the injury. Diabetes. Parkinson's Disease. Brain and spinal cord tumors. defects that affect the brain or spinal cord. Guillain-Sharma syndrome. Complications of surgery involving the spine, spinal cord, or pelvis. SYMPTOMS The following are the most common problems and symptoms of neurogenic bladder. However, each individual may experience symptoms differently. Urinary tract infection symptoms: Pain or burning when urinating. Back or flank pain. Cloudy or bloody urine. Fever. Kidney stone symptoms. Symptoms of kidney stones include: Chills. Shivering. Feeling sick to your stomach (nausea ) and/or vomiting. Fever. Loss of bladder control (urinary incontinence ). Small urine volume when emptying bladder (voiding ). Urinary frequency and urgency. Dribbling urine. Loss of sensation of bladder fullness. Kidney failure. Infection in the blood stream (sepsis ). DIAGNOSIS When neurogenic bladder is suspected, both the nervous system and the bladder are examined. In addition to reviewing your complete medical history and having a physical exam, diagnostic procedures for neurogenic bladder may include: X-rays of the spine. Imaging tests of the kidneys, ureters, and bladder. These tests may include: MRI. CT scan. Ultrasound. Urodynamics or Cystometrogram (CMG). Thistests the nerves and muscles of the bladder. The test can show how much the bladder can hold and if it empties completely. EMG of the sphincter . This is measure of the electrical activity of the sphincter muscle and this helps determine when the sphincter is arnulfo or squeezing down. Video studies of the bladder and sphincter while you are urinating. Cystoscopy . Looking inside the bladder with a telescope like instrument. TREATMENT Specific treatment for neurogenic bladder will be determined by your caregiver based on: Your age, overall health, and medical history. Severity of symptoms. Cause of the nerve damage. Type of bladder problem present. Your tolerance for specific medications, procedures, or therapies. Expectations for the course of the condition. Your opinion or preference. Treatment may include: Antibiotic medicine. Medications. Insertion of a flexible tube (catheter ) to empty the bladder. Surgery to create an artificial sphincterto prevent urinary leakage. Sacral nerve stimulation (SNS) to help stimulate the nerves in order to empty the bladder. Sling surgery to hold the neck of the bladder and urethra in the proper position to prevent leakage. Bladder augmentation. Ileal loop surgery to connect a section of intestine to the ureters and positioned out to a opening on the abdomen. Urine comes out and can be collected into a plastic bag. Perineal pads may be used to catch urine. HOME CARE INSTRUCTIONS Take all medications as prescribed by your caregiver. Review your medications (both prescription and non-prescription) with your caregiver to make sure medications you are presently taking will not be harmful. Periodic blood, urine, and imaging tests may be required. Follow your caregiver's advice regarding the timing of these. Follow the catheter care instructions if you use a catheter. Use disposiable underwear if you have bladder weakness. SEEK MEDICAL CARE IF: You have increasing fatigue or weakness. You find there is less and less control of the urine stream despite treatment. You develop a loss of appetite or nausea. You begin to have trouble inserting the catheter. Your urine appears somewhat dark, cloudy, or has an unusual smell. SEEK IMMEDIATE MEDICAL CARE IF: You develop worsening abdominal or back pain. You cannot pass any urine. Your urine becomes bloody. You experience a lot of burning while urinating. You have a fever. You keep vomiting. You have bleeding with catheter insertion. Document Released: 10/28/2007 Document Revised: 04/02/2013 Document Reviewed: 02/11/2010 [facility] Patient Information 2014 [place]. No follow up information was provided. Extracted from: Title: Office Visit Note Author: Ronan Romero MD Date: 11/06/14 Assessment/Plan 1.Neurogenic bladder, NOS Symptoms likely due to a combination of bladder instability and bladder neurogenicity due to Parkinson's disease. Mechanism explained to her and her friend. I advised regular scheduled voidings and I gave her samples of Toviaz and Vesicare, the low doses of each. She will take one tablet a day of one of these and get back to me in a few weeks time to let me know w hich medication she thinks works best for her. I also advised that she cut back on fluids 4 hours before bedtime. We went over how much fluids she needs. She is to avoid constipation. Follow-up here emphasized. She agreed to return to the office in 4-6 weeks.
--- OUTSIDE RECORDS SUMMARY | 2017-03-13 13:50 | External Medical Summary | Referral Summary ---
:1930 Author Organization [facility] [place] [address] Care Team Providers Name Role Phone Gaby Astorga Michelle Primary Care Physician Encounter VC Date(s): 10/28/14 - 10/28/14 [facility] [place] [address] [place] Discharge Disposition: [...] Daily, # 30 tabs, 6 Refill(s), Pharmacy: [facility], 1 tabs Oral Daily,x30 days Start Date: [...] T11 fall 2 weeks ago 805.2 / 115.75 Fax to [facility] [phone], See Instructions, # 1 Each, 0 Refill(s), Supply Start Date: 12/15/14 Status: Ordereddocusate sodium 50 mg oral capsule 2 caps, Oral, Bedtime (once a day), PRN Start Date: 07/24/14 Status: Orderedmetoprolol succinate 25 mg oral tablet, extended release 25 mg 1 tabs, Oral, Daily, # 30 tabs, 5 Refill(s), Pharmacy: [facility]28 Start Date: 11/20/14 [...] Daily, # 30 tabs, 6 Refill(s), Pharmacy: [facility]28, 1 tabs Oral [...] [0.80-3.30 10*3] 1.97 10*3 (10/28/14 10:13 AM) [facility] [0.30-1.00 10*3] 0.74 10*3 (10/28/14 10:13 [...] - gall bladder2 1auto-populated from documented surgical [id number] bladder -- Dr. Strickland in [facility] -- Dr. Godfrey left knee-- [...] Daily, # 30 tabs, 6 Refill(s), Pharmacy: [facility] 0794, 1 tabs Oral Daily,x30 days
--- OUTSIDE RECORDS SUMMARY | 2017-03-13 13:50 | External Medical Summary | Referral Summary ---
:1930 Author [facility] Address [address] [facility] [address] [place] [address] Care Team Providers Name Role Phone Gaby Astorga Primary Care Physician Encounter VC Date(s): 01/05/15 - 01/05/15 [facility] [place] [address] [address] [place] Discharge Disposition: 01-Home or Self Care Attending Physician: Bradly Gandhi MD Admitting Physician: Bradly Gandhi MD Vital Signs No data available for [...] Daily, # 30 tabs, 6 Refill(s), Pharmacy: [facility], 1 tabs Oral Daily,x30 days Start Date: [...] weeks ago 805.2 / 733.13 Fax to [facility] [phone], See Instructions, # 1 Each, 0 Refill(s), Supply Start Date: 12/15/14 Status: Ordereddocusate sodium 50 mg oral capsule 2 caps, Oral, Bedtime (once a day), PRN Start Date: 07/24/14 Status: Orderedmetoprolol succinate 25 mg oral tablet, extended release 25 mg 1 tabs, Oral, Daily, # 30 tabs, 5 Refill(s), Pharmacy: [facility]28 Start Date: 11/20/14 Status: OrderedMiacalcin Nasal 200 intl units/inh nasal spray 1 sprays, Nasal, Daily, alternate nostrils, # 1 Each, 3 Refill(s), Pharmacy: [facility],1 sprays Nasal Daily,x30 days,Instr:alternate nostrils [...] Daily, # 30 tabs, 6 Refill(s), Pharmacy: [facility], 1 tabs Oral Daily,x30 days Start Date: 10/28/14 Stop Date: 05/26/15 Status: OrderedVitamin D3 2000 intl units oral tablet 1 tabs, Oral, Daily Start Date: 07/24/14 Status: Ordered Results No data available for this section Immunizations Vaccine Date Refusal Reason influenza virus vaccine, inactivated 02/15/15 Procedures Procedure Date Related Diagnosis Body Site Percutaneous vertebral augmentation, including 01/05/15 cavity creation (fracture reduction and bone biopsy included when performed) using mechanical device (eg, kyphoplasty), 1 vertebral body, unilateral or bilateral cannulation, inclusive of all imaging guidance Vertebroplasty1 01/05/15 Admission to hospital 04/2011 Knee replacement - L x 3; Dr. Suárez 1999 Cholecystotomy Hysterectomy Surgery - gall bladder2 1auto-populated from documented surgical [id number] bladder -- Dr. Strickland in [facility] -- Dr. Godfrey left knee-- Dr. Soliz Social History Social History Type Response Smoking Status Never smoker Assessment and Plan No data available for this section
--- OUTSIDE RECORDS SUMMARY | 2017-03-13 13:50 | External Medical Summary | Referral Summary ---
:1930 Author Organization [facility] Address [address] [place] [address] [place] [address] Care Team Providers Name Role Phone Gaby Astorga Michelle Primary Care Physician Encounter VC Date(s): 09/30/14 - 09/30/14 [facility] [address] [place] [address] [place] [phone] [place] Discharge Diagnosis: OTHER [...] Daily, # 30 tabs, 6 Refill(s), Pharmacy: [facility], 1 tabs Oral Daily,x30 days Start Date: [...] weeks ago 805.2 / 733.13 Fax to [facility] [phone], See Instructions, # 1 Each, 0 Refill(s), Supply Start Date: 12/15/14 Status: Ordereddocusate sodium 50 mg oral capsule 2 caps, Oral, Bedtime (once a day), PRN Start Date: 07/24/14 Status: Orderedmetoprolol succinate 25 mg oral tablet, extended release 25 mg 1 tabs, Oral, Daily, # 30 tabs, 5 Refill(s), Pharmacy: [facility]28 Start Date: 11/20/14 Status: OrderedMiacalcin Nasal 200 intl units/inh nasal spray 1 sprays, Nasal, Daily, alternate nostrils, # 1 Each, 3 Refill(s), Pharmacy: [facility]28,1 sprays Nasal Daily,x30 days,Instr:alternate nostrils [...] Daily, # 30 tabs, 6 Refill(s), Pharmacy: [facility], 1 tabs Oral Daily,x30 days [...] - gall bladder2 1auto-populated from documented surgical [id number] bladder -- Dr. Strickland in [facility] -- Dr. Godfrey left knee-- Dr. Soliz Social History Social History Type Response Smoking Status Never smoker Assessment and Plan No data available for this section
--- OUTSIDE RECORDS SUMMARY | 2017-03-13 13:50 | External Medical Summary | Referral Summary ---
:1930 Author Organization [facility] Address [address] [place] [address] [place] [address] Care Team Providers Name Role Phone Gaby Astorga Michelle Primary Care Physician Encounter VC Date(s): 09/02/14 - 09/02/14 [facility] [address] [place] [address] [place] [phone] [place] Discharge Diagnosis: OTHER [...] Daily, # 30 tabs, 6 Refill(s), Pharmacy: [facility], 1 tabs Oral Daily,x30 days [...] ago 805.2 / 733.13 Fax to [facility] [phone], See Instructions, # 1 Each, 0 Refill(s), Supply Start Date: 12/15/14 Status: Ordereddocusate sodium 50 mg oral capsule 2 caps, Oral, Bedtime (once a day), PRN Start Date: 07/24/14 Status: Orderedmetoprolol succinate 25 mg oral tablet, extended release 25 mg 1 tabs, Oral, Daily, # 30 tabs, 5 Refill(s), Pharmacy: [facility] Start Date: 11/20/14 Status: OrderedMiacalcin Nasal 200 intl units/inh nasal spray 1 sprays, Nasal, Daily, alternate nostrils, # 1 Each, 3 Refill(s), Pharmacy: [facility],1 sprays Nasal Daily,x30 days,Instr:alternate nostrils [...] Daily, # 30 tabs, 6 Refill(s), Pharmacy: [facility], 1 tabs Oral Daily,x30 days [...] - gall bladder2 1auto-populated from documented surgical [id number] bladder -- Dr. Strickland in [facility] -- Dr. Godfrey left knee-- Dr. Soliz Social History Social History Type Response Smoking Status Never smoker Assessment and Plan No data available for this section
--- OUTSIDE RECORDS SUMMARY | 2017-03-13 13:50 | External Medical Summary | Referral Summary ---
:1930 Author Organization [facility] Address [address] [place] [address] [place] [address] Care Team Providers Name Role Phone Gaby Astorga Michelle Primary Care Physician Encounter VC Date(s): 09/02/14 - 09/02/14 [facility] [address] [place] [address] [place] [phone] [place] Discharge Diagnosis: OTHER [...] Daily, # 30 tabs, 6 Refill(s), Pharmacy: [facility], 1 tabs Oral Daily,x30 days [...] ago 805.2 / 733.[address] [facility] [phone], See Instructions, # 1 Each, 0 Refill(s), Supply Start Date: 12/15/14 Status: Ordereddocusate sodium 50 mg oral capsule 2 caps, Oral, Bedtime (once a day), PRN Start Date: 07/24/14 Status: Orderedmetoprolol succinate 25 mg oral tablet, extended release 25 mg 1 tabs, Oral, Daily, # 30 tabs, 5 Refill(s), Pharmacy: [facility] Start Date: 11/20/14 Status: OrderedMiacalcin Nasal 200 intl units/inh nasal spray 1 sprays, Nasal, Daily, alternate nostrils, # 1 Each, 3 Refill(s), Pharmacy: [facility],1 sprays Nasal Daily,x30 days,Instr:alternate nostrils [...] Daily, # 30 tabs, 6 Refill(s), Pharmacy: [facility], 1 tabs Oral Daily,x30 days [...] - gall bladder2 1auto-populated from documented surgical [id number] bladder -- Dr. Strickland in [facility] -- Dr. Godfrey left knee-- Dr. Soliz Social History Social History Type Response Smoking Status Never smoker Assessment and Plan No data available for this section
--- OUTSIDE RECORDS SUMMARY | 2017-03-13 13:50 | External Medical Summary | Referral Summary ---
:1930 Author Organization [facility] Address [address] [place] [address] Care Team Providers Name Role Phone Gaby Astorga Primary Care Physician Encounter VC Date(s): 12/16/14 - 12/16/14 [facility] [address] [place] [address]- [phone] Discharge Diagnosis: Closed wedge compression fracture of T11 vertebra Discharge Diagnosis: Thoracic back pain Discharge Disposition: 01-Home or Self Care Attending Physician: Clarisse Rangel Admitting Physician: Clarisse Rangel Referring Physician: Hayden Siddiqi MD Vital Signs Most recent to oldest [Reference Range]: 1 Blood Pressure [90-140/60-90 mmHg] 128/68 mmHg (12/16/14 1:37 PM) Problem List Condition Effective Dates Status [...] Daily, # 30 tabs, 6 Refill(s), Pharmacy: [facility], 1 tabs Oral Daily,x30 days [...] / 733.13 Fax to [facility] [phone], See Instructions, # 1 Each, 0 Refill(s), Supply Start Date: 12/15/14 Status: Ordereddocusate sodium 50 mg oral capsule 2 caps, Oral, Bedtime (once a day), PRN Start Date: 07/24/14 Status: Orderedmetoprolol succinate 25 mg oral tablet, extended release 25 mg 1 tabs, Oral, Daily, # 30 tabs, 5 Refill(s), Pharmacy: [facility] Start Date: 11/20/14 Status: OrderedMiacalcin Nasal 200 intl units/inh nasal spray 1 sprays, Nasal, Daily, alternate nostrils, # 1 Each, 3 Refill(s), Pharmacy: [facility],1 sprays Nasal Daily,x30 days,Instr:alternate [...] Daily, # 30 tabs, 6 Refill(s), Pharmacy: [facility], 1 tabs Oral Daily,x30 days [...] - gall bladder2 1auto-populated from documented surgical [id number] bladder -- Dr. Strickland in [facility] -- Dr. Godfrey left knee-- Dr. Soliz Social History Social History Type Response Smoking Status Never smoker Assessment and Plan Extracted from: Title: Office Visit Note Author: Clarisse Rangel Date: 12/16/14 Assessment/Plan Closed wedge compression fracture of T11 vertebra Thoracic back pain Ordered: MRI Spine Thoracic w/o Contrast XR Spine Thoracic 2 Views Orders: HYDROcodone-acetaminophen, See Instructions, as needed for pain, Half tab Oral q6hr, as needed for pain, # 30 tabs, 0 Refill(s) lidocaine topical, 1 patches, Topical, Daily, remove patches after 12 hours, # 30 patches, 0 Refill(s) Dr. Gandhi had discussed the patient and her friend who accompaniedher to her appointment he feels her symptoms are likely results of acute T11 compression fracture. This was noted on a lumbar spine x-ray. Dr. Gandhi needs further investigation recommends a thoracic x-ray to evaluate for any other possible thoracic compression fractures. He also needs a thoracic MRI without contrast as he felt timothy hall may be a candidate for kyphoplasty but needs to see if there's any bone fragments migrated posteriorly to see if she would be a candidate for this. He is therefore recommending a thoracic MRI withou t contrast. He felt she is not a very good candidatefor a brace because it would have to be a thoracolumbar corset with her scoliosis shelikely would not tolerate that well. He did recommend estelle e Lidoderm patches and as well as some pain medications narcotics. He recommended somebody stay with the patient. Her friend who is with her states that she would stay with the patient orhave the patient live with her for a few days to help monitor. Dr. Gandhi recommended Aline 5 mg half a tablet each 6 hours as needed. She was warned of potential side effects including constipation sedation r espiratory depression narcotics can be habit forming. She will be cautious to keep her bowels moving regular. She will follow-up with the results of her studies. Based on her results and persistin g symptoms he may consider her a candidate for a kyphoplasty vertebral augmentation. This was discussed with her in some detail today. Discuss it further the time of her next follow-up. Also if he r insurance will not cover lidoderm patch may consider changing to EMLA cream. She and her friend voiced understanding and agrees to the above plans. Physical exam findings history present illness r ecommendations are performed with an agreement with Dr. Cyr findings.
--- OUTSIDE RECORDS SUMMARY | 2017-03-13 13:51 | External Medical Summary | Referral Summary ---
:1930 Author Organization [facility] [place] [address] Care Team Providers Name Role Phone Gauri Gaby Michelle Primary Care Physician Encounter VC Date(s): 10/28/14 - 10/28/14 [facility] [place] [phone] [place] Discharge Disposition: [...] Active lumbar(Confirmed) Depression(Confirmed) Active Gastroenteritis - hosp [facility](Confirmed) 04/2011 Active GERD (gastroesophageal reflux Active disease)(Confirmed) Urinary frequency(Confirmed) Active Lumbago(Confirmed) Active Lumbar spondylosis(Confirmed) Active OA (osteoarthritis)(Confirmed) Active Parkinson's disease - Dr. Andrew Mata(Confirmed) Vitamin D deficiency(Confirmed) Active Allergies, Adverse Reactions, Alerts Substance Reaction Severity Status Biaxin Active clarithromycin rash Active Medications amLODIPine 5 mg oral tablet 5 mg 1 tabs, Oral, Daily, # 30 tabs, 6 Refill(s), Pharmacy: [facility], 1 tabs Oral Daily,x30 days Start Date: [...] T11 fall 2 weeks ago 805.2 / 314.97 Fax to [facility] [phone], See Instructions, # 1 Each, 0 Refill(s), Supply Start Date: 12/15/14 Status: Ordereddocusate sodium 50 mg oral capsule 2 caps, Oral, Bedtime (once a day), PRN Start Date: 07/24/14 Status: Orderedmetoprolol succinate 25 mg oral tablet, extended release 25 mg 1 tabs, Oral, Daily, # 30 tabs, 5 Refill(s), Pharmacy: [facility] Start Date: 11/20/14 Status: OrderedMiacalcin Nasal 200 intl units/inh nasal spray 1 sprays, Nasal, Daily, alternate nostrils, # 1 Each, 3 Refill(s), Pharmacy: [facility],1 sprays Nasal Daily,x30 days,Instr:alternate [...] Daily, # 30 tabs, 6 Refill(s), Pharmacy: [facility], 1 tabs Oral Daily,x30 [...] [0.80-3.30 10*3] 1.97 10*3 (10/28/14 10:13 AM) [place] [facility] [0.30-1.00 10*3] 0.74 10*3 (10/28/14 10:13 [...] - gall bladder2 1auto-populated from documented surgical [id number] bladder -- Dr. Strickland in [facility] -- Dr. Godfrey left knee-- Dr. Soliz [...] Daily, # 30 tabs, 6 Refill(s), Pharmacy: [facility], 1 tabs Oral Daily,x30 days
--- OUTSIDE RECORDS SUMMARY | 2017-03-13 13:53 | External Medical Summary | Referral Summary ---
:1930 Author Organization [facility] Address [address] [place] [address] [place] [address] Care Team Providers Name Role Phone Gaby Astorga Michelle Primary Care Physician Encounter VC Date(s): 09/30/14 - 09/30/14 [facility] [address] [place] [address] [place] [phone] [place] Discharge Diagnosis: OTHER [...] Daily, # 30 tabs, 6 Refill(s), Pharmacy: [facility], 1 tabs Oral Daily,x30 days Start Date: [...] weeks ago 805.2 / 733.13 Fax to [facility] [phone], See Instructions, # 1 Each, 0 Refill(s), Supply Start Date: 12/15/14 Status: Ordereddocusate sodium 50 mg oral capsule 2 caps, Oral, Bedtime (once a day), PRN Start Date: 07/24/14 Status: Orderedmetoprolol succinate 25 mg oral tablet, extended release 25 mg 1 tabs, Oral, Daily, # 30 tabs, 5 Refill(s), Pharmacy: [facility] Start Date: 11/20/14 Status: OrderedMiacalcin Nasal 200 intl units/inh nasal spray 1 sprays, Nasal, Daily, alternate nostrils, # 1 Each, 3 Refill(s), Pharmacy: [facility],1 sprays Nasal Daily,x30 days,Instr:alternate nostrils [...] Daily, # 30 tabs, 6 Refill(s), Pharmacy: [facility], 1 tabs Oral Daily,x30 days [...] - gall bladder2 1auto-populated from documented surgical [id number] bladder -- Dr. Strickland in [facility] -- Dr. Godfrey left knee-- Dr. Soliz Social History Social History Type Response Smoking Status Never smoker Assessment and Plan No data available for this section
--- OUTSIDE RECORDS SUMMARY | 2017-03-13 13:53 | External Medical Summary | Referral Summary ---
:1930 Author Organization [facility] Address [address] [place] [address] Care Team Providers Name Role Phone Gaby Astorga Primary Care Physician Encounter VC Date(s): 01/15/15 - 01/15/15 [facility] [address] [place] [address]- [phone] Discharge Diagnosis: DDD (degenerative disc disease), lumbar Discharge Diagnosis: Thoracic compression fracture Discharge Diagnosis: Lumbago Discharge Diagnosis: Lumbar spondylosis Discharge Disposition: 01-Home or Self Care Attending Physician: Reema Mayfield PA-C Admitting Physician: Reema Mayfield PA-C Vital Signs Most recent to oldest [Reference Range]: 1 Blood Pressure [90-140/60-90 mmHg] 158/80 mmHg *HI* (01/15/15 8:51 AM) Problem List Condition Effective Dates Status [...] Daily, # 30 tabs, 6 Refill(s), Pharmacy: [facility], 1 tabs Oral Daily,x30 days Start Date: [...] T11 fall 2 weeks ago 805.2 / 795.74 Fax to [facility] [phone], See Instructions, # 1 Each, 0 Refill(s), Supply Start Date: 12/15/14 Status: Ordereddocusate sodium 50 mg oral capsule 2 caps, Oral, Bedtime (once a day), PRN Start Date: 07/24/14 Status: Orderedmetoprolol succinate 25 mg oral tablet, extended release 25 mg 1 tabs, Oral, Daily, # 30 tabs, 5 Refill(s), Pharmacy: [facility] Start Date: 11/20/14 Status: OrderedMiacalcin Nasal 200 intl units/inh nasal spray 1 sprays, Nasal, Daily, alternate nostrils, # 1 Each, 3 Refill(s), Pharmacy: [facility],1 sprays Nasal Daily,x30 days,Instr:alternate nostrils [...] # 30 tabs, 6 Refill(s), Pharmacy: [facility], 1 tabs Oral Daily,x30 [...] - gall bladder2 1auto-populated from documented surgical [id number] bladder -- Dr. Strickland in [facility] -- Dr. Godfrey left knee-- Dr. Soliz Social History Social History Type Response Smoking Status Never smoker Assessment and Plan Extracted from: Title: Office Visit Note Author: Reema Mayfield PA-C Date: 01/15/15 Assessment/Plan DDD (degenerative disc disease), lumbar Lumbago Lumbar spondylosis Thoracic back pain Thoracic compression fracture Orders: MRI Spine Lumbar w/o Contrast I discussed this patient's plan of care with Dr. Gandhi. I also reviewed the patient's most recentthoracic MRI. According to this MRI the patient has acute T12 compression fracture, with some degenerat gary changes throughout the disc spaces and facet joints.She recently had a T12 kyphoplasty, with relief. She continues to have pain in the lumbar area. Her prior lumbarx-rays showsignifican t degenerative facet arthropathy and mild disc space narrowing in the lumbar spine. She also has a grade 1 degenerative spondylolisthesis at L3 4 and L4 5. We will obtain a new thoracic x-ray today, f or evaluation of her recent kyphoplasty. We will also obtaina lumbar MRI without contrastfor evaluation of her other complaints.She will follow-up here with the results of the above. The patient voiced understanding and agrees to the above plans. The above was in discussion with Dr. Gandhi.
--- OUTSIDE RECORDS SUMMARY | 2017-03-13 13:53 | External Medical Summary | Continuity of Care Document ---
:1930 Author Organization [facility] Allergies Active Description Code Type Severity Reaction Onset Reported/ Identified Relationship Clinical to Patient Status Yes BIAXIN 92326 Drug N/A N/A 59157 Aller 0 gy Medications Medication Packaging Start Date Stop Date Route Dosage Sig 11/21/2012 ORAL [id number] twice daily 07/30/2014 Oral [id number] 12/03/2014 ORAL [id number] daily 02/08/2015 Oral [id number] Problems Procedures Results Encounters ACCT No. Visit Discharge Status Pt. Type Provider Facility Loc./Unit Complaint Date/Time [id number] 12/25/2016 12/25/2016 DIS Outpatient [id number] 09:29:59 09:29:59 9 [id number] 12/22/2016 12/22/2016 CLS Outpatient [id number] 12:04:36 23:59:59 6 [id number] 12/22/2016 12/22/2016 CLS Outpatient [id number] 11:39:29 23:59:59 9 [id number] 12/22/2016 12/22/2016 CLS Outpatient [id number] 11:08:53 23:59:59 3 [id number] 12/22/2016 12/22/2016 CLS Outpatient [id number] 10:57:48 23:59:59 8 [id number] 12/22/2016 12/22/2016 DIS Outpatient [id number] 14:10:54 14:10:54 4 [id number] 12/22/2016 12/22/2016 DIS Outpatient [id number] 14:09:35 14:09:36 5 [id number] 12/22/2016 12/22/2016 DIS Outpatient [id number] 12:14:28 12:14:28 8 [id number] 12/19/2016 12/19/2016 DIS Outpatient [id number] 09:48:21 09:48:21 1 [id number] 12/14/2016 12/14/2016 DIS Outpatient [id number] 16:50:15 16:50:15 5 [id number] 12/14/2016 12/14/2016 DIS Outpatient [id number] 16:17:27 16:17:27 7 [id number] 06/15/2016 06/15/2016 CLS Outpatient [id number] 07:27:21 23:59:59 1 [id number] 06/01/2016 06/01/2016 DIS Outpatient [id number] 15:14:32 15:14:32 2 [id number] 03/31/2016 03/31/2016 CLS Outpatient [id number] 10:17:00 23:59:59 0 [id number] 03/30/2016 03/30/2016 CLS Outpatient [id number] 08:48:38 23:59:59 8 [id number] 03/30/2016 03/30/2016 DIS Outpatient [id number] 16:21:37 16:21:37 7 [id number] 03/30/2016 03/30/2016 DIS Outpatient [id number] 09:53:06 09:53:06 6 [id number] 03/30/2016 03/30/2016 DIS Outpatient [id number] 08:47:22 08:47:22 2 [id number] 03/30/2016 03/30/2016 DIS Outpatient [id number] 08:47:04 08:47:05 4 [id number] 03/30/2016 03/30/2016 DIS Outpatient [id number] 08:44:45 08:44:45 5 [id number] 03/27/2016 03/27/2016 DIS Outpatient [id number] 10:06:19 10:06:20 9 [id number] 12/20/2015 12/20/2015 ACT Outpatient [id number] 21:08:19 21:08:19 9 [id number] 12/20/2015 12/20/2015 ACT Outpatient [id number] 21:04:13 21:04:13 3 [id number] 12/20/2015 12/20/2015 ACT Outpatient [id number] 21:04:10 21:04:10 0 [id number] 12/20/2015 12/20/2015 ACT Outpatient [id number] 21:04:03 21:04:03 3 [id number] 12/20/2015 12/20/2015 ACT Outpatient [id number] 21:03:33 21:03:33 3 [id number] 12/20/2015 12/20/2015 ACT Outpatient [id number] 21:03:28 21:03:28 8 [id number] 12/20/2015 12/20/2015 ACT Outpatient [id number] 21:03:27 21:03:27 7 [id number] 12/20/2015 12/20/2015 ACT Outpatient [id number] 21:03:23 21:03:23 3 [id number] 12/20/2015 12/20/2015 ACT Outpatient [id number] 20:57:00 20:57:00 0 [id number] 12/20/2015 12/20/2015 ACT Outpatient [id number] 20:38:12 20:38:12 2 [id number] 12/20/2015 12/20/2015 ACT Outpatient [id number] 20:38:11 20:38:11 1 [id number] 12/20/2015 12/20/2015 ACT Outpatient [id number] 20:38:10 20:38:10 0 [id number] 12/20/2015 12/20/2015 ACT Outpatient [id number] 18:41:17 18:41:17 7 [id number] 12/20/2015 12/20/2015 ACT Outpatient [id number] 16:36:48 16:36:48 8 [id number] 12/20/2015 12/20/2015 ACT Outpatient [id number] 16:36:40 16:36:40 0 [id number] 12/20/2015 12/20/2015 ACT Outpatient [id number] 16:36:39 16:36:39 9 [id number] 12/20/2015 12/20/2015 ACT Outpatient [id number] 16:28:01 16:28:01 1 [id number] 12/04/2014 12/04/2014 DIS Outpatient [id number] 11:34:00 11:34:03 0 [id number] 12/04/2014 12/04/2014 DIS Outpatient [id number] 10:22:15 10:22:15 5 [id number] 12/04/2014 12/04/2014 DIS Outpatient [id number] 10:22:14 10:22:14 4 [id number] 12/04/2014 12/04/2014 DIS Outpatient [id number] 10:22:13 10:22:13 3 [id number] 12/04/2014 12/04/2014 DIS Outpatient [id number] 10:22:12 10:22:12 2 [id number] 12/04/2014 12/04/2014 DIS Outpatient [id number] 10:22:11 10:22:11 1 [id number] 12/03/2014 12/03/2014 CLS Outpatient [id number] 15:29:07 23:59:59 7 [id number] 12/03/2014 12/03/2014 CLS Outpatient [id number] 15:28:32 23:59:59 2 [id number] 12/03/2014 12/03/2014 CLS Outpatient [id number] 14:03:24 23:59:59 4 [id number] 12/03/2014 12/03/2014 DIS Outpatient [id number] 15:19:37 15:19:38 7 [id number] 12/03/2014 12/03/2014 DIS Outpatient [id number] 14:33:10 14:33:10 0 [id number] 12/03/2014 12/03/2014 DIS Outpatient [id number] 14:03:26 14:03:27 6 [id number] 12/03/2014 12/03/2014 DIS Outpatient [id number] 14:03:25 14:03:25 5 [id number] 12/03/2014 12/03/2014 DIS Outpatient [id number] 14:03:22 14:03:22 2 [id number] 12/03/2014 12/03/2014 DIS Outpatient [id number] 14:02:26 14:02:27 6 [id number] 12/01/2014 12/01/2014 CLS Outpatient [id number] 09:37:01 23:59:59 1 [id number] 09/18/2014 09/18/2014 DIS Outpatient [id number] 16:17:10 16:17:10 0 [id number] 07/25/2014 07/25/2014 CLS Outpatient [id number] 13:43:30 23:59:59 0 [id number] 07/25/2014 07/25/2014 DIS Outpatient [id number] 13:43:21 13:43:23 1 [id number] 06/05/2014 06/05/2014 CLS Outpatient [id number] 11:45:16 23:59:59 6 [id number] 06/05/2014 06/05/2014 CLS Outpatient [id number] 11:44:53 23:59:59 3 [id number] 06/05/2014 06/05/2014 DIS Outpatient [id number] 11:45:15 11:45:15 5 [id number] 06/05/2014 06/05/2014 DIS Outpatient [id number] 11:45:14 11:45:14 4 [id number] 06/05/2014 06/05/2014 DIS Outpatient [id number] 11:44:51 11:44:52 1 [id number] 06/04/2014 06/04/2014 CLS Outpatient [id number] 16:43:12 23:59:59 2 [id number] 06/04/2014 06/04/2014 CLS Outpatient [id number] 15:41:23 23:59:59 3 [id number] 06/04/2014 06/04/2014 CLS Outpatient [id number] 15:35:40 23:59:59 0 [id number] 06/04/2014 06/04/2014 CLS Outpatient [id number] 14:30:32 23:59:59 2 [id number] 06/04/2014 06/04/2014 CLS Outpatient [id number] 14:30:31 23:59:59 1 [id number] 06/04/2014 06/04/2014 CLS Outpatient [id number] 14:30:27 23:59:59 7 [id number] 06/04/2014 06/04/2014 CLS Outpatient [id number] 14:30:26 23:59:59 6 [id number] 06/04/2014 06/04/2014 DIS Outpatient [id number] 15:41:25 15:41:25 5 [id number] 06/04/2014 06/04/2014 DIS Outpatient [id number] 15:41:24 15:41:24 4 [id number] 06/04/2014 06/04/2014 DIS Outpatient [id number] 15:18:05 15:18:05 5 [id number] 06/04/2014 06/04/2014 DIS Outpatient [id number] 15:17:41 15:17:42 1 [id number] 06/04/2014 06/04/2014 DIS Outpatient [id number] 14:59:40 14:59:40 0 [id number] 06/04/2014 06/04/2014 DIS Outpatient [id number] 14:54:00 14:54:00 0 [id number] 06/04/2014 06/04/2014 DIS Outpatient [id number] 14:30:03 14:30:03 3 [id number] 06/04/2014 06/04/2014 DIS Outpatient [id number] 14:30:02 14:30:02 2 [id number] 06/04/2014 06/04/2014 DIS Outpatient [id number] 14:30:01 14:30:01 1 [id number] 12/22/2016 Document [id number] 12:25:30 Registrati 0 on [id number] 12/22/2016 Document [id number] 12:21:57 Registrati 7 on [id number] 12/22/2016 Document [id number] 12:21:56 Registrati 6 on [id number] 12/22/2016 Document [id number] 11:06:00 Registrati on [id number] 03/30/2016 Document [id number] 08:55:00 Registrati on [id number] 12/20/2015 Document [id number] 16:22:00 Registrati on [id number] 02/09/2015 Document [id number] 07:52:09 Registrati on [id number] 02/09/2015 Document [id number] 07:51:29 Registrati on [id number] 02/09/2015 Document [id number] 07:51:20 Registrati on [id number] 02/09/2015 Document [id number] 07:51:12 Registrati on [id number] 02/09/2015 Document [id number] 07:51:02 Registrati on [id number] 02/09/2015 Document [id number] 07:50:10 Registrati on [id number] 02/09/2015 Document [id number] 07:49:55 Registrati on [id number] 02/09/2015 Document [id number] 07:49:48 Registrati on [id number] 12/04/2014 Document [id number] 10:22:20 Registrati 0 on [id number] 12/04/2014 Document [id number] 07:56:47 Registrati 7 on [id number] 12/03/2014 Document [id number] 17:37:21 Registrati 1 on [id number] 12/03/2014 Document [id number] 14:46:42 Registrati on [id number] 12/03/2014 Document [id number] 14:46:39 Registrati on [id number] 12/03/2014 Document [id number] 14:46:32 Registrati on [id number] 12/03/2014 Document [id number] 14:40:00 Registrati on [id number] 06/05/2014 Document [id number] 10:09:01 Registrati 1 on [id number] 06/04/2014 Document [id number] 16:45:10 Registrati 0 on [id number] 06/04/2014 Document [id number] 14:55:00 Registrati on
--- NOTE | 2017-03-13 15:18 | History & Physical Report ---
History of Present Illness Date: 03/13/17 Chief complaint: dyspnea, CHF exacerbation HPI: Rossy Manuel is a very pleasant, soft spoken female resident at [facility][note 3] who presented to [facility] emergency room today, 03/13/17, for evaluation of increased difficulty breathing. She reports that over the past 4- 5 days she has had increased difficulty breathing with dry cough and increased lower extremity swelling. She also reports increased difficulty breathing when laying flat causing her to become more anxious and resulting in her sitting up, gasping for air. She denies any recent fevers, chills, chest pain, abdominal pain, nausea, vomiting or dysuria. She does admit to increased difficulty swallowing her food but denies any recent coughing or choking on her food. She has a history of Parkinson's disease for which she follows with Dr. Shirlene Mata. Due to her increased difficulty breathing, she presented to the ED for evaluation. Upon arrival to the ED, vital signs revealed hypertension at 180/79 , tachypnea with respiratory rate of 24 and pulse ox of 98% on room air. She was noted to be afebrile with no treatment. Labs were obtained and revealed mild anemia (Hgb 10.7 and elevated BUN and SCr at 33 and 1.3. Review of prior medical records reveals history of chronic kidney disease stage III with average GFR in the 30's and base line creatine around 1.2-1.3. BNP was elevated at 7700. CXR revealed mild congestive failure but could not exclude pneumonia or aspiration in lung bases. While in the ED, she received Lasix 20mg IV x [address] Jama was contacted and she was admitted into observation status for close respiratory monitoring and continued diuresis. Her length of stay is not expected to exceed more than 2 over nights. Review of Systems All systems PM: 10-point ROS was reviewed, no additional remarkable complaints except - Constitutional Constitutional: Present: weakness. Absent: anorexia, fatigue, fever(s) - EENMT Eyes: Absent: diplopia, pain, photophobia Ears: Absent: ear pain Balance: Absent: falling to one side Nose: Absent: nosebleeds Mouth/Throat: Present: changes in swallowing, dry mouth. Absent: sore throat, drooling - Cardiovascular Cardiovascular: Present: dyspnea on exertion, orthopnea, edema, heart murmur. Absent: chest pain, palpitations, syncope Rhythm: Present: regular rhythm Vascular: Present: pedal edema. Absent: unilateral swelling - Respiratory Respiratory: Present: cough, dyspnea, dyspnea on exertion. Absent: hemoptysis, wheezing, pain on inspiration, chest congestion, excessive phlegm production - Gastrointestinal Gastrointestinal: Present: constipation, dysphagia. Absent: abdominal pain, change in bowel habits, diarrhea, melena, nausea, vomiting - Genitourinary Genitourinary: Absent: dysuria, flank pain, hematuria Menstruation: post hysterectomy - Musculoskeletal Musculoskeletal: Present: back pain, muscle weakness. Absent: neck pain - Integumentary/Breasts Integumentary: Absent: rash, jaundice - Neurological Neurological: Present: weakness. 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 Hypertension. Constipation. Anxiety and depression. CHF, diastolic. GERD. Chronic kidney disease, stage III. Osteoarthritis. Spinal stenosis L3-L4 with right radiculopathy. History of chicken pox and measles as a child. Surgical History: Hypertectomy with bilateral oophorectomy. Cholecystecomy. Left knee arthroscopy - 04/01/1999. Medial compartment knee replacement of left knee - 06/20/2001, Dr. Soliz. Left total knee replacement - 07/18/2001. Left total knee revision - 07/20/2003, Dr. Soliz. Total joint revision of left knee - 11/25/2003, Dr. Suárez. Lumbar epidural steroid injection - 10/04/2010, Dr. Menjivar. Lumbar epidural steroid injection, 04/05/2011, Dr. Menjivar. Carotid doppler - 08/27/15 (no significant stenosis). Cataract removal - . Excision urethral caruncle/mass with meatoplasty, cystoscopy and urethral dilation - 05/19/2008. Echocardiogram - 09/20/11 (EF 55-65%, mild dysfunction, mild pulmonary hypertension with arterial pressure 40mmHg due 5to partially collapsing IVC. Family History Updates: Father at age 63 of [place]. Mother at age 91 due to old age. Fiver brothers who are . Brother #1 who at age 74, alcoholosim and of a cerebral hemorrhage. Brother #2 who at age 88 of old age. Brother #3 who at age 11 of shock after wringer injury. Brother #4 who at age 90 of heart problems and renal failure. Sister #1 at age 68 of breast cancer. Sister #2 at age 23 of breast cancer. Sister #3 at age 93 of heart problems. Sister #4 at age 85. Nephew at age 57 of Eve Gehrig disease. - Social History Smoking status: Never smoker Substance use type: does not use Alcohol intake frequency: does not drink Housing: assisted living facility Household members: none Current occupational status: retired Does patient use chewing tobacco?: No Current residence: Assisted Living ([facility]) Social history: PCP - Dr. Rust. Cardio - Dr. Carey. Neuro - Dr. Shirlene Mata. Patient reports that she is . She has 2 living daughters which she reports are alive and healthy. 1 daughter is as of August 2016 at the age of 61 due to breast cancer. She also has a living son who she states has problems with his back. Medications Home Medications Medication Instructions Recorded Confirmed Type Mirtazapine [Remeron] 15 mg PO HS #0 04/05/11 03/13/17 History Omeprazole 20 mg PO DAILY #0 12/23/12 03/13/17 History Sertraline HCl 25 mg PO HS #30 08/17/15 03/13/17 History Acetaminophen [Acetaminophen ER] 650 mg PO Q6H PRN 03/13/17 03/13/17 History Aspirin Chewable [ASA] 81 mg PO Q48H 03/13/17 03/13/17 History Biotin 300 mcg PO Q48H 03/13/17 03/13/17 History Carbidopa/Levodopa 1 tab PO TID 03/13/17 03/13/17 History [Carbidopa-Levodopa 25-250 Tab] Cholecalciferol [Vit. D-3] 1,000 unit PO DAILY 03/13/17 03/13/17 History Docusate Sodium [Colace] 100 mg PO BID 03/13/17 03/13/17 History Melatonin 5 mg PO HS PRN 03/13/17 03/13/17 History Metoprolol Succinate 12.5 mg PO DAILY 03/13/17 03/13/17 History Multivitamin [One Daily 1 each PO DAILY 03/13/17 03/13/17 History Multivitamin] Oxybutynin Chloride 5 mg PO HS PRN 03/13/17 03/13/17 History Propylene Glycol [Lubricant Eye 1 drop OP DAILY 03/13/17 03/13/17 History Drops] Allergies Allergy/AdvReac Type Severity Reaction Status Date / Time clarithromycin AdvReac Mild STOMACH Verified 03/13/17 15:55 PAIN Exam Vital Signs: Temperature 97 F 03/13/17 15:00 Pulse Rate 88 03/13/17 15:00 Respiratory Rate 16 03/13/17 15:00 Blood Pressure 170/92 H 03/13/17 15:00 Pulse Oximetry 98 03/13/17 15:00 Height/Weight/BMI: Weight 104 lb 11.513 oz Comments: Patient is seen shortly after her arrival to her room. Nursing and good friend are present on exam. She is alert and orientated x 3 and in no apparent distress. - Constitutional Present: no acute distress, well nourished, well developed, thin, cooperative - Routine HEENT Exam Head: Present: normocephalic, atraumatic Eye: Present: PERRL. Absent: conjunctival icterus ENT: Present: mucous membranes dry, dentition normal - Routine Neck Exam Present: supple, full ROM, trachea midline - Routine Chest/Breast/Axilla Exam Chest wall: Absent: tenderness, pacemaker - Routine Respiratory Exam Present: decreased breath sounds, crackles (bibasilar). Absent: rhonchi, stridor, wheezes - Routine Cardiovascular Exam Present: RRR, S1, S2 - Routine Abdominal Exam Present: soft, normoactive bowel sounds, non distended, non tender - Routine Extremities Exam Present: edema (1-2+ pedal edema, L>R.), non tender, full ROM, pulses intact. Absent: cyanosis, clubbing, calf tenderness - Routine Back/Spine/Pelvis Exam Back/Spine: Present: full ROM. Absent: vertebral tenderness - Routine Skin Exam Present: intact, dry, warm. Absent: jaundice Comments: afebrile. - Routine Neurological Exam Present: alert, oriented X3, moving all extremities, hearing grossly intact, normal speech (soft spoken) - Routine Psychiatric Exam Present: normal affect, cooperative, good insight, good judgment, anxious - Additional findings Additional findings: Evita Lungs: Shallow breathing. No crackles or wheezes. CV: regular EXT: trace edema , SCD in place. MSE: awake alert appropriate Results - Labs CBC & Chem 7: 03/13/17 12:42 03/13/17 12:42 - Imaging and Cardiology Chest x-ray Status: image reviewed by me Additional comments: Date of Exam: 03/13/17 Type of Exam(s): XR chest 2V Impression: Mild congestive failure. Mild pneumonia or aspiration cannot be entirely excluded in the lung bases. Assessment and Plan (1) Congestive heart failure Problem details: acute on chronic exacerbation. Current visit: Yes Status: Acute (2) Anemia Current visit: Yes Status: Acute Assessment and Plan: Assessment: Acute on chronic diastolic CHF with exacerbation. Anemia, present on admission, unspecified. Parkinson's disease with rigidity and bradykinesia on right, 2000. Hypertension. Constipation. Anxiety and depression. CHF, diastolic. GERD. Chronic kidney disease, stage III. Osteoarthritis. Plan - 03/13/17 (Admission). Admit to observation status under the care of Dr. Jama. 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 Patient was given Lasix 20mg IV x 1 dose in ED. Early Childhood Coordinator is Dr. Carey. Will obtain echocardiogram for further evaluation. Medication list reviewed. Will consult Dr. Carey for continuity of care and recommendations for treatment of CHF. Appreciate his time and expertise. Will need to monitor renal function closely given CKD stage III. Review of prior medical records indicates baseline SCr ~1.2-1.3. Monitor closely on telemetry. Oxygen as needed to maintain SAO2 >90%. She does not use oxygen at home and is not currently on oxygen. She reports her dry weight is around 107 lbs, but is currently only at 104 lbs. She reports that her appetite is good and denies any known or intentional weight loss. She is noted to be Remeron. Will consult dietary for diet recommendations. Recent difficulty with swallowing per patient. Will consult speech therapy for further evaluation and recommendations. Will start soft diet with chopped meats until patient is seen by speech. CXR on admission revealed congestive failure but could not exclude pneumonia or aspiration. Patient has been afebrile without treatment and denies productive cough. No leukocytosis. Will hold off on antimicrobial treatment at this time and continue to monitor closely. Continue home medications. Blood pressure elevated on admission at 180/79. Will need to monitor closely. Ativan as needed for anxiety. Encourage incentive spirometry and SCDs for DVT prophylaxis. Appreciate the opportunity to participate in Mrs. Manuel' care. Upon discharge , her care will be returned to Dr. Rust. Evita Have independently & interviewed and examined pt. Chart reviewed. Case discussed with ED provider & my PA. Care plan developed with my supervision; agree with above. Presents to ED with increasing SOA. Worsening over the past 4 days. Not feeling she is getting her air in. More SOA if lying flat. Increased edema to ankles. No cough or congestion. Denies pain with breathing. Did feel heart pounding this am. Some increased difficulty swallowing-feels foods want to catch. Reports acid reflux at times. Feels more tired and weak in general. DVT Prophylaxis: SCD's GI Prophylaxis: other (Prilosec) Resuscitation Status: Do Not Resuscitate - Time spent with patient Time with patient PN: 70 minutes Hospital Course Summary Disclaimer: The visit summary below is not to be considered part of the above Progress Note. Hospital Course: Assessment: Acute on chronic diastolic CHF with exacerbation. Anemia, present on admission, unspecified. 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 Hypertension. Constipation. Anxiety and depression. CHF, diastolic. GERD. Chronic kidney disease, stage III. Osteoarthritis. Plan - 03/13/17 (Admission). Admit to observation status under the care of Dr. Jama. 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 Patient was given Lasix 20mg IV x 1 dose in ED. Early Childhood Coordinator is Dr. Carey. Will obtain echocardiogram for further evaluation. Medication list reviewed. Will consult Dr. Carey for continuity of care and recommendations for treatment of CHF. Appreciate his time and expertise. Will need to monitor renal function closely given CKD stage III. Review of prior medical records indicates baseline SCr ~1.2-1.3. Monitor closely on telemetry. Oxygen as needed to maintain SAO2 >90%. She does not use oxygen at home and is not currently on oxygen. She reports her dry weight is around 107 lbs, but is currently only at 104 lbs. She reports that her appetite is good and denies any known or intentional weight loss. She is noted to be Remeron. Will consult dietary for diet recommendations. Recent difficulty with swallowing per patient. Will consult speech therapy for further evaluation and recommendations. Will start soft diet with chopped meats until patient is seen by speech. CXR on admission revealed congestive failure but could not exclude pneumonia or aspiration. Patient has been afebrile without treatment and denies productive cough. No leukocytosis. Will hold off on antimicrobial treatment at this time and continue to monitor closely. Continue home medications. Blood pressure elevated on admission at 180/79. Will need to monitor closely. Ativan as needed for anxiety. Encourage incentive spirometry and SCDs for DVT prophylaxis. Appreciate the opportunity to participate in Mrs. Manuel' care. Upon discharge , her care will be returned to Dr. Rust.
[2017-03-13] MEDS ORDERED: MELATONIN 5 MG TABLET PO PRN (16:14)
[2017-03-13] MEDS ORDERED: ONDANSETRON 4 MG/2 ML INJECTION IVP PRN (16:27)
[2017-03-13] MEDS: DOCUSATE SODIUM 100 MG CAPSULE PO SCH (21:35)
[2017-03-13] MEDS: MIRTAZAPINE 15 MG TABLET PO SCH (21:35)
[2017-03-13] MEDS: SERTRALINE 25 MG TABLET PO SCH (21:36)
[2017-03-14] MEDS: OMEPRAZOLE 20 MG CAPSULE PO SCH (05:55)
[2017-03-14] MEDS: SALINE FLUSH 10ml SYRINGE IVF PRN ×2 (05:55→20:34)
[2017-03-14] MEDS: DOCUSATE SODIUM 100 MG CAPSULE PO SCH ×2 (08:56→20:24)
[2017-03-14] MEDS: REFRESH CELLUVISC 1% Eye Drops 0.4ml EACH EYE SCH (08:56)
[2017-03-14] MEDS: MULTI-VITAMIN PLAIN TABLET PO SCH (08:57)
[2017-03-14] MEDS ORDERED: BIOTIN 300 MCG PO SCH (09:00)
[2017-03-14] MEDS ORDERED: ASPIRIN 81 MG CHEWABLE TABLET PO SCH (09:00)
--- NOTE | 2017-03-14 09:05 | Cardiology Consult Note ---
<Marina Garcia - Last Filed: 03/15/17 14:25> History of Present Illness Consult date: 03/13/17 Requesting physician: Behzad Jama Consult reason: congestive heart failure Chief complaint: difficulty breathing History of present illness: Rossy is a 86 year old female who is known to Dr. Carey's practice with a history of diastolic heart failure, aortic valve sclerosis, nonrheumatic mitral valve regurgitation, HTN, Parkinson's and CKD who presented to [facility] on for evaluation of increased difficulty breathing. She reported that over the past 4-5 days she has had increased difficulty breathing with dry cough and increased lower extremity swelling. She also reported orthopnea causing her to become anxious. She does admit to increased difficulty swallowing her food but denies any recent coughing or choking on her food. CXR revealed mild congestive failure but could not exclude pneumonia or aspiration in lung bases. While in the ED, she received Lasix 20mg IV x [address] Jama was contacted and she was admitted into observation status for close respiratory monitoring and continued diuresis. Dr Carey was consulted for CHF exacerbation. She denies any recent fevers, chills, chest pain, abdominal pain, nausea, vomiting or dysuria. Review of Systems - Constitutional Constitutional: Absent: chills, fatigue, fever(s) - EENMT Eyes: Absent: change in vision Balance: Absent: vertigo Mouth/Throat: Absent: sore throat - Cardiovascular Cardiovascular: Present: dyspnea on exertion, orthopnea, edema, heart murmur. Absent: chest pain, palpitations, syncope - Respiratory Respiratory: Present: dyspnea. Absent: cough - Gastrointestinal Gastrointestinal: Absent: abdominal pain, constipation, diarrhea, nausea, vomiting - Genitourinary Genitourinary: Absent: dysuria - Integumentary/Breasts Integumentary: Absent: rash - Neurological Neurological: Absent: dizziness - Endocrine Endocrine: Absent: palpitations PFSH Patient Stated Medical History Parkinson's Disease Yes Hypertension Yes Valvular Heart Disease Yes: aortic valve stenosis Other Cardiology Yes: murmur Gastroesophageal Reflux Yes Disease Other Yes: chronic kidney disease stage 3 Other Musculoskeletal Yes: arthritis Other Infectious Yes: measels as a child Depression Yes Clinic Medical History Congestive heart failure (Acute Medical) acute on chronic exacerbation. Pneumonia (Acute Medical) Anemia (Acute Medical) Surgical History: Hypertectomy with bilateral oophorectomy. Cholecystecomy. Left knee arthroscopy - 04/01/1999. Medial compartment knee replacement of left knee - 06/20/2001, Dr. Soliz. Left total knee replacement - 07/18/2001. Left total knee revision - 07/20/2003, Dr. Soliz. Total joint revision of left knee - 11/25/2003, Dr. Suárez. Lumbar epidural steroid injection - 10/04/2010, Dr. Menjivar. Lumbar epidural steroid injection, 04/05/2011, Dr. Menjivar. Carotid doppler - 08/27/15 (no significant stenosis). Cataract removal - . Excision urethral caruncle/mass with meatoplasty, cystoscopy and urethral dilation - 05/19/2008. Echocardiogram - 09/20/11 (EF 55-65%, mild dysfunction, mild pulmonary hypertension with arterial pressure 40mmHg due 5to partially collapsing IVC. Family History: Father at age 63 of [place]. Mother at age 91 due to old age. Five brothers who are . Brother #1 who at age 74, alcoholosim and of a cerebral hemorrhage. Brother #2 who at age 88 of old age. Brother #3 who at age 11 of shock after wringer injury. Brother #4 who at age 90 of heart problems and renal failure. Sister #1 at age 68 of breast cancer. Sister #2 at age 23 of breast cancer. Sister #3 at age 93 of heart problems. Sister #4 at age 85. Nephew at age 57 of Eve Gehrig disease. - Social History Smoking status: Never smoker Substance use type: does not use Alcohol intake frequency: does not drink Housing: assisted living facility Household members: none Current occupational status: retired Does patient use chewing tobacco?: No Current residence: Assisted Living ([facility]) Medications Home Medications Medication Instructions Recorded Confirmed Type Mirtazapine [Remeron] 15 mg PO HS #0 04/05/11 03/13/17 History Omeprazole 20 mg PO DAILY #0 12/23/12 03/13/17 History Sertraline HCl 25 mg PO HS #30 08/17/15 03/13/17 History Acetaminophen [Acetaminophen ER] 650 mg PO Q6H PRN 03/13/17 03/13/17 History Aspirin Chewable [ASA] 81 mg PO Q48H 03/13/17 03/13/17 History Biotin 300 mcg PO Q48H 03/13/17 03/13/17 History Carbidopa/Levodopa 1 tab PO TID 03/13/17 03/13/17 History [Carbidopa-Levodopa 25-250 Tab] Cholecalciferol [Vit. D-3] 1,000 unit PO DAILY 03/13/17 03/13/17 History Docusate Sodium [Colace] 100 mg PO BID 03/13/17 03/13/17 History Melatonin 5 mg PO HS PRN 03/13/17 03/13/17 History Metoprolol Succinate 12.5 mg PO DAILY 03/13/17 03/13/17 History Multivitamin [One Daily 1 each PO DAILY 03/13/17 03/13/17 History Multivitamin] Oxybutynin Chloride 5 mg PO HS PRN 03/13/17 03/13/17 History Propylene Glycol [Lubricant Eye 1 drop OP DAILY 03/13/17 03/13/17 History Drops] Allergies Allergy/AdvReac Type Severity Reaction Status Date / Time clarithromycin AdvReac Mild STOMACH Verified 03/13/17 15:55 PAIN Exam Vital signs: Temperature 97.8 F 03/14/17 07:47 Pulse Rate 82 03/14/17 07:47 Respiratory Rate 20 03/14/17 07:47 Blood Pressure 162/75 H 03/14/17 07:47 Pulse Oximetry 94 03/14/17 08:05 - Constitutional no acute distress, thin, cooperative - Routine HEENT Exam Head: Present: normocephalic ENT: Present: mucous membranes moist - Routine Neck Exam Absent: JVD, carotid bruit - Routine Chest/Breast/Axilla Exam Chest wall: Absent: tenderness - Routine Respiratory Exam Present: rales (bibasilar rales), diminished air movement. Absent: CTA bilaterally - Routine Cardiovascular Exam Present: RRR, murmur (II/). Absent: JVD - Routine Abdominal Exam Present: soft, normoactive bowel sounds - Routine Extremities Exam Present: no edema - Routine Skin Exam Present: intact, dry, warm - Routine Neurological Exam Present: alert, oriented X3 - Routine Psychiatric Exam Present: normal affect, normal thought process Results 03/14/17 04:49 03/15/17 04:37 Cardiac Enzymes 03/13/17 03/14/17 Range/Units 19:11 04:49 Troponin I < 0.012 < 0.012 (0-0.12) ng/ml CBC 03/14/17 Range/Units 04:49 WBC 5.9 (4.5-11.0) T/MM3 RBC 3.30 L (4.00-5.20) M/MM3 Hgb 9.9 L (12-16) GM/DL Hct 31.8 L (36-46) % Plt Count 223 (130-400) T/MM3 Neut # (Auto) 3.2 (1.8-7.7) T/MM3 Lymph # (Auto) 1.4 (1-4.8) T/MM3 [place] # (Auto) 0.7 (0-0.8) T/MM3 Eos # (Auto) 0.5 (0-0.5) T/MM3 Baso # (Auto) 0.0 (0-0.2) T/MM3 Comprehensive Metabolic Panel 03/14/17 Range/Units 04:49 Sodium 142 (134-144) MEQ/L Potassium 3.7 D (3.6-5) MEQ/L Chloride 106 (98-107) MEQ/L Carbon Dioxide 27 (22-30) MEQ/L BUN 34.0 H (7-17) MG/DL Creatinine 1.4 H D (0.7-1.2) MG/DL Glucose 82 (65-110) MG/DL Calcium 8.8 (8.4-10.2) MG/DL Intake and Output 03/13/17 03/14/17 03/14/17 22:59 06:59 14:59 Intake Total 240 / 240 0 / 0 Balance 240 / 240 0 / 0 Intake: Oral 240 / 240 0 / 0 Other: Urine Appearance Clear Urine Color Yellow # Voids 1 1 # Incontinent Voids 1 # Bowel Movements 1 Weight 104 lb 11.513 oz 103 lb 9.876 oz Patient Weight 03/15/17 06:59 Weight 103 lb 9.876 oz - Imaging and Cardiology Echo: report reviewed Imaging & Cardiology Narrative: Date of Exam: 03/13/17 Ordering Provider: Inga River APRN Type of Exam(s): XR chest 2V Reason for Exam(s): SOA hx CHF INDICATION: SOA hx CHF PROCEDURE: CHEST 2-VIEWS UPRIGHT (PA & LAT) Encounter: Initial COMPARISON: February 24, 2016 FINDINGS: Small bilateral pleural effusions with lower lobe airspace disease. Prominence of the pulmonary vascularity and interstitial markings. No pneumothorax. Heart size and mediastinal contours are stable. Prior cholecystectomy and vertebroplasty procedures. Impression: Mild congestive failure. Mild pneumonia or aspiration cannot be entirely excluded in the lung bases. 03/14/17 09:25 03/15/17 14:25 Date of Exam: 03/14/17 Type of Exam(s): US echo doppler complete DATE OF PROCEDURE March 14, 2017 This is a two-dimensional echo with spectral Doppler, color-flow and M-mode. It was obtained in a patient with congestive heart failure. Left atrial dimension is normal. Left ventricle end-diastolic dimension is normal. Left ventricle wall thickness is normal. Global hypokinesia is present with ejection fraction of about 35%- 40%. Right atrium is normal. Right ventricle is normal. Aortic root dimension is normal. Mitral annulus is calcified. Mitral valve leaflets are sclerotic with [id number] mitral regurgitation. Aortic valve shows fibrocalcific changes. Transaortic velocities are increased with peak velocity of 1.98 m/sec with peak gradient of 15 and mean gradient of 11. Aortic valve area is calculated at 1.3 cm2. Tricuspid valve shows moderate tricuspid regurgitation with moderate pulmonary hypertension with estimated pulmonary artery systolic pressure of 40. Pulmonary valve shows no pulmonary insufficiency. There is no pericardial effusion. IMPRESSION 1. Global hypokinesia with ejection fraction of about 35%-40%. 2. Mitral annulus calcification with mitral sclerosis and [id number] mitral regurgitation. 3. Mild aortic stenosis with a valve area of 1.3 cm2. 4. Moderate tricuspid regurgitation with moderate pulmonary hypertension with estimated pulmonary artery systolic pressure of 44. EKG interpretations - EKG EKG results cardiology: sinus rhythm - Blocks, axis, hypertrophy, ST abn AV and intraventricular conduction: left bundle branch block (fixed/intermittent , complete/incomplete) Assessment and Plan - Assessment and Plan (1) Acute on chronic diastolic (congestive) heart failure Problem details: Diastolic and systolic Status: Acute EF on echo 35-40%, down from 60% 18 months ago - Continue BB, add ARNI - Gentle diuresis with Lasix 20mg po daily - May need further evaluation for CAD cause for decreased EF (2) Aortic valve sclerosis Status: Chronic (3) Nonrheumatic mitral valve insufficiency Status: Chronic (4) Essential (primary) hypertension Status: Chronic Suboptimal control - will add Entresto - Monitor renal function (5) Parkinson's disease Status: Chronic (6) Chronic kidney disease Status: Chronic - Assessment and Plan 03/14/17 Acute on chronic diastolic and systolic CHF: - EF on echo 35-40%, down from 60% 18 months ago - Continue BB, add ARNI - Gentle diuresis with Lasix 20mg po daily - May need further evaluation for CAD cause for decreased EF HTN: Suboptimal control - will add Entresto - Monitor renal function Thank you for allowing us to participate in the care of this patient. Hospital Course Summary Disclaimer: The visit summary below is not to be considered part of the above Progress Note. Hospital Course: Assessment: Acute on chronic diastolic CHF with exacerbation. Anemia, present on admission, unspecified. 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 Hypertension. Constipation. Anxiety and depression. CHF, diastolic. GERD. Chronic kidney disease, stage III. Osteoarthritis. Plan - 03/13/17 (Admission). Admit to observation status under the care of Dr. Jama. 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 Patient was given Lasix 20mg IV x 1 dose in ED. Time Clock Mechanic is Dr. Carey. Will obtain echocardiogram for further evaluation. Medication list reviewed. Will consult Dr. Carey for continuity of care and recommendations for treatment of CHF. Appreciate his time and expertise. Will need to monitor renal function closely given CKD stage III. Review of prior medical records indicates baseline SCr ~1.2-1.3. Monitor closely on telemetry. Oxygen as needed to maintain SAO2 >90%. She does not use oxygen at home and is not currently on oxygen. She reports her dry weight is around 107 lbs, but is currently only at 104 lbs. She reports that her appetite is good and denies any known or intentional weight loss. She is noted to be Remeron. Will consult dietary for diet recommendations. Recent difficulty with swallowing per patient. Will consult speech therapy for further evaluation and recommendations. Will start soft diet with chopped meats until patient is seen by speech. CXR on admission revealed congestive failure but could not exclude pneumonia or aspiration. Patient has been afebrile without treatment and denies productive cough. No leukocytosis. Will hold off on antimicrobial treatment at this time and continue to monitor closely. Continue home medications. Blood pressure elevated on admission at 180/79. Will need to monitor closely. Ativan as needed for anxiety. Encourage incentive spirometry and SCDs for DVT prophylaxis. Appreciate the opportunity to participate in Mrs. Manuel' care. Upon discharge , her care will be returned to Dr. Rust. <Justyn Carey - Last Filed: 03/16/17 13:59> [facility] Clinic Medical History Congestive heart failure (Acute Medical) acute on chronic exacerbation. Pneumonia (Acute Medical) Anemia (Acute Medical) Subacute, normocytic Acute on chronic diastolic (congestive) heart failure (Acute Medical) Diastolic and systolic Aortic valve sclerosis (Chronic Medical) Nonrheumatic mitral valve insufficiency (Chronic Medical) Essential (primary) hypertension (Chronic Medical) Parkinson's disease (Chronic Medical) Chronic kidney disease (Chronic Medical) CKD (chronic kidney disease) stage 3, GFR 30-59 ml/min (Chronic Medical) Acute on chronic combined systolic and diastolic congestive heart failure, NYHA class 1 (Acute Medical) Acute on chronic diastolic CHF (congestive heart failure), NYHA class 2 (Acute Medical) Acute on chronic combined systolic and diastolic CHF, NYHA class 2 (Acute Medical) Exam Vital signs: Temperature 97.2 F 03/15/17 07:00 Pulse Rate 76 03/15/17 10:35 Respiratory Rate 20 03/15/17 07:00 Blood Pressure 145/65 H 03/15/17 07:00 Pulse Oximetry 97 03/15/17 10:35 Results 03/14/17 04:49 03/15/17 04:37 Assessment and Plan - Attestation Attestation Narrative: 03/16/17 13:59 Recommendation After examining the patient I agree with the above assessment. I am involved in the formulation of the patient's plan of care. - Assessment and Plan (1) Acute on chronic diastolic (congestive) heart failure Problem details: Diastolic and systolic Status: Acute (2) Aortic valve sclerosis Status: Chronic (3) Nonrheumatic mitral valve insufficiency Status: Chronic (4) Essential (primary) hypertension Status: Chronic (5) Parkinson's disease Status: Chronic (6) Chronic kidney disease Status: Chronic Hospital Course Summary Disclaimer: The visit summary below is not to be considered part of the above Progress Note.
[2017-03-14 10:12] VITALS: BMI 20.1
--- NOTE | 2017-03-14 15:51 | Progress Note ---
<Judie Moreno V - Last Filed: 03/14/17 15:47> - Date 03/14/17 Subjective: Rossy is seen and examined this afternoon. She reports that over the last few days she noticed having increased shortness of breath with exertion while carrying her laundry. Denies shortness of breath or chest pain at rest. Ports appetite is good. Objective Vital signs: Temperature 96.1 F L 03/14/17 14:42 Pulse Rate 76 03/14/17 14:42 Respiratory Rate 24 03/14/17 14:42 Blood Pressure 152/67 H 03/14/17 14:42 Pulse Oximetry 95 03/14/17 14:42 Height/Weight/BMI: Height 1.52 m Weight 46.72 kg Body Mass Index 20.1 - Constitutional Present: no acute distress, well nourished, well developed - Routine HEENT Exam Eye: Present: EOMI ENT: Present: mucous membranes moist, dentition normal - Routine Respiratory Exam Present: CTA bilaterally. Absent: wheezes - Routine Cardiovascular Exam Present: RRR, S1, S2. Absent: murmur - Routine Abdominal Exam Present: soft, normoactive bowel sounds, non distended. Absent: tenderness - Routine Extremities Exam Present: full ROM - Routine Back/Spine/Pelvis Exam Back/Spine: Present: full ROM - Routine Skin Exam Present: intact, dry, warm - Routine Neurological Exam Present: alert, oriented X3, CN II-XII intact - Routine Lymphatic Exam Lymphatic: Absent: adenopathy - Routine Psychiatric Exam Present: normal affect, cooperative Results - Labs CBC & Chem 7: 03/14/17 04:49 03/14/17 04:49 Assessment and Plan (1) Congestive heart failure Problem details: acute on chronic exacerbation. Current visit: Yes Status: Acute (2) Anemia Current visit: Yes Status: Acute Assessment and Plan: Assessment: Acute on chronic diastolic CHF with exacerbation. Anemia, present on admission, unspecified. 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 Hypertension. Constipation. Anxiety and depression. CHF, diastolic. GERD. Chronic kidney disease, stage III. Osteoarthritis. Plan Unfortunately Echocardiogram today reveals an EF of 35-40%, which is down from 60% approximately a year and half ago. Dr. imani Carey recommends initiating gentle diuresis with Lasix 20 milligrams daily as well as Entresto BID. Given patient's chronic kidney disease stage III , patient will have to be monitored carefully on these new medications. She does verbalize some concern for this. She does follow with Dr. Adrian Walker- audit partner. Continue to monitor patient on cardiac telemetry, Vital signs stable Recheck BMP tomorrow to follow electrolytes and renal function. May need to supplement potassium. Encourage ambulation with staff. Hospital Course Summary Disclaimer: The visit summary below is not to be considered part of the above Progress Note. Hospital Course: Assessment: Acute on chronic diastolic CHF with exacerbation. Anemia, present on admission, unspecified. 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 Hypertension. Constipation. Anxiety and depression. CHF, diastolic. GERD. Chronic kidney disease, stage III. Osteoarthritis. Plan - 03/13/17 (Admission). Admit to observation status under the care of Dr. Jama. 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 Patient was given Lasix 20mg IV x 1 dose in ED. White Metal Caster is Dr. Carey. Will obtain echocardiogram for further evaluation. Medication list reviewed. Will consult Dr. Carey for continuity of care and recommendations for treatment of CHF. Appreciate his time and expertise. Will need to monitor renal function closely given CKD stage III. Review of prior medical records indicates baseline SCr ~1.2-1.3. Monitor closely on telemetry. Oxygen as needed to maintain SAO2 >90%. She does not use oxygen at home and is not currently on oxygen. She reports her dry weight is around 107 lbs, but is currently only at 104 lbs. She reports that her appetite is good and denies any known or intentional weight loss. She is noted to be Remeron. Will consult dietary for diet recommendations. Recent difficulty with swallowing per patient. Will consult speech therapy for further evaluation and recommendations. Will start soft diet with chopped meats until patient is seen by speech. CXR on admission revealed congestive failure but could not exclude pneumonia or aspiration. Patient has been afebrile without treatment and denies productive cough. No leukocytosis. Will hold off on antimicrobial treatment at this time and continue to monitor closely. Continue home medications. Blood pressure elevated on admission at 180/79. Will need to monitor closely. Ativan as needed for anxiety. Encourage incentive spirometry and SCDs for DVT prophylaxis. Appreciate the opportunity to participate in Mrs. Manuel' care. Upon discharge , her care will be returned to Dr. Rust. 03/14/17- Plan Unfortunately Echocardiogram today reveals an EF of 35-40%, which is down from 60% approximately a year and half ago. Dr. imani Carey recommends initiating gentle diuresis with Lasix 20 milligrams daily as well as Entresto BID. Given patient's chronic kidney disease stage III , patient will have to be monitored carefully on these new medications. She does verbalize some concern for this. She does follow with Dr. Adrian Walker- audit partner. Recheck BMP tomorrow to follow electrolytes and renal function. May need to supplement potassium. Continue to monitor patient on cardiac telemetry, Vital signs stable Encourage ambulation with staff. 03/14/17 15:53 <Debora Joyner - Last Filed: 03/14/17 17:58> - Date 03/14/17 Objective Vital signs: Height/Weight/BMI: Results - Labs CBC & Chem 7: 03/14/17 04:49 03/14/17 04:49 Assessment and Plan (1) Congestive heart failure Problem details: acute on chronic exacerbation. Current visit: Yes Status: Acute (2) Anemia Problem details: Subacute, normocytic Current visit: Yes Status: Acute (3) CKD (chronic kidney disease) stage 3, GFR 30-59 ml/min Current visit: Yes Status: Chronic Assessment and Plan: I have independently evaluated and examined this patient. I reviewed the chart, the patient's history, and the PARTS FACILITATOR/PA's documented findings as above. We discussed and formulated the assessment and plan as above with additions as below: Mrs. Manuel denies restless dyspnea today but had not ambulated the time of my evaluation. She denies cough. She reports no dysphasia or pain. Negative fluid balance yesterday, weight down 0.8 kg. The patient is soft spoken; no tremor present at the time of my exam but bradykinesia present. Respirations are nonlabored with decreased breath sounds at the bases but no wheezing. Cardiac rhythm is regular, no edema at the ankles. Renal function/electrolytes stable Echocardiogram with decreased ejection fraction as noted above. Yesterday's chest x-ray reviewed-small pleural effusions bilaterally, increased vascular markings consistent with CHF. Findings discussed with Dr. Carey-medication changes as described above. Reassess renal function in a.m., check chest x-ray in a.m. Ambulatory oximetry in a.m. Previously described diastolic heart failure is now correctly characterized as systolic CHF. DVT Prophylaxis: SCD's Resuscitation Status: Do Not Resuscitate Hospital Course Summary Disclaimer: The visit summary below is not to be considered part of the above Progress Note.
[2017-03-14] MEDS: FUROSEMIDE 20 MG TABLET PO SCH (16:02)
[2017-03-14] MEDS: SACUBITRIL/VALSARTAN 24/26mg TABLET PO SCH ×2 (16:03→20:24)
--- NOTE | 2017-03-14 17:49 | Ultrasound Report ---
Indication: HTN PROCEDURE: US renal doppler: Encounter: Initial Comparison: None Technique: Grayscale and color Doppler sonographic imaging of both kidneys was performed with duplex evaluation of the renal arteries. Findings: Scans of the kidneys demonstrate normal morphology. The right kidney measures 8.3 cm in length. The left kidney measures 7.3 cm in length. There is no collecting system dilatation, contour deforming mass, nephrolithiasis, or abnormal perinephric fluid collection. Simple appearing 2.3 cm right renal cyst. Color Doppler imaging demonstrates normal vascularization. Resistive indices from the intrarenal arteries in the upper, middle, and lower portions of the right kidney are mildly elevated. Resistive indices from the intrarenal arteries in the upper, middle, and lower portions of the left kidney are mildly elevated. Arterial waveforms are normal. Impression: 1. No evidence of hemodynamically significant renal arterial stenosis. 2. Elevated resistive indices which are nonspecific and most commonly due to medical renal disease. .
--- NOTE | 2017-03-14 18:14 | Echocardiogram ---
DATE OF PROCEDURE March 14, 2017 This is a two-dimensional echo with spectral Doppler, color-flow and M-mode. It was obtained in a patient with congestive heart failure. Left atrial dimension is normal. Left ventricle end-diastolic dimension is normal. Left ventricle wall thickness is normal. Global hypokinesia is present with ejection fraction of about 35%- 40%. Right atrium is normal. Right ventricle is normal. Aortic root dimension is normal. Mitral annulus is calcified. Mitral valve leaflets are sclerotic with [id number] mitral regurgitation. Aortic valve shows fibrocalcific changes. Transaortic velocities are increased with peak velocity of 1.98 m/sec with peak gradient of 15 and mean gradient of 11. Aortic valve area is calculated at 1.3 cm2. Tricuspid valve shows moderate tricuspid regurgitation with moderate pulmonary hypertension with estimated pulmonary artery systolic pressure of 40. Pulmonary valve shows no pulmonary insufficiency. There is no pericardial effusion. IMPRESSION 1. Global hypokinesia with ejection fraction of about 35%-40%. 2. Mitral annulus calcification with mitral sclerosis and [id number] mitral regurgitation. 3. Mild aortic stenosis with a valve area of 1.3 cm2. 4. Moderate tricuspid regurgitation with moderate pulmonary hypertension with estimated pulmonary artery systolic pressure of 44. MTDD
[2017-03-14] MEDS: SERTRALINE 25 MG TABLET PO SCH (20:24)
[2017-03-14] MEDS: MIRTAZAPINE 15 MG TABLET PO SCH (20:24)
[2017-03-15] MEDS: OMEPRAZOLE 20 MG CAPSULE PO SCH (06:09)
[2017-03-15] MEDS: SALINE FLUSH 10ml SYRINGE IVF PRN (06:09)
[2017-03-15] MEDS: SACUBITRIL/VALSARTAN 24/26mg TABLET PO SCH (08:10)
[2017-03-15] MEDS: FUROSEMIDE 20 MG TABLET PO SCH (08:11)
[2017-03-15] MEDS: DOCUSATE SODIUM 100 MG CAPSULE PO SCH (08:12)
--- NOTE | 2017-03-15 08:12 | XRay Report ---
INDICATION: CHF PROCEDURE: CHEST 2-VIEWS UPRIGHT (PA & LAT) Encounter: Initial COMPARISON: March 13, 2017 FINDINGS: Improved aeration of the lung bases with decreasing pleural effusions. Trace fluid remaining. Pulmonary vascular congestion has improved. No new infiltrates. No pneumothorax. Heart size and mediastinal contours are stable. Impression: Improved CHF with trace edema remaining. .
[2017-03-15] MEDS: REFRESH CELLUVISC 1% Eye Drops 0.4ml EACH EYE SCH (08:13)
[2017-03-15] MEDS: MULTI-VITAMIN PLAIN TABLET PO SCH (08:15)
[2017-03-15 08:17] VITALS: BP 145/65; RESP 20; TEMP 97.2
[2017-03-15 10:43] VITALS: PULSE 76; O2SAT 97
--- NOTE | 2017-03-15 11:28 | Progress Note ---
- Date 03/15/17 Subjective: Rossy is seen today in follow up while up in the chair. She states that her dyspnea is feeling better this morning. Ambulatory oximetry performed today, lowest sat reading 90% on room air after ambulating 200 feet. She denies having any chest pain or other discomfort. Appetite has been good. Weight trending down. Objective Vital signs: Temperature 97.2 F 03/15/17 07:00 Pulse Rate 76 03/15/17 10:35 Respiratory Rate 20 03/15/17 07:00 Blood Pressure 145/65 H 03/15/17 07:00 Pulse Oximetry 97 03/15/17 10:35 - Constitutional Present: no acute distress, well nourished, well developed - Routine HEENT Exam Eye: Present: EOMI ENT: Present: mucous membranes moist, dentition normal - Routine Respiratory Exam Present: diminished air movement. Absent: wheezes - Routine Cardiovascular Exam Present: RRR, S1, S2. Absent: murmur - Routine Abdominal Exam Present: soft, normoactive bowel sounds, non distended. Absent: tenderness - Routine Extremities Exam Present: full ROM - Routine Back/Spine/Pelvis Exam Back/Spine: Present: full ROM - Routine Skin Exam Present: intact, dry, warm - Routine Neurological Exam Present: alert, oriented X3, CN II-XII intact, moving all extremities - Routine Lymphatic Exam Lymphatic: Absent: adenopathy - Routine Psychiatric Exam Present: normal affect, cooperative Results - Labs CBC & Chem 7: 03/14/17 04:49 03/15/17 04:37 Assessment and Plan (1) Congestive heart failure Problem details: acute on chronic exacerbation. Current visit: Yes Status: Acute (2) Anemia Problem details: Subacute, normocytic Current visit: Yes Status: Acute (3) CKD (chronic kidney disease) stage 3, GFR 30-59 ml/min Current visit: Yes Status: Chronic Assessment and Plan: Impression Acute on chronic diastolic CHF with exacerbation. Anemia, present on admission, unspecified. 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 Hypertension. Constipation. Anxiety and depression. CHF, diastolic. GERD. Chronic kidney disease, stage III. Osteoarthritis. Plan Case discussed with case management. Patient does meet criteria for inpatient status given her age, BNP greater than 500, creatinine over 1.4, accompanied with acute on chronic congestive heart failure. New cardiac medications as per Dr. Amirani, Lasix 20 milligrams daily and Entresto. Patient is concerned about the cost of this medication. Cardiology team was able to provide samples and coupon. Ambulatory oximetry does not reveal evidence of hypoxia, patient is able to ambulate 200 feet sats decreased to 90%. Lowest. Continue to monitor renal function carefully as Econometrics Professor increased to 1.5. Will need to talk with creative specialist, Adrian Walker regarding ongoing treatment. Renal function will likely need to be monitored carefully by primary care provider, Dr. Rust Will discuss further plan of care with attending, Dr Joyner Hospital Course Summary Disclaimer: The visit summary below is not to be considered part of the above Progress Note. Hospital Course: Assessment: Acute on chronic diastolic CHF with exacerbation. Anemia, present on admission, unspecified. 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 Hypertension. Constipation. Anxiety and depression. CHF, diastolic. GERD. Chronic kidney disease, stage III. Osteoarthritis. Plan - 03/13/17 (Admission). Admit to observation status under the care of Dr. Jama. 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 Patient was given Lasix 20mg IV x 1 dose in ED. Category Planner is Dr. Carey. Will obtain echocardiogram for further evaluation. Medication list reviewed. Will consult Dr. Carey for continuity of care and recommendations for treatment of CHF. Appreciate his time and expertise. Will need to monitor renal function closely given CKD stage III. Review of prior medical records indicates baseline SCr ~1.2-1.3. Monitor closely on telemetry. Oxygen as needed to maintain SAO2 >90%. She does not use oxygen at home and is not currently on oxygen. She reports her dry weight is around 107 lbs, but is currently only at 104 lbs. She reports that her appetite is good and denies any known or intentional weight loss. She is noted to be Remeron. Will consult dietary for diet recommendations. Recent difficulty with swallowing per patient. Will consult speech therapy for further evaluation and recommendations. Will start soft diet with chopped meats until patient is seen by speech. CXR on admission revealed congestive failure but could not exclude pneumonia or aspiration. Patient has been afebrile without treatment and denies productive cough. No leukocytosis. Will hold off on antimicrobial treatment at this time and continue to monitor closely. Continue home medications. Blood pressure elevated on admission at 180/79. Will need to monitor closely. Ativan as needed for anxiety. Encourage incentive spirometry and SCDs for DVT prophylaxis. Appreciate the opportunity to participate in Mrs. Manuel' care. Upon discharge , her care will be returned to Dr. Rust. 03/14/17- Plan Unfortunately Echocardiogram today reveals an EF of 35-40%, which is down from 60% approximately a year and half ago. Dr. imani Carey recommends initiating gentle diuresis with Lasix 20 milligrams daily as well as Entresto BID. Given patient's chronic kidney disease stage III , patient will have to be monitored carefully on these new medications. She does verbalize some concern for this. She does follow with Dr. Adrian Walker- creative specialist. Recheck BMP tomorrow to follow electrolytes and renal function. May need to supplement potassium. Continue to monitor patient on cardiac telemetry, Vital signs stable Encourage ambulation with staff. 03/15/17- Plan Case discussed with case management. Patient does meet criteria for inpatient status given her age, BNP greater than 500, creatinine over 1.4, accompanied with acute on chronic congestive heart failure. New cardiac medications as per Dr. Carey, Lasix 20 milligrams daily and Entresto. Patient is concerned about the cost of this medication. Cardiology team was able to provide samples and coupon. Ambulatory oximetry does not reveal evidence of hypoxia, patient is able to ambulate 200 feet sats decreased to 90%. Lowest. Continue to monitor renal function carefully as Econometrics Professor increased to 1.5. Will need to talk with creative specialist, Adrian Walker regarding ongoing treatment. Renal function will likely need to be monitored carefully by primary care provider, Dr. Rust Will discuss further plan of care with attending, Dr Joyner
--- NOTE | 2017-03-15 14:13 | Discharge Summary ---
<Judie Moreno V - Last Filed: 03/15/17 14:08> Discharge Information Date of admission: 03/15/17 09:30 Anticipated date of discharge: 03/15/17 Attending Physician: Debora Joyner MD Primary care physician: Ekateirna Rust MD Consults: Dr Carye- Predatory Animal Trapper - Discharge Diagnosis (1) Congestive heart failure Status: Acute (2) Anemia Status: Acute (3) CKD (chronic kidney disease) stage 3, GFR 30-59 ml/min Status: Chronic Acute on chronic diastolic CHF with exacerbation. Anemia, present on admission, unspecified. 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 Hypertension. Constipation. Anxiety and depression. CHF, diastolic. GERD. Osteoarthritis. - Procedures Procedures: None - Laboratory Labs: Laboratory Results - last 24 hr 03/15/17 04:37 Turbidity < 20 Sodium 139 Potassium 4.0 Chloride 104 Carbon Dioxide 26 Anion Gap 9 BUN 32.0 H Creatinine 1.5 H D GFR Calculation 33 BUN/Creatinine Ratio 21 Glucose 99 Calculated Osmolality 275 Calcium 8.8 Icterus Index < 2 Specimen Hemolysis < 15 03/14/17 04:49 - Microbiology None - Radiology Radiology: 03/13/17-chest x-ray Impression: Mild congestive failure. Mild pneumonia or aspiration cannot be entirely excluded in the lung bases. 03/14/17-renal Doppler Impression: 1. No evidence of hemodynamically significant renal arterial stenosis. 2. Elevated resistive indices which are nonspecific and most commonly due to medical renal disease. 03/14/17-echocardiogram 1. Global hypokinesia with ejection fraction of about 35%-40%. 2. Mitral annulus calcification with mitral sclerosis and [id number] mitral regurgitation. 3. Mild aortic stenosis with a valve area of 1.3 cm2. 4. Moderate tricuspid regurgitation with moderate pulmonary hypertension with estimated pulmonary artery systolic pressure of 44. 03/15/17-chest x-ray, revealing improved congestive heart failure, trace edema remaining. History of Present Illness HPI: Rossy Manuel is a very pleasant, soft spoken female resident at [facility] who presented to [facility] emergency room today, 03/13/17, for evaluation of increased difficulty breathing. She reports that over the past 4- 5 days she has had increased difficulty breathing with dry cough and increased lower extremity swelling. She also reports increased difficulty breathing when laying flat causing her to become more anxious and resulting in her sitting up, gasping for air. She denies any recent fevers, chills, chest pain, abdominal pain, nausea, vomiting or dysuria. She does admit to increased difficulty swallowing her food but denies any recent coughing or choking on her food. She has a history of Parkinson's disease for which she follows with Dr. Shirlene Mata. Due to her increased difficulty breathing, she presented to the ED for evaluation. Upon arrival to the ED, vital signs revealed hypertension at 180/79 , tachypnea with respiratory rate of 24 and pulse ox of 98% on room air. She was noted to be afebrile with no treatment. Labs were obtained and revealed mild anemia (Hgb 10.7 and elevated BUN and SCr at 33 and 1.3. Review of prior medical records reveals history of chronic kidney disease stage III with average GFR in the 30's and base line creatine around 1.2-1.3. BNP was elevated at 7700. CXR revealed mild congestive failure but could not exclude pneumonia or aspiration in lung bases. While in the ED, she received Lasix 20mg IV x [address] Jama was contacted and she was admitted into observation status for close respiratory monitoring and continued diuresis. Her length of stay is not expected to exceed more than 2 over nights. Objective Vital signs: Temperature 97.2 F 03/15/17 07:00 Pulse Rate 76 03/15/17 10:35 Respiratory Rate 20 03/15/17 07:00 Blood Pressure 145/65 H 03/15/17 07:00 Pulse Oximetry 97 03/15/17 10:35 - Constitutional Present: no acute distress, well nourished, well developed - Routine HEENT Exam Eye: Present: EOMI ENT: Present: mucous membranes moist, dentition normal - Routine Respiratory Exam Present: CTA bilaterally. Absent: wheezes - Routine Cardiovascular Exam Present: RRR, S1, S2. Absent: murmur - Routine Abdominal Exam Present: soft, normoactive bowel sounds, non distended. Absent: tenderness - Routine Extremities Exam Present: normal capillary refill - Routine Skin Exam Present: intact, dry, warm - Routine Neurological Exam Present: alert, oriented X3, CN II-XII intact - Routine Lymphatic Exam Lymphatic: Absent: adenopathy - Routine Psychiatric Exam Present: normal affect, cooperative Hospital Course This is a general summary of the patient's hospital course. For more details refer to the complete medical record. Hospital course: Assessment: Acute on chronic diastolic CHF with exacerbation. Anemia, present on admission, unspecified. 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 Hypertension. Constipation. Anxiety and depression. CHF, diastolic. GERD. Chronic kidney disease, stage III. Osteoarthritis. Plan - 03/13/17 (Admission). Admit to observation status under the care of Dr. Jama. 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 Patient was given Lasix 20mg IV x 1 dose in ED. Predatory Animal Trapper is Dr. Carey. Will obtain echocardiogram for further evaluation. Medication list reviewed. Will consult Dr. Carey for continuity of care and recommendations for treatment of CHF. Appreciate his time and expertise. Will need to monitor renal function closely given CKD stage III. Review of prior medical records indicates baseline SCr ~1.2-1.3. Monitor closely on telemetry. Oxygen as needed to maintain SAO2 >90%. She does not use oxygen at home and is not currently on oxygen. She reports her dry weight is around 107 lbs, but is currently only at 104 lbs. She reports that her appetite is good and denies any known or intentional weight loss. She is noted to be Remeron. Will consult dietary for diet recommendations. Recent difficulty with swallowing per patient. Will consult speech therapy for further evaluation and recommendations. Will start soft diet with chopped meats until patient is seen by speech. CXR on admission revealed congestive failure but could not exclude pneumonia or aspiration. Patient has been afebrile without treatment and denies productive cough. No leukocytosis. Will hold off on antimicrobial treatment at this time and continue to monitor closely. Continue home medications. Blood pressure elevated on admission at 180/79. Will need to monitor closely. Ativan as needed for anxiety. Encourage incentive spirometry and SCDs for DVT prophylaxis. Appreciate the opportunity to participate in Mrs. Manuel' care. Upon discharge , her care will be returned to Dr. Rust. 03/14/17- Plan Unfortunately Echocardiogram today reveals an EF of 35-40%, which is down from 60% approximately a year and half ago. Dr. imani Carey recommends initiating gentle diuresis with Lasix 20 milligrams daily as well as Entresto BID. Given patient's chronic kidney disease stage III , patient will have to be monitored carefully on these new medications. She does verbalize some concern for this. She does follow with Dr. Adrian Walker- passenger car upholsterer apprentice. Recheck BMP tomorrow to follow electrolytes and renal function. May need to supplement potassium. Continue to monitor patient on cardiac telemetry, Vital signs stable Encourage ambulation with staff. 03/15/17-Discharge Case discussed with case management. Patient does meet criteria for inpatient status given her age, BNP greater than 500, creatinine over 1.4, accompanied with acute on chronic congestive heart failure. New cardiac medications as per Dr. Carey, Lasix 20 milligrams daily and Entresto. Patient is concerned about the cost of this medication. Cardiology team was able to provide samples and coupon. Ambulatory oximetry does not reveal evidence of hypoxia, patient is able to ambulate 200 feet sats decreased to 90% at Lowest. Continue to monitor renal function carefully as Blister Packing Machine Tender increased to 1.5. She is planned to follow-up with [facility] tomorrow to have labs drawn. She will then follow-up with Dr. Rust next week. Also scheduled to follow-up with Dr. Carey in 2 weeks. Time spent with patient: discharge greater than 30 minutes Discharge Plan - Discharge Disposition Discharge Date: 03/15/17 Disposition: 01 Discharged Home, Self-Care *Condition: Stable Reason For Visit (Visit label in EMR): dyspnea - Discharge Medications *Discharge Medications: New SACUBITRIL/VALSARTAN 24/26mg [ENTRESTO 24/26mg] 1 tab PO BID #30 tab Furosemide [Lasix] 20 mg PO DAILY #30 tab Continue Sertraline HCl 25 mg PO HS #30 Melatonin 5 mg PO HS PRN PRN Reason: Sleep Oxybutynin Chloride 5 mg PO HS PRN PRN Reason: Prn Orders Biotin 300 mcg PO Q48H Metoprolol Succinate 12.5 mg PO DAILY Docusate Sodium [Colace] 100 mg PO BID Cholecalciferol [Vit. D-3] 1,000 unit PO DAILY Carbidopa/Levodopa [Carbidopa-Levodopa 25-250 Tab] 1 tab PO TID Aspirin Chewable [ASA] 81 mg PO Q48H Mirtazapine [Remeron] 15 mg PO HS #0 Omeprazole 20 mg PO DAILY #0 Acetaminophen [Acetaminophen ER] 650 mg PO Q6H PRN PRN Reason: Pain Propylene Glycol [Lubricant Eye Drops] 1 drop OP DAILY Multivitamin [One Daily Multivitamin] 1 each PO DAILY - Discharge Packet/Instructions *Diet: Regular diet, chopped meat, 2 grams sodium *Activity: Activity as tolerated *Pain Management/Treatment: Tylenol as needed for pain *Wound Care: None Additional Instructions: Take Lasix daily. Take Entresto samples twice a day as directed. Then can use coupon with Rx. Continue on other home medications. Follow up [facility] tomorrow 03/16/17- For lab only *Expected Signs/Symptoms: Improvement in breathing *Notify Physician if: Fever, Severe shortness of breath or chest pain *During Business Hours Contact: Dr De Leon or Dr Carey *After Business Hours Contact: Carlie rush Dr or present to the ER *Pending Lab/Results: No Pending Lab - Referrals/Follow Up *Referrals/Follow Up: Justyn Carey MD [Physician] - (Please schedule apt for APPOINTMENT ON 03/30 AT 9:30. ) Ekaterina Rust MD [Primary Care Provider] - (Please schedule follow-up appointment for next week APPOINTMENT ON 03/27 AT 4:30) - Patient Handouts Patient Handouts: Dyspnea (GEN) - Dismissal Complete Discharge Instructions are:: Complete <Debora Joyner - Last Filed: 03/15/17 16:40> Discharge Information Date of admission: 03/15/17 09:30 - Discharge Diagnosis (1) Acute on chronic combined systolic and diastolic CHF, NYHA class 2 Status: Acute (2) CKD (chronic kidney disease) stage 3, GFR 30-59 ml/min Status: Chronic (3) Anemia Status: Acute Hospital Course This is a general summary of the patient's hospital course. For more details refer to the complete medical record. Hospital course: I have independently evaluated and examined this patient. I reviewed the chart, the patient's history, and the LINUX ADMIN ENGINEER/PA's documented findings as above. We discussed and formulated the assessment and plan as above with additions as below: Mrs. Manuel remains on room air and reports that she feels less short of breath today than she did on admission. She denies cough. She ambulated with respiratory therapy earlier with oxygen saturation starting at 97% but dropping to 90% while ambulating; saturation recovered to 96%. She did not desaturate ambulating on room air. Weight today is 46.75 kg. Patient denies lower extremity edema. The patient is alert and respirations are nonlabored with good airflow. There are persistent crackles at the left base. Cardiac rhythm is regular with sinus rhythm on telemetry. No peripheral edema is present. Creatinine is up slightly at 1.5, review of recent labs in our system indicates creatinine has ranged from 1.3-1.8 over the past 1.5 yrs. Mrs. Manuel is stable for discharge; discharge plans reviewed with both Dr. Rust and Dr. Carey. Renal function to be reassessed tomorrow and the patient will see Dr. Rust next week. Dr. Walker notified of patient's hospitalization and medication changes. Primary diagnosis should be: acute/chronic combined systolic/diastolic CHF. Time spent with patient: discharge greater than 30 minutes
--- NOTE | 2017-03-15 14:40 | Cardiology Progress Note ---
<Marina Garcia - Last Filed: 03/15/17 14:26> Subjective Principal diagnosis: CHF Interval history: Rossy is seen in follow up for exacerbation of diastolic CHF and newly discovered reduced EF of 35-40%. She is sitting up in her recliner with family at the bedside. She denies chest pain, palpitations, dyspnea or dizziness. Exam Vital signs: Temperature 97.2 F 03/15/17 07:00 Pulse Rate 76 03/15/17 10:35 Respiratory Rate 20 03/15/17 07:00 Blood Pressure 145/65 H 03/15/17 07:00 Pulse Oximetry 97 03/15/17 10:35 - Constitutional no acute distress, well nourished, thin, cooperative - Routine HEENT Exam Head: Present: normocephalic ENT: Present: mucous membranes moist - Routine Neck Exam Absent: JVD, carotid bruit - Routine Chest/Breast/Axilla Exam Chest wall: Absent: tenderness - Routine Respiratory Exam Present: rales (bibasilar), diminished air movement (bases). Absent: CTA bilaterally - Routine Cardiovascular Exam Present: RRR, murmur (II/) - Routine Abdominal Exam Present: soft, normoactive bowel sounds - Routine Extremities Exam Present: no edema - Routine Skin Exam Present: intact, dry, warm - Routine Neurological Exam Present: alert, oriented X3 - Routine Psychiatric Exam Present: normal affect, normal thought process - Additional findings Additional findings: Acetaminophen (Tylenol Arthritis) 650 mg PO Q6H PRN PRN Reason: Pain Last Admin: 03/14/17 21:55 Dose: 650 mg Artificial Tears (Refresh Celluvisc) 1 drop EACH EYE DAILY [facility] Last Admin: 03/15/17 08:13 Dose: 1 drop Aspirin (Asa) 81 mg PO Q48H [facility] Last Admin: 03/14/17 08:54 Dose: 81 mg Carbidopa/Levodopa (Sinemet) 1 tab PO 0800,1200,1700 [facility] Last Admin: 03/15/17 12:39 Dose: 1 tab Cholecalciferol (Vit. D-3) 1,000 unit PO DAILY [facility] Last Admin: 03/15/17 08:14 Dose: 1,000 unit Docusate Sodium (Colace) 100 mg PO BID [facility] Last Admin: 03/15/17 08:12 Dose: 100 mg Furosemide (Lasix) 20 mg PO DAILY [facility] Last Admin: 03/15/17 08:11 Dose: 20 mg Lorazepam (Ativan Inj) 0.25 mg IVP Q6H PRN PRN Reason: Anxiety Magnesium Hydroxide (Mom) 30 ml PO DAILY PRN PRN Reason: Constipation Melatonin (Melatonin) 5 mg PO HS PRN PRN Reason: Sleep Last Admin: 03/14/17 22:54 Dose: 5 mg Metoprolol Succinate (Toprol Xl) 12.5 mg PO DAILY [facility] Last Admin: 03/15/17 08:14 Dose: 12.5 mg Mirtazapine (Remeron) 15 mg PO HS [facility] Last Admin: 03/14/17 20:24 Dose: 15 mg Multivitamins (Theragran) 1 tab PO DAILY [facility] Last Admin: 03/15/17 08:15 Dose: 1 tab Biotin 300 Mcg (Tablet) 300 mcg PO Q48H [facility] Last Admin: 03/14/17 08:55 Dose: 300 mcg Omeprazole (Prilosec) 20 mg PO ACB [facility] Last Admin: 03/15/17 06:09 Dose: 20 mg Ondansetron HCl (Zofran) 4 mg IVP Q6H PRN PRN Reason: Nausea &/or vomiting Oxybutynin Chloride (Ditropan) 5 mg PO HS PRN PRN Reason: AT HOME Sacubitril/Valsartan (Entresto 24/26mg) 1 tab PO BID [facility] Last Admin: 03/15/17 08:10 Dose: 1 tab Sertraline HCl (Zoloft) 25 mg PO HS [facility] Last Admin: 03/14/17 20:24 Dose: 25 mg Sodium Chloride (Iv Flush) 10 - 80 ml IVF PRN PRN PRN Reason: Flushing Last Admin: 03/15/17 06:09 Dose: 10 ml Results 03/14/17 04:49 03/15/17 04:37 Intake and Output 03/14/17 03/15/17 03/15/17 22:59 06:59 14:59 Intake Total 418 / 608 Output Total 200 / 200 Balance 218 / 408 Intake: Oral 418 / 608 Output: Urine 200 / 200 Other: Urine Appearance Clear Urine Color Yellow # Voids 1 Laboratory Results - last 24 hr 03/15/17 04:37 Turbidity < 20 Sodium 139 Potassium 4.0 Chloride 104 Carbon Dioxide 26 Anion Gap 9 BUN 32.0 H Creatinine 1.5 H D GFR Calculation 33 BUN/Creatinine Ratio 21 Glucose 99 Calculated Osmolality 275 Calcium 8.8 Icterus Index < 2 Specimen Hemolysis < 15 Assessment and Plan - Assessment and Plan (1) Acute on chronic diastolic (congestive) heart failure Problem details: Diastolic and systolic Status: Acute (2) Aortic valve sclerosis Status: Chronic (3) Nonrheumatic mitral valve insufficiency Status: Chronic (4) Essential (primary) hypertension Status: Chronic (5) Parkinson's disease Status: Chronic (6) Chronic kidney disease Status: Chronic - Assessment and Plan 03/14/17 Acute on chronic diastolic and systolic CHF: - EF on echo 35-40%, down from 60% 18 months ago - Continue BB, add ARNI - Gentle diuresis with Lasix 20mg po daily - May need further evaluation for CAD cause for decreased EF HTN: Suboptimal control - will add Entresto - Monitor renal function Thank you for allowing us to participate in the care of this patient. 03/15/17 Okay to discharge when okay with hospitalist. - Entresto samples and discount card provided to patient - Need follow renal panel in the next day or [address] Carey in 2-3 weeks. Hospital Course Summary Disclaimer: The visit summary below is not to be considered part of the above Progress Note. Hospital Course: Assessment: Acute on chronic diastolic CHF with exacerbation. Anemia, present on admission, unspecified. 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 Hypertension. Constipation. Anxiety and depression. CHF, diastolic. GERD. Chronic kidney disease, stage III. Osteoarthritis. Plan - 03/13/17 (Admission). Admit to observation status under the care of Dr. Jama. 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 Patient was given Lasix 20mg IV x 1 dose in ED. [employer] Administrator is Dr. Carey. Will obtain echocardiogram for further evaluation. Medication list reviewed. Will consult Dr. Carey for continuity of care and recommendations for treatment of CHF. Appreciate his time and expertise. Will need to monitor renal function closely given CKD stage III. Review of prior medical records indicates baseline SCr ~1.2-1.3. Monitor closely on telemetry. Oxygen as needed to maintain SAO2 >90%. She does not use oxygen at home and is not currently on oxygen. She reports her dry weight is around 107 lbs, but is currently only at 104 lbs. She reports that her appetite is good and denies any known or intentional weight loss. She is noted to be Remeron. Will consult dietary for diet recommendations. Recent difficulty with swallowing per patient. Will consult speech therapy for further evaluation and recommendations. Will start soft diet with chopped meats until patient is seen by speech. CXR on admission revealed congestive failure but could not exclude pneumonia or aspiration. Patient has been afebrile without treatment and denies productive cough. No leukocytosis. Will hold off on antimicrobial treatment at this time and continue to monitor closely. Continue home medications. Blood pressure elevated on admission at 180/79. Will need to monitor closely. Ativan as needed for anxiety. Encourage incentive spirometry and SCDs for DVT prophylaxis. Appreciate the opportunity to participate in Mrs. Manuel' care. Upon discharge , her care will be returned to Dr. Rust. <Justyn Carey - Last Filed: 03/16/17 13:59> Exam Vital signs: Temperature 97.2 F 03/15/17 07:00 Pulse Rate 76 03/15/17 10:35 Respiratory Rate 20 03/15/17 07:00 Blood Pressure 145/65 H 03/15/17 07:00 Pulse Oximetry 97 03/15/17 10:35 Results 03/14/17 04:49 03/15/17 04:37 Assessment and Plan - Assessment and Plan (1) Acute on chronic diastolic (congestive) heart failure Problem details: Diastolic and systolic Status: Acute (2) Aortic valve sclerosis Status: Chronic (3) Nonrheumatic mitral valve insufficiency Status: Chronic (4) Essential (primary) hypertension Status: Chronic (5) Parkinson's disease Status: Chronic (6) Chronic kidney disease Status: Chronic - Attestation Attestation Narrative: 03/16/17 13:59 Recommendation After examining the patient I agree with the above assessment. I am involved in the formulation of the patient's plan of care. Hospital Course Summary Disclaimer: The visit summary below is not to be considered part of the above Progress Note.
== END 2017-03-15 15:05 | disposition home or self-care (01) | DRG 291 ==
LOC: ED 11:51 → MED 11:51 → SUATTDRO 14:47 → MED 14:55
PROVIDERS: ADMIT Hospitalist; ATTEND Internal Medicine

== ENCOUNTER 2017-05-09 15:54 | Inpatient (IN) ==
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
[2017-05-09] MEDS ORDERED: FentaNYL 100 MCG/2 ML INJECTION IVP PRN (16:13)
[2017-05-09] MEDS ORDERED: FentaNYL 100 MCG/2 ML INJECTION NAS PRN (16:30)
--- NOTE | 2017-05-09 16:55 | XRay Report ---
Indication: pain over proximal humerus after fall PROCEDURE: XR humerus LT: Encounter: Initial Comparison: None Findings: There is no acute fracture, dislocation or malalignment identified. Impression: No acute osseous abnormality. .
--- NOTE | 2017-05-09 17:05 | XRay Report ---
Indication: pain over left lateral hip after a fall PROCEDURE: XR pelvis w/ 2 view LT hip: Encounter: Initial Comparison: Radiographs dated May 03, [address] abdomen/pelvis dated August 25, 2016. Findings: Cortical irregularity of both inferior pubic rami, greater on the left suggesting acute fractures. No additional area concerning for acute fracture or dislocation. Mild osteoarthritis in both hips mild bony demineralization. Arterial vascular calcifications Impression: New left inferior pubic ramus fracture and possible nondisplaced fracture of the right inferior pubic ramus. .
[2017-05-09] MEDS ORDERED: MORPHINE SULFATE 4mg INJECTION IM ONE (17:49)
[2017-05-09] MEDS ORDERED: FUROSEMIDE 20 MG TABLET PO SCH (21:39)
[2017-05-09] MEDS ORDERED: MELATONIN 5 MG TABLET PO PRN (21:39)
[2017-05-09] MEDS ORDERED: ONDANSETRON 4 MG/2 ML INJECTION IVP PRN (21:39)
--- NOTE | 2017-05-09 21:41 | History & Physical Report ---
History of Present Illness Date: 05/10/17 Chief complaint: left hip/lateral thigh pain HPI: This is an 86 YO F w/ CHF, heart valve issues, chronic anemia, CKD, HTN and Parkinson's brought to ED vis EMS for evaluation of left hip pain after a fall. Patient says she was trying to get into a store that had 2 doorways and had hold of door handle when the wind blew her over. Patient says she landed on her left lateral hip and left lateral shoulder and noted pain more so in the left hip pain area. Patient denies head trauma; no neck pain, no LOC, She denies dizziness/lightheaded prior to or after fall and no ataxia. Pain mainly in left lateral upper thigh and in groin. Patient denies cp, soa, dizziness, dysequilibrium; denies focal and global weakness; Denies f/c/s; n/v/d and no change in bladder function. In ED, patient had xray of pelvis showing left rami fx; in ER not ambulating d/ t pain; Also on labs noted to have WBC of 14K, BUN/Cr of 56/1.9 and Hgb = 7.8; Has left lateral hip/thigh hematoma. Patient given Fentanyl for pain initially , morphine after that and thought morphine worked a little better; Typed and crossed in ER and hemoccult stool negative. Patient to be admitted to the Hospitalist service for further evaluation and management. Review of Systems All systems PM: 10-point ROS was reviewed, no additional remarkable complaints except Past Medical History Surgical History: Hypertectomy with bilateral oophorectomy. Cholecystecomy. Left knee arthroscopy - 04/01/1999. Medial compartment knee replacement of left knee - 06/20/2001, Dr. Soliz. Left total knee replacement - 07/18/2001. Left total knee revision - 07/20/2003, Dr. Soliz. Total joint revision of left knee - 11/25/2003, Dr. Suárez. Lumbar epidural steroid injection - 10/04/2010, Dr. Menjivar. Lumbar epidural steroid injection, 04/05/2011, Dr. Menjivar. Carotid doppler - 08/27/15 (no significant stenosis). Cataract removal - . Excision urethral caruncle/mass with meatoplasty, cystoscopy and urethral dilation - 05/19/2008. Echocardiogram - 09/20/11 (EF 55-65%, mild dysfunction, mild pulmonary hypertension with arterial pressure 40mmHg due 5to partially collapsing IVC. Family History Updates: No significant family history reported - Social History Smoking status: Never smoker Medications Home Medications Medication Instructions Recorded Confirmed Type Mirtazapine [Remeron] 15 mg PO HS #0 04/05/11 05/09/17 History Acetaminophen [Acetaminophen ER] 650 mg PO Q6H PRN 03/13/17 05/09/17 History Aspirin Chewable [ASA] 81 mg PO Q48H 03/13/17 05/09/17 History Carbidopa/Levodopa 1 tab PO TID 03/13/17 05/09/17 History [Carbidopa-Levodopa 25-250 Tab] Cholecalciferol [Vit. D-3] 1,000 unit PO DAILY 03/13/17 05/09/17 History Melatonin 5 mg PO HS PRN 03/13/17 05/09/17 History Multivitamin [One Daily 1 each PO DAILY 03/13/17 05/09/17 History Multivitamin] Oxybutynin Chloride 5 mg PO HS PRN 03/13/17 05/09/17 History Biotin 5 mg PO Q48H 04/17/17 05/09/17 History Docusate Sodium [Colace] 100 mg PO BID 04/17/17 05/09/17 History Furosemide [Lasix] 20 mg PO BID 05/09/17 05/09/17 History Isosorbide Mononitrate ER [Imdur] 30 mg PO QAM 05/09/17 05/09/17 History Omeprazole [Prilosec] 20 mg PO ACB 05/09/17 05/09/17 History Propylene Glycol [Lubricant Eye 1 drop EACH EYE DAILY 05/09/17 05/09/17 History Drops] Sertraline [Zoloft] 25 mg PO HS 05/09/17 05/09/17 History Allergies Allergy/AdvReac Type Severity Reaction Status Date / Time clarithromycin AdvReac Mild STOMACH Verified 05/09/17 16:48 PAIN Exam Vital Signs: Temperature 96.5 F L 05/09/17 15:55 Pulse Rate 79 05/09/17 21:00 Respiratory Rate 22 05/09/17 21:00 Blood Pressure 133/62 05/09/17 21:00 Pulse Oximetry 92 01/10/18 21:00 - Constitutional Present: no acute distress, well nourished, thin - Routine HEENT Exam Head: Present: normocephalic, atraumatic Eye: Present: EOMI, PERRL ENT: Present: mucous membranes moist - Routine Neck Exam Present: supple, full ROM. Absent: JVD - Routine Respiratory Exam Present: CTA bilaterally. Absent: accessory muscle use, respiratory distress, wheezes - Routine Cardiovascular Exam Present: RRR, murmur - Routine Abdominal Exam Present: soft, normoactive bowel sounds, non distended, non tender - Routine Extremities Exam Present: edema (1+ ankle). Absent: cyanosis, clubbing - Routine Back/Spine/Pelvis Exam Comments: Left hip w/ hematoma; small hematoma left shoulder - Routine Neurological Exam Present: alert, oriented X3, CN II-XII intact + resting tremor bilateral upper extremities - Routine Psychiatric Exam Present: normal affect, normal thought process Results - Labs CBC & Chem 7: 05/10/17 04:30 05/10/17 04:30 Assessment and Plan Assessment and Plan: Assessment: 1) Acute Left rami fracture s/p fall 2) Acute on Chronic Anemia 3) CKD 4) CHF - both diastolic and systolic dysfunction 5) Aortic and mitral insufficiency 6) HTN 7) Parkinson's Plan: Admit to Hospitalist Telemetry Hold Plavix Home meds as indicated Frye meds - both IV and po STool softeners PT/OT Whiteside catheter SCDs Labs in AM I have discussed the plan of care w/ the patient including possible need for a blood transfusion and patient verbalized understanding 05/10/2017-Dr Patrick-1:08pm Seen and examined the patient. I've reviewed the H&P above by Dr. Romo and agree. Please see my additions below. Chief complaint is fall with left shoulder pain and bilateral groin pain History of present illness: The patient states that she was going into the bookstore and reached for the handle of the door and fell. She states she did not think she was lightheaded. She did not lose consciousness. She does not think she hit her head. She went to the emergency room and was found to have a new left inferior pubic ramus fracture and possible nondisplaced fracture of the right inferior pubic ramus. X-ray of the left humerus showed no abnormalities. On admission, she had lab abnormalities including a hemoglobin of 7.8 which was down from 9.4 on May 02 and down from 9.7 on April 18. She also had worsening in her chronic kidney disease with BUN of 56 and creatinine of 1.9. Her baseline creatinine is 1.3-1.7. GFR was down to 24. Hemoccult of the stool in the emergency room was reportedly negative. The patient states she does not look at her stools typically but did notice a dark streak in her stool recently. She denies any abdominal discomfort and has not had history of gastric ulcer. She is not taking any NSAIDs other than her 81 mg aspirin daily. She has not noticed any red bloody stools. She has not had any vomiting. She has not had any abnormal bruising. She has had some mild epistaxis but nothing very significant. She underwent heart catheterization and placement of a drug-eluting stent on and has been on Plavix and aspirin since that time. She states that prior to stent placement she had shortness of breath with activity and that has resolved after stent placement. She has denied having any chest pain. Prior to the patient's fall yesterday, she states she was feeling fine. She denied any lightheadedness or chest pain. She denied any recent infectious symptoms. She denied any fevers, chills or sweats. She states she been eating and drinking normally. She states she was started on a new medication, possibly entresto recently by Dr. Carey, but it was discontinued when her blood pressure was too low. PCP - Dr. Rust. Cardio - Dr. Carey. Neuro - Dr. Shirlene Mata. [place] Controller -Dr. Adrian Walker Past medical history Drug-eluting cardiac Stent placed 04/17/[address] Carey Coronary artery disease Chronic kidney disease with baseline creatinine of 1.3-1.7 stage III Chronic systolic and diastolic heart failure. Recent echocardiogram showed an EF of 35-40%. Parkinson's disease Hypertension Constipation Anxiety and depression Osteoarthritis Spinal stenosis GERD Past surgical history is reviewed and unchanged from above Social history: Nonsmoker, patient lives alone in assisted living at [facility]. Her daughter Yanet Morrissey is her DPOA. The patient states that she is DO NOT RESUSCITATE and wants to continue to be DO NOT RESUSCITATE Family History Updates: Father at age 63 of NE. Mother at age 91 due to old age. Fiver brothers who are . Brother #1 who at age 74, alcoholosim and of a cerebral hemorrhage. Brother #2 who at age 88 of old age. Brother #3 who at age 11 of shock after wringer injury. Brother #4 who at age 90 of heart problems and renal failure. Sister #1 at age 68 of breast cancer. Sister #2 at age 23 of breast cancer. Sister #3 at age 93 of heart problems. Sister #4 at age 85. Nephew at age 57 of Eve Gehrig disease. Patient reports that she is . She has 2 living daughters which she reports are alive and healthy. 1 daughter is as of August 2016 at the age of 61 due to breast cancer. She also has a living son who she states has problems with his back. Physical exam Afebrile, heart rate 76, respirations 18, blood pressure 100/49, O2 sat 99% on 1 L. She had hypoxia on room air reportedly. Gen. she is alert and oriented 3. She does appear weak. She is a thin female at 47.9 kg. Voice is soft, likely from her Parkinson's disease. HEENT reveals sclerae to be anicteric and pupils are equal. Oropharynx is moist. Neck is supple. Chest is clear to auscultation. Cardiovascular reveals a regular rate and rhythm without murmur. Abdomen is soft and nontender. Extremities are free of edema. She has severe pain even with moving the head of the bed up or down despite receiving IV morphine in the last one hour. Rectal exam performed by myself this afternoon shows light brown stool which is soft in the rectal vault. This will be sent for Hemoccult. Skin is warm and dry and without rashes. Impression Bilateral pubic rami fracture Acute on chronic anemia of uncertain etiology-initial Hemoccult stool was negative. Repeat Hemoccult is pending. No symptoms of GI bleed. Acute kidney injury on chronic kidney disease. Creatinine baseline is 1.3-1.7 and is up to 2.0 now Coronary artery disease with recent drug eluting stent placement in the past 2 weeks on dual therapy with Plavix and aspirin 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 and EF of 35-40% Aortic and mitral insufficiency Hypertension Parkinson's disease Severe pain due to bilateral pubic rami fracture despite receiving several doses of IV morphine Mild hypoxia, likely secondary to decreased respiratory drive with narcotics Plan The patient was admitted as an inpatient because of her acute bilateral pubic rami fracture requiring IV pain medication. This is also complicated by her acute blood loss anemia on chronic anemia. The cause of her acute blood loss is not known but could be in part related to bilateral pubic rami fracture. She is receiving 1 unit of blood now. Will repeat hemoglobin after this unit is given. Repeat Hemoccult stool is pending We'll start IV Protonix Discussed the patient's new worsening anemia with her slag dumper Dr. Carey. He would prefer she stay on Plavix if at all possible and possibly hold aspirin at this time. Regarding acute kidney injury on chronic kidney disease, the patient is being given a unit of blood now. Whiteside was placed. We'll recheck basic metabolic profile after the unit of blood has completed. May need cautious IV fluids. PT, OT and Dr. Bowens orthopedic surgeon consulted regarding her pubic rami fractures SCDs for DVT prophylaxis Hold aspirin. We'll likely restart Plavix hemoglobin improving with transfusion and no signs of worsening blood loss We'll place a second IV site Patient requests to be DO NOT RESUSCITATE. Continue home medications for Parkinson's disease, depression and anxiety. Continue metoprolol. We'll give MiraLAX to try to prevent constipation with high dose narcotics. Discussed with the patient's nurse, Dr. Bowens, and Dr. Carey. DVT Prophylaxis: SCD's GI Prophylaxis: Protonix Resuscitation Status: Do Not Resuscitate - Time spent with patient Time with patient PN: 70 minutes - Physician Narrative Physician: Soledad Gooden MD Narrative: Date: 05/09/17 Time: 2134 Hospital Course Summary Disclaimer: The visit summary below is not to be considered part of the above Progress Note.
[2017-05-09] MEDS ORDERED: FALL RISK - PHARMACY CONSULT XX ONE (21:50)
[2017-05-09] MEDS: MORPHINE SULFATE 4mg INJECTION IVP PRN (21:54)
[2017-05-09] MEDS: SALINE FLUSH 10ml SYRINGE IVF PRN (21:54)
[2017-05-09 22:01] VITALS: BMI 20.6
[2017-05-09] MEDS: MIRTAZAPINE 15 MG SOLU-TAB PO SCH (22:28)
[2017-05-09] MEDS: DOCUSATE SODIUM 100 MG CAPSULE PO SCH (22:28)
[2017-05-09] MEDS: HYDROCODONE/APAP 5mg/325mg TABLET PO PRN (22:28)
[2017-05-09] MEDS: SERTRALINE 25 MG TABLET PO SCH (22:28)
[2017-05-09] MEDS: ASPIRIN 81 MG CHEWABLE TABLET PO SCH (22:32)
[2017-05-10] MEDS: MORPHINE SULFATE 4mg INJECTION IVP PRN ×5 (01:41→14:00)
[2017-05-10] MEDS: HYDROCODONE/APAP 5mg/325mg TABLET PO PRN ×3 (05:22→21:56)
[2017-05-10] MEDS ORDERED: NS FLUSH BAG 500ml IV PRN (05:57)
[2017-05-10] MEDS ORDERED: OMEPRAZOLE 20 MG CAPSULE PO SCH (06:30)
[2017-05-10] MEDS: FUROSEMIDE 20 MG TABLET PO SCH (11:39)
[2017-05-10] MEDS: MULTI-VITAMIN PLAIN TABLET PO SCH (11:39)
[2017-05-10] MEDS: ISOSORBIDE MONONITRATE ER 30 MG TABLET PO SCH (11:41)
[2017-05-10] MEDS: DOCUSATE SODIUM 100 MG CAPSULE PO SCH (11:53)
[2017-05-10] MEDS: REFRESH CELLUVISC 1% Eye Drops 0.4ml EACH EYE SCH (11:53)
[2017-05-10] MEDS ORDERED: MORPHINE SULFATE 2mg INJECTION IVP PRN (14:00)
[2017-05-10] MEDS: PANTOPRAZOLE 40 MG INJECTION IVP SCH ×2 (14:34→21:57)
[2017-05-10] MEDS: POLYETHYL GLYCOL 3350 17gm PACKET PO SCH (14:34)
[2017-05-10] MEDS: SALINE FLUSH 10ml SYRINGE IVF PRN ×3 (14:37→21:57)
--- NOTE | 2017-05-10 16:13 | Orthopedic Consult Note ---
Orthopedic Consultation HPI - Consultation Info Consult Date: 05/10/17 Attending Physician: Soledad Patrick MD Consult Reason: fracture - History of Present Illness 86-year-old female who fell yesterday when the wind knocked her over while she is going out of some doors. She landed on her left side and complained of left shoulder and left thigh pain yesterday. Today she complains of left arm pain and bilateral groin pain. Review of Systems - Constitutional Constitutional: Absent: chills, fever(s), night sweats - Cardiovascular Cardiovascular: Absent: chest pain, palpitations - Respiratory Respiratory: Absent: cough, dyspnea - Gastrointestinal Gastrointestinal: Absent: abdominal pain, nausea, vomiting - Genitourinary Genitourinary Female: Absent: dysuria - Musculoskeletal Musculoskeletal: Present: as per HPI - Integumentary/Breasts Integumentary: Absent: lesions, rash - Neurological Neurological: Absent: numbness, tingling PFSH Patient Stated Medical History Parkinson's Disease Yes Cataracts Yes Congestive Heart Failure Yes Hypertension Yes Valvular Heart Disease Yes: aortic valve stenosis Other Cardiology Yes: murmur Gastroesophageal Reflux Yes Disease Hx Renal Disease Yes: CHRONIC KIDNEY DISEASE Other Yes: chronic kidney disease stage 3 Other Musculoskeletal Yes: arthritis Other Infectious Yes: measels as a child Depression Yes Surgical History: Hypertectomy with bilateral oophorectomy. Cholecystecomy. Left knee arthroscopy - 04/01/1999. Medial compartment knee replacement of left knee - 06/20/2001, Dr. Soliz. Left total knee replacement - 07/18/2001. Left total knee revision - 07/20/2003, Dr. Soliz. Total joint revision of left knee - 11/25/2003, Dr. Suárez. Lumbar epidural steroid injection - 10/04/2010, Dr. Menjivar. Lumbar epidural steroid injection, 04/05/2011, Dr. Menjivar. Carotid doppler - 08/27/15 (no significant stenosis). Cataract removal - . Excision urethral caruncle/mass with meatoplasty, cystoscopy and urethral dilation - 05/19/2008. Echocardiogram - 09/20/11 (EF 55-65%, mild dysfunction, mild pulmonary hypertension with arterial pressure 40mmHg due 5to partially collapsing IVC. - Social History Smoking status: Never smoker Medications Home Medications Medication Instructions Recorded Confirmed Type Mirtazapine [Remeron] 15 mg PO HS #0 04/05/11 05/09/17 History Acetaminophen [Acetaminophen ER] 650 mg PO Q6H PRN 03/13/17 05/09/17 History Aspirin Chewable [ASA] 81 mg PO Q48H 03/13/17 05/09/17 History Carbidopa/Levodopa 1 tab PO TID 03/13/17 05/09/17 History [Carbidopa-Levodopa 25-250 Tab] Cholecalciferol [Vit. D-3] 1,000 unit PO DAILY 03/13/17 05/09/17 History Melatonin 5 mg PO HS PRN 03/13/17 05/09/17 History Multivitamin [One Daily 1 each PO DAILY 03/13/17 05/09/17 History Multivitamin] Oxybutynin Chloride 5 mg PO HS PRN 03/13/17 05/09/17 History Biotin 5 mg PO Q48H 04/17/17 05/09/17 History Docusate Sodium [Colace] 100 mg PO BID 04/17/17 05/09/17 History Furosemide [Lasix] 20 mg PO BID 05/09/17 05/09/17 History Isosorbide Mononitrate ER [Imdur] 30 mg PO QAM 05/09/17 05/09/17 History Omeprazole [Prilosec] 20 mg PO ACB 05/09/17 05/09/17 History Propylene Glycol [Lubricant Eye 1 drop EACH EYE DAILY 05/09/17 05/09/17 History Drops] Sertraline [Zoloft] 25 mg PO HS 05/09/17 05/09/17 History Allergies Allergy/AdvReac Type Severity Reaction Status Date / Time clarithromycin AdvReac Mild STOMACH Verified 05/09/17 16:48 PAIN Orthopedic Exam Vital signs: Temperature 98.1 F 05/10/17 15:16 Pulse Rate 88 05/10/17 15:54 Respiratory Rate 18 05/10/17 15:16 Blood Pressure 100/67 05/10/17 15:16 Pulse Oximetry 95 05/10/17 15:16 - Constitutional General Appearance: Present: no acute distress - Respiratory Exam Present: non-labored - Cardiovascular Exam Present: pedal pulses intact - Extremities Exam Present: edema (1+ ankle). Absent: cyanosis, clubbing - Integumentary Exam Present: pink, warm, dry - Neurological Exam Present: intact to light touch, no deficits - Psychiatric Exam Present: alert - Additional findings Additional findings: Just mild discomfort with log roll of right and left legs. She is able to actively move her arm below shoulder level. She is neurovascularly intact to her left hand. - Labs Result Diagrams: 05/10/17 04:30 05/10/17 04:30 Abnormal lab results 05/10/17 05/10/17 05/10/17 Range/Units 04:30 04:30 04:30 RBC 2.24 L (4.00-5.20) M/MM3 Hgb 6.8 L D (12-16) GM/DL Hct 21.8 L D (36-46) % MPV 9.1 L (9.4-12.4) UM3 Neut % (Auto) 78.4 H (33-66) % Lymph % (Auto) 11.5 L (23-45) % Lymph # (Auto) 0.9 L (1-4.8) T/MM3 BUN 62.0 H* (7-17) MG/DL Creatinine 2.0 H (0.7-1.2) MG/DL BUN/Creatinine Ratio 31 H (6-26) RATIO Calculated Osmolality 284 H (261-280) MOSM/KG Calcium 8.2 L (8.4-10.2) MG/DL Magnesium 2.5 H (1.6-2.3) MG/DL Crossmatch (AHG) See Detail H & H 05/10/17 Range/Units 04:30 Hgb 6.8 L D (12-16) GM/DL Hct 21.8 L D (36-46) % - Diagnostic results Hip x-ray: image reviewed Impression and Recommendation (1) Bilateral pubic rami fractures Current visit: Yes Status: Acute Because she has pain in both groins I do believe both inferior pubic rami have acute fractures. The superior rami on the right appears more chronic but difficult to know for sure. We will order inlet and outlet views now that she has try to get up with therapy to check for stability of her injuries. (2) Left arm pain Current visit: Yes Status: Acute X-rays are negative for bony injury. When likely this is from a contusion or possibly a rotator cuff tear. Recommend sling as needed for pain. Hospital Course Summary Disclaimer: The visit summary below is not to be considered part of the above Progress Note.
[2017-05-10] MEDS: MORPHINE SULFATE 2mg INJECTION IVP PRN ×2 (16:47→19:10)
[2017-05-10] MEDS: NS 1,000 ML IV SCH (19:11)
[2017-05-10] MEDS: MIRTAZAPINE 15 MG SOLU-TAB PO SCH (21:56)
[2017-05-10] MEDS: SERTRALINE 25 MG TABLET PO SCH (21:56)
[2017-05-11] MEDS: HYDROCODONE/APAP 5mg/325mg TABLET PO PRN (06:30)
[2017-05-11] MEDS: MORPHINE SULFATE 2mg INJECTION IVP PRN ×2 (06:38→08:43)
--- NOTE | 2017-05-11 08:27 | XRay Report ---
Indication: re evaluate pelvis after weighbearing PROCEDURE: XR pelvis min 3V: Encounter: Initial Comparison: May 09, 2017 Findings: Inlet view is limited due to overlapping soft tissues and exposure technique along with bony demineralization. New offset seen in the right superior pubic ramus at the pubic symphysis consistent with a mildly displaced fracture. There is also very subtle offset of the left superior pubic ramus visible on these views consistent with a nondisplaced fracture. The inferior pubic rami fractures are stable in appearance. Impression: Slight interval change in alignment of the right pubic symphysis with bilateral superior pubic rami fractures now visible. .
[2017-05-11] MEDS: ACETAMINOPHEN 325 MG TABLET PO PRN (08:43)
[2017-05-11] MEDS: REFRESH CELLUVISC 1% Eye Drops 0.4ml EACH EYE SCH (08:47)
[2017-05-11] MEDS: PANTOPRAZOLE 40 MG INJECTION IVP SCH (08:47)
[2017-05-11] MEDS: POLYETHYL GLYCOL 3350 17gm PACKET PO SCH (08:48)
[2017-05-11] MEDS: MULTI-VITAMIN PLAIN TABLET PO SCH (08:48)
[2017-05-11] MEDS: NS 1,000 ML IV SCH (08:52)
[2017-05-11] MEDS ORDERED: FUROSEMIDE 20 MG/2 ML INJECTION IVP ONE (11:24)
[2017-05-11] MEDS ORDERED: HYDROCODONE/APAP 7.5 MG/325 MG TABLET PO PRN (11:31)
--- NOTE | 2017-05-11 11:33 | Progress Note ---
- Date 05/11/17 Subjective: I was called by nursing staff and notified that the patient was having a lot of pain and possible confusion. On my arrival, the patient was sitting up in a chair and had been most of the morning. She had her legs elevated in the recliner. She stated her pain in her groin/hip area was about a 5 on a scale of 1-10. She also complained of pains behind her knees. She denied any pain elsewhere. She was oriented 3. She denied feeling short of breath. She did eat some breakfast this morning. She has a Whiteside catheter in with good urine output. Objective Vital signs: Temperature 97.6 F 05/11/17 08:00 Pulse Rate 121 H 05/11/17 08:00 Respiratory Rate 12 05/11/17 08:00 Blood Pressure 103/60 05/11/17 08:00 Pulse Oximetry 97 05/11/17 08:00 Height/Weight/BMI: Height 1.52 m Weight 47.9 kg Body Mass Index 20.6 Comments: Heart rate when I went to see the patient was in the 70s. Oximetry has been in the 90s on 2 L. GEN-alert, oriented 3, no acute distress HEENT-oropharynx is moist NECK-supple, positive JVD CV-regular rate and rhythm CHEST-crackles in the bases bilaterally ABD-soft, nontender, nondistended with positive bowel sounds -Whiteside in place with good urine output EXT-no edema, bruises on both knees NEURO-flat affect typical with Parkinson's, oriented 3 SKIN-warm and dry, multiple bruises on the legs bilaterally. Results - Labs CBC & Chem 7: 05/11/17 05:05 05/11/17 05:05 Labs: Neutrophils 79%. Hemoglobin is 8.8 up from 6.8 after 1 unit of blood yesterday Iron is low at 32 sat is borderline low at 9%. B-12 and folate are normal. BUN is 62. Creatinine 1.8. This is somewhat stable from yesterday. Assessment and Plan Assessment and Plan: Impression Bilateral pubic rami fracture-nonoperative treatment per Dr. Bowens. Weightbearing as tolerated. Acute on chronic anemia of uncertain etiology-initial Hemoccult stool was negative. Repeat Hemoccult is pending. No symptoms of GI bleed. The patient might benefit from EPO through her jig maker Iron deficiency mild Acute kidney injury on chronic kidney disease. Creatinine baseline is 1.3-1.7 and is up to 2.0 now Coronary artery disease with recent drug eluting stent placement in the past 2 weeks on dual therapy with Plavix and aspirin 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 and EF of 35-40%- mild fluid overload today on exam with JVD and crackles in the lungs. She is on 2 L. Aortic and mitral insufficiency Hypertension Parkinson's disease Severe pain due to bilateral pubic rami fracture despite receiving several doses of IV morphine Mild hypoxia, likely secondary to decreased respiratory drive with narcotics and mild fluid overload Plan Plavix was held yesterday due to acute anemia and concern for possible need for surgery. Her hemoglobin is up nicely after 1 unit of blood. Will restart Plavix now and will restart aspirin 81 mg daily for recent placement of drug-eluting cardiac stent. I spoke with Dr. Bowens earlier today and no surgery is required regarding the patient's bilateral pelvic rami fractures DC IV Protonix and restart oral omeprazole Blood pressure is borderline low, will hold off on restarting Imdur at this time. Regarding mild fluid overload, IV fluids were discontinued and we'll give 20 of Lasix IV 1 today. Tomorrow, we'll restart the patient's usual 20 of Lasix IV oral twice a day. This may need to be adjusted based on renal function. Renal function is stable today from yesterday. Overall BUN and creatinine are increased from her baseline. Will increase Mitchell to 7.5 one by mouth 3 times a day scheduled and one by mouth every 6 hours when necessary for breakthrough pain. SCDs for DVT prophylaxis Continue home medications for Parkinson's disease, depression and anxiety. Continue metoprolol. We'll give MiraLAX to try to prevent constipation with high dose narcotics. Start oral iron for iron deficiency Discussed with the patient's nurse and Dr. Bowens DVT Prophylaxis: SCD's GI Prophylaxis: other Resuscitation Status: Do Not Resuscitate - Time spent with patient Time with patient PN: 35 minutes - Physician Narrative Physician: Soledad Gooden MD Narrative: Date: 05/11/17 Time: 1129 Hospital Course Summary Disclaimer: The visit summary below is not to be considered part of the above Progress Note. Hospital Course: 05/10/2017 Plan The patient was admitted as an inpatient because of her acute bilateral pubic rami fracture requiring IV pain medication. This is also complicated by her acute blood loss anemia on chronic anemia. The cause of her acute blood loss is not known but could be in part related to bilateral pubic rami fracture. She is receiving 1 unit of blood now. Will repeat hemoglobin after this unit is given. Repeat Hemoccult stool is pending We'll start IV Protonix Discussed the patient's new worsening anemia with her kinder teacher Dr. Carey. He would prefer she stay on Plavix if at all possible and possibly hold aspirin at this time. Regarding acute kidney injury on chronic kidney disease, the patient is being given a unit of blood now. Whiteside was placed. We'll recheck basic metabolic profile after the unit of blood has completed. May need cautious IV fluids. PT, OT and Dr. Bowens orthopedic surgeon consulted regarding her pubic rami fractures SCDs for DVT prophylaxis Hold aspirin. We'll likely restart Plavix hemoglobin improving with transfusion and no signs of worsening blood loss We'll place a second IV site Patient requests to be DO NOT RESUSCITATE. Continue home medications for Parkinson's disease, depression and anxiety. Continue metoprolol. We'll give MiraLAX to try to prevent constipation with high dose narcotics. Discussed with the patient's nurse, Dr. Bowens, and Dr. Carey.
[2017-05-11] MEDS ORDERED: FERROUS SULFATE 324 MG TABLET PO SCH (11:37)
[2017-05-11] MEDS: HYDROCODONE/APAP 7.5 MG/325 MG TABLET PO SCH ×2 (18:50→22:02)
[2017-05-11] MEDS: CLOPIDOGREL 75 MG TABLET PO SCH (18:50)
[2017-05-11] MEDS: ASPIRIN 81 MG CHEWABLE TABLET PO SCH (22:02)
[2017-05-11] MEDS: MIRTAZAPINE 15 MG SOLU-TAB PO SCH (22:03)
[2017-05-11] MEDS: SERTRALINE 25 MG TABLET PO SCH (22:03)
[2017-05-12] MEDS ORDERED: IRON - PHARMACY CONSULT MC ONE (09:01)
[2017-05-12] MEDS: FUROSEMIDE 20 MG TABLET PO SCH (09:27)
[2017-05-12] MEDS: HYDROCODONE/APAP 7.5 MG/325 MG TABLET PO SCH (09:29)
[2017-05-12] MEDS: REFRESH CELLUVISC 1% Eye Drops 0.4ml EACH EYE SCH (09:30)
[2017-05-12] MEDS: CLOPIDOGREL 75 MG TABLET PO SCH (09:30)
[2017-05-12] MEDS: MULTI-VITAMIN PLAIN TABLET PO SCH (09:30)
[2017-05-12] MEDS: POLYETHYL GLYCOL 3350 17gm PACKET PO SCH (09:31)
[2017-05-12] MEDS ORDERED: IRON DEXTRAN COMPLEX 100mg/2ml INJECTION IV ONE (10:00)
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
[2017-05-12] MEDS ORDERED: NS IV SCH (12:45)
[2017-05-12] MEDS ORDERED: IRON DEXTRAN IV SCH (12:45)
--- NOTE | 2017-05-12 12:50 | Pharmacy Consult ---
Pharmacy Consult-[facility] - Laboratory Information [facility] 05/10/17 05/10/17 05/11/17 04:30 17:08 05:05 Hgb 6.8 L D 8.9 L D 8.8 L Hct 21.8 L D 27.5 L D 05/12/17 04:44 Hgb 7.8 L D Hct 25.2 L - Consult Information IV IRON CONSULT: Dx: Acute blood loss and chronic anemia: Today's hct = 25.2 Today's hgb = 7.8 Total calculated dose = 1250mg Will give test dose of 25mg IV push over 30 seconds. Watch VS q 15 minutes x 1 hr. (watching for anaphylaxis, respiratory distress, hives.) If no reaction will give full dose in NS 500ml TRA 125ml/hr. Watch VS q 1 hr during infusion. Thank you.
[2017-05-12] MEDS ORDERED: DOCUSATE SODIUM 100 MG CAPSULE PO PRN (12:53)
[2017-05-12] MEDS ORDERED: Oxycodone *IR* 5 MG TABLET PO PRN (12:58)
[2017-05-12] MEDS: PANTOPRAZOLE 40 MG TABLET PO SCH (17:31)
[2017-05-12] MEDS: MIRTAZAPINE 15 MG SOLU-TAB PO SCH (20:19)
[2017-05-12] MEDS: SERTRALINE 25 MG TABLET PO SCH (20:19)
[2017-05-13] MEDS: PANTOPRAZOLE 40 MG TABLET PO SCH ×2 (05:33→16:50)
[2017-05-13] MEDS: MULTI-VITAMIN PLAIN TABLET PO SCH (08:31)
[2017-05-13] MEDS: REFRESH CELLUVISC 1% Eye Drops 0.4ml EACH EYE SCH (08:31)
[2017-05-13] MEDS: ASPIRIN 81 MG CHEWABLE TABLET PO SCH ×2 (08:31→21:03)
[2017-05-13] MEDS: CLOPIDOGREL 75 MG TABLET PO SCH (08:31)
--- NOTE | 2017-05-13 09:42 | Progress Note ---
- Date 05/13/17 Subjective: Rossy is seen this morning in follow up for her pelvic fractures. She is seen while resting in bed and awakens easily with soft touch. She is soft spoken and complains of severe hip pain rating it more than 10/10. She denies any other complaints or concerns including no chest pain, shortness of breath, abdominal pain, nausea, vomiting or dysuria. She states that her appetite is stable but admits that she has not been eating much because she can't focus on what she is doing because her pain is so severe. She states that she has been trying to do her exercises, but again states that she is limited due to her pain. She received 1 unit of blood on 05/10. Hemoglobin decreased to 8.0. She denies any dizziness or lightheadedness. SCr trending down at 1.7 and weight is trending up. MD: Ms. Manuel was seen by me this morning. She still has a very weak voice but if you force her she can talk a little louder. She tells me she's not able to feed herself oatmeal however on senior account manager strength and push/pull she has pretty good upper extremity strength. She is not wanting to get up with physical therapy. She does not want to bear weight on her legs. We having this pubic rami fracture is going to be very difficult for her. She denies pain other than her hips and legs. She denies shortness of breath. She denies chest pain or palpitations. She denies nausea or vomiting. Objective Vital signs: Temperature 96.8 F 05/13/17 08:10 Pulse Rate 79 05/13/17 08:10 Respiratory Rate 20 05/13/17 08:10 Blood Pressure 156/64 H 05/13/17 08:10 Pulse Oximetry 93 05/13/17 08:10 Height/Weight/BMI: Height 5 ft Weight 115 lb 15.41 oz Body Mass Index 20.6 Comments: resting in bed; awakens with soft touch; soft spoken. MD: in general she is alert and in no acute distress. She is complaining of pain. Her lungs are clear but diminished. Her heart is regular. She has a 2/6 murmur with radiation to bilateral carotids. Her abdomen is soft, nontender, nondistended with positive bowel sounds. She has no lower extremity edema. She has no focal deficits - Constitutional Present: no acute distress, thin, cooperative - Routine HEENT Exam Head: Present: normocephalic, atraumatic Eye: Present: PERRL. Absent: conjunctival icterus ENT: Present: mucous membranes moist - Routine Respiratory Exam Present: decreased breath sounds, CTA bilaterally. Absent: wheezes - Routine Cardiovascular Exam Present: RRR, S1, S2, murmur (3/6) - Routine Abdominal Exam Present: soft, normoactive bowel sounds, non distended, non tender. Absent: rebound, guarding - Routine Extremities Exam Present: edema (trace), pulses intact Comments: limited ROM due to pain. - Routine Back/Spine/Pelvis Exam Back/Spine: Present: kyphosis. Absent: vertebral tenderness - Routine Musculoskeletal Exam Musculoskeletal: Present: no clubbing or cyanosis, limited range of motion - Routine Skin Exam Present: dry, warm. Absent: jaundice Comments: afebrile - Routine Neurological Exam Present: alert, moving all extremities, hearing grossly intact, normal speech ( soft spoken). Absent: facial asymmetry - Routine Lymphatic Exam Lymphatic: Absent: lymphedema - Routine Psychiatric Exam Present: cooperative Comments: appears sedated on exam. Results - Labs CBC & Chem 7: 05/13/17 03:59 05/13/17 03:59 Assessment and Plan (1) Bilateral pubic rami fractures Current visit: Yes Status: Acute Assessment and Plan: Impression and Plan - 05/13/17: 1. Bilateral pubic rami fracture-nonoperative - continue treatment per Dr. Bowens; Weightbearing as tolerated. Continue to encourage participation in PT to encourage strengthening and improvement in functional abilities. Therapies limited due to significant pain. -Will need care home 2. Acute on chronic anemia of uncertain etiology -initial Hemoccult stool was negative. BUN/Cr ratio very suggestive of GIB -Repeat Hemoccult x2 pending. Initial hemoccult negative and no symptoms of GI bleed. the patient might benefit from EPO through her peoples[employer] financials. -Iron deficiency mild - continue iron supplementation. -Protonix 40mg BID for GI protection. 3. Acute kidney injury on chronic kidney disease. -Creatinine baseline is 1.3-1.7 - trending down at 1.7 today. Continue to monitor. 4. Coronary artery disease with recent drug eluting stent placement in the past 2 weeks -continue on dual therapy with Plavix and aspirin -She is not on a statin-will start lipitor 20mg daily. -Was on Imdur at home, held here, no complaint of CP. 5. 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 and EF of 35-40% -On BBl -No DARIEN I 6. Aortic stenosis with DENIZ 1.3cm2, Mild to moderate MR, Mod TR 7. PHTN -PAP 44mmHg; May need low dose diuretics but currently will hold and assess on a daily basis. -Repeat CXR today - results pending.---MD: mild edema, may need low dose diuretics prn. 8. HTN -Reasonable control on Metoprolol succinate 25mg daily - will continue and monitor closely. 9. Parkinson's disease -continue on Sinemet 10. Severe pain due to bilateral pubic rami fracture despite receiving several doses of IV morphine -Schedule Oxycodone XR with IR for breakthrough. Try to use Tylenol 11. Mild hypoxia, likely secondary to decreased respiratory drive with narcotics -Improved -MD: Will give dose of lasix today 12. Loose stools -C. diff negative. Will decrease bowel motivation. 13. Prophylaxis -SCDs -PPI. MD: The pt was interviewed and examined by me. My documentation is as noted above. I have reviewed her notes, imaging and labs. I agree with the above PA assessment and plan. DVT Prophylaxis: SCD's GI Prophylaxis: Protonix Resuscitation Status: Do Not Resuscitate - Time spent with patient Time with patient PN: 35 minutes - Physician Narrative Physician: Radha White MD Narrative: Date: 05/13/17 Time: 0939 Hospital Course Summary Disclaimer: The visit summary below is not to be considered part of the above Progress Note. Hospital Course: 05/10/2017 Plan The patient was admitted as an inpatient because of her acute bilateral pubic rami fracture requiring IV pain medication. This is also complicated by her acute blood loss anemia on chronic anemia. The cause of her acute blood loss is not known but could be in part related to bilateral pubic rami fracture. She is receiving 1 unit of blood now. Will repeat hemoglobin after this unit is given. Repeat Hemoccult stool is pending We'll start IV Protonix Discussed the patient's new worsening anemia with her paper bundler Dr. Carey. He would prefer she stay on Plavix if at all possible and possibly hold aspirin at this time. Regarding acute kidney injury on chronic kidney disease, the patient is being given a unit of blood now. Whiteside was placed. We'll recheck basic metabolic profile after the unit of blood has completed. May need cautious IV fluids. PT, OT and Dr. Bowens orthopedic surgeon consulted regarding her pubic rami fractures SCDs for DVT prophylaxis Hold aspirin. We'll likely restart Plavix hemoglobin improving with transfusion and no signs of worsening blood loss We'll place a second IV site Patient requests to be DO NOT RESUSCITATE. Continue home medications for Parkinson's disease, depression and anxiety. Continue metoprolol. We'll give MiraLAX to try to prevent constipation with high dose narcotics. Discussed with the patient's nurse, Dr. Bowens, and Dr. Carey. Impression and Plan - 05/13/17: 1. Bilateral pubic rami fracture-nonoperative - continue treatment per Dr. Bowens; Weightbearing as tolerated. Continue to encourage participation in PT to encourage strengthening and improvement in functional abilities. Therapies limited due to significant pain. -Will need care home 2. Acute on chronic anemia of uncertain etiology -initial Hemoccult stool was negative. BUN/Cr ratio very suggestive of GIB -Repeat Hemoccult x2 pending. Initial hemoccult negative and no symptoms of GI bleed. the patient might benefit from EPO through her peoplesoft financials. -Iron deficiency mild - continue iron supplementation. -Protonix 40mg BID for GI protection. 3. Acute kidney injury on chronic kidney disease. -Creatinine baseline is 1.3-1.7 - trending down at 1.7 today. Continue to monitor. 4. Coronary artery disease with recent drug eluting stent placement in the past 2 weeks -continue on dual therapy with Plavix and aspirin -She is not on a statin-will start lipitor 20mg daily. -Was on Imdur at home, held here, no complaint of CP. 5. 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 and EF of 35-40% -On BBl -No DARIEN I 6. Aortic stenosis with DENIZ 1.3cm2, Mild to moderate MR, Mod TR 7. PHTN -PAP 44mmHg; May need low dose diuretics but currently will hold and assess on a daily basis. -Repeat CXR today - results pending. 8. HTN -Reasonable control on Metoprolol succinate 25mg daily - will continue and monitor closely. 9. Parkinson's disease -continue on Sinemet 10. Severe pain due to bilateral pubic rami fracture despite receiving several doses of IV morphine -Schedule Oxycodone XR with IR for breakthrough. Try to use Tylenol 11. Mild hypoxia, likely secondary to decreased respiratory drive with narcotics -Improved 12. Loose stools -C. diff negative. Will decrease bowel motivation. 13. Prophylaxis -SCDs -PPI.
--- NOTE | 2017-05-13 10:45 | XRay Report ---
Indication: CHF PROCEDURE: XR chest 1V: Encounter: Initial Comparison: March 15, 2017 Findings: Skinfold noted in the right upper chest. Lungs are mildly hyperinflated without focal consolidation. No pleural effusion or pneumothorax. Heart size and mediastinal contours are stable. Pulmonary vascularity remains mildly prominent. Impression: Mild edema/CHF. No focal pneumonia. .
[2017-05-13] MEDS ORDERED: FUROSEMIDE 20 MG TABLET PO ONE (13:30)
[2017-05-13] MEDS: ACETAMINOPHEN 325 MG TABLET PO PRN (14:01)
[2017-05-13] MEDS: Oxycodone *IR* 5 MG TABLET PO PRN (18:13)
[2017-05-13] MEDS: MIRTAZAPINE 15 MG SOLU-TAB PO SCH (21:04)
[2017-05-13] MEDS: SERTRALINE 25 MG TABLET PO SCH (21:04)
[2017-05-14] MEDS: PANTOPRAZOLE 40 MG TABLET PO SCH ×2 (06:02→18:10)
[2017-05-14] MEDS: ISOSORBIDE MONONITRATE ER 30 MG TABLET PO SCH (06:02)
[2017-05-14] MEDS: Oxycodone *IR* 5 MG TABLET PO PRN ×2 (08:23→23:50)
[2017-05-14] MEDS: MULTI-VITAMIN PLAIN TABLET PO SCH (08:51)
[2017-05-14] MEDS: REFRESH CELLUVISC 1% Eye Drops 0.4ml EACH EYE SCH (08:52)
[2017-05-14] MEDS: ASPIRIN 81 MG CHEWABLE TABLET PO SCH (08:52)
[2017-05-14] MEDS: CLOPIDOGREL 75 MG TABLET PO SCH (08:58)
[2017-05-14] MEDS: ACETAMINOPHEN 325 MG TABLET PO PRN (13:32)
--- NOTE | 2017-05-14 13:35 | Progress Note ---
- Date 05/14/17 Subjective: Mrs. Manuel was sitting up in her chair morning when seen. She denied dyspnea and reported she has not previously been on oxygen. She was on 1 L supplemental oxygen when seen. She denied dyspnea or cough. She does denied abdominal pain but reported minor nausea earlier today. Oral intake is limited although improved yesterday per nursing report. The patient tolerates standing and pivot transfers but ambulates minimally. Pain control is adequate per patient report. Nursing reports sediment in Whiteside catheter on the UA has been sent. Patient reports having a bowel movement earlier today but records indicate last bowel movement was yesterday. Objective Vital signs: Temperature 97.5 F 05/14/17 12:00 Pulse Rate 68 05/14/17 12:00 Respiratory Rate 16 05/14/17 12:00 Blood Pressure 130/65 05/14/17 12:00 Pulse Oximetry 92 05/14/17 12:00 I/O 1920/975 weight unchanged NAD, alert, soft-spoken with mumbled speech Conjunctiva clear, sclera anicteric Respirations nonlabored, good airflow, breath sounds clear Regular rhythm, S1-S2 Abdomen is soft, nontender, and bowel sounds are present Extremities without edema Moving upper extremities well Oriented to [facility] Height/Weight/BMI: Height 1.52 m Weight 52.5 kg Body Mass Index 20.6 Results - Labs CBC & Chem 7: 05/14/17 05:13 05/14/17 05:13 Labs: UA with trace ketones, +3 occult blood, +2 leukocyte esterase, positive nitrate , 50-200 WBC, WBC clumps, +3 bacteria Microbiology Results: Microbiology 05/14/17 11:52 Urine, Cath Whiteside Urine Culture - Preliminary Culture Initiated - Results Pending - Imaging and Cardiology Chest x-ray Status: image reviewed by me (NAD.) Assessment and Plan (1) Bilateral pubic rami fractures Current visit: Yes Status: Acute Assessment and Plan: Impression and Plan 1. Bilateral pubic rami fracture-nonoperative - continue treatment per Dr. Bowesn; Weightbearing as tolerated. Continue to encourage participation in PT to encourage strengthening and improvement in functional abilities. Pain control improved on low dose oxycodone CR. -Will need care home 2. Acute on chronic anemia of uncertain etiology -initial Hemoccult stool was negative. -Repeat Hemoccult x2 pending. Initial hemoccult negative and no symptoms of GI bleed. 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 -Iron deficient-received IV iron yesterday. -Protonix 40mg BID for GI protection. -If hemoglobin continues to drop may require reimaging pelvis to look for pelvic hematoma associated with pubic rami fractures. 3. Acute kidney injury on chronic kidney disease. -Creatinine baseline is 1.3-1.7 -creatinine at baseline although BUN remains slightly elevated-likely prerenal. -Oral intake has been poor until yesterday, IV fluids tonight and reassess renal function in a.m. 4. Coronary artery disease with recent drug eluting stent placement in the past 2 weeks -continue on dual therapy with Plavix and aspirin -She is not on a statin-will start lipitor 20mg daily. -Was on Imdur at home, held here, no complaint of CP. 5. 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 Aortic stenosis with DENIZ 1.3cm2, Mild to moderate MR, Mod TR 7. PHTN -PAP 44mmHg; May need low dose diuretics but currently will hold and assess on a daily basis. -Repeat CXR yesterday-unremarkable by my review. Anticipate resuming home dose of Lasix at discharge. 8. HTN -Reasonable control on Metoprolol succinate 25mg daily - will continue and monitor closely. 9. Parkinson's disease -continue on Sinemet 10. Severe pain due to bilateral pubic rami fracture despite receiving several doses of IV morphine -Schedule Oxycodone XR with IR for breakthrough. Try to use Tylenol 11. Mild hypoxia, likely secondary to decreased respiratory drive with narcotics -Improved, minimally ambulatory-add incentive spirometry. 12. Loose stools -C. diff negative. Discussed with nursing and case management. Nursing provide supplemental history. Chest x-ray reviewed by myself. DVT Prophylaxis: SCD's GI Prophylaxis: Protonix Resuscitation Status: Do Not Resuscitate - Physician Narrative Narrative: Date: 05/14/17 Time: 1330 Hospital Course Summary Disclaimer: The visit summary below is not to be considered part of the above Progress Note. Hospital Course: 05/10/2017 Plan The patient was admitted as an inpatient because of her acute bilateral pubic rami fracture requiring IV pain medication. This is also complicated by her acute blood loss anemia on chronic anemia. The cause of her acute blood loss is not known but could be in part related to bilateral pubic rami fracture. She is receiving 1 unit of blood now. Will repeat hemoglobin after this unit is given. Repeat Hemoccult stool is pending We'll start IV Protonix Discussed the patient's new worsening anemia with her plastics scientist Dr. Carey. He would prefer she stay on Plavix if at all possible and possibly hold aspirin at this time. Regarding acute kidney injury on chronic kidney disease, the patient is being given a unit of blood now. Whiteside was placed. We'll recheck basic metabolic profile after the unit of blood has completed. May need cautious IV fluids. PT, OT and Dr. Bowens orthopedic surgeon consulted regarding her pubic rami fractures SCDs for DVT prophylaxis Hold aspirin. We'll likely restart Plavix hemoglobin improving with transfusion and no signs of worsening blood loss We'll place a second IV site Patient requests to be DO NOT RESUSCITATE. Continue home medications for Parkinson's disease, depression and anxiety. Continue metoprolol. We'll give MiraLAX to try to prevent constipation with high dose narcotics. 05/11/17 Hemoglobin improved after 1 unit packed red blood cells yesterday, resume aspirin/Plavix due to recent placement of drug-eluting cardiac stent. Orthopedics as recommended weightbearing as tolerated for bilateral pubic rami fractures. IV fluids discontinued; Lasix IV 1 today. Renal function improving but remain above baseline. [place] 7.5 scheduled 3 times daily with additional doses as needed to improve pain control. 05/12/17 Iron studies consistent with iron deficiency-continue iron replacement. Creatinine climbing after Lasix yesterday, up to 2.1. Additional diuretics held. [place] discontinued and scheduled oxycodone CR initiated to improve pain control with OxyIR or Tylenol for breakthrough pain. 05/13/17 1. Bilateral pubic rami fracture-nonoperative - continue treatment per Dr. Bowens; Weightbearing as tolerated. Continue to encourage participation in PT to encourage strengthening and improvement in functional abilities. Therapies limited due to significant pain. -Will need care home 2. Acute on chronic anemia of uncertain etiology -initial Hemoccult stool was negative. BUN/Cr ratio very suggestive of GIB -Repeat Hemoccult x2 pending. Initial hemoccult negative and no symptoms of GI bleed. the patient might benefit from EPO through her knitting supervisor. -Iron deficiency mild - continue iron supplementation. -Protonix 40mg BID for GI protection. 3. Acute kidney injury on chronic kidney disease. -Creatinine baseline is 1.3-1.7 - trending down at 1.7 today. Continue to monitor. 4. Coronary artery disease with recent drug eluting stent placement in the past 2 weeks -continue on dual therapy with Plavix and aspirin -She is not on a statin-will start lipitor 20mg daily. -Was on Imdur at home, held here, no complaint of CP. 5. 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 and EF of 35-40% -On BBl -No DARIEN I 6. Aortic stenosis with DENIZ 1.3cm2, Mild to moderate MR, Mod TR 7. PHTN -PAP 44mmHg; May need low dose diuretics but currently will hold and assess on a daily basis. -Repeat CXR today - results pending. 8. HTN -Reasonable control on Metoprolol succinate 25mg daily - will continue and monitor closely. 9. Parkinson's disease -continue on Sinemet 10. Severe pain due to bilateral pubic rami fracture despite receiving several doses of IV morphine -Schedule Oxycodone XR with IR for breakthrough. Try to use Tylenol 11. Mild hypoxia, likely secondary to decreased respiratory drive with narcotics -Improved 12. Loose stools -C. diff negative. Will decrease bowel motivation. 05/14/17 Pain control improving with scheduled medications. Stand/pivot per nursing. Renal function improved although BUN remains above baseline-oral intake has been poor, will hydrate gently and reassess. Remains on 1 L supplemental oxygen but minimally ambulatory. Initiate incentive spirometry. Hemoglobin down slightly-may require repeat imaging of the pelvis to evaluate for hematoma.
[2017-05-14] MEDS: SALINE FLUSH 10ml SYRINGE IVF PRN (13:55)
[2017-05-14] MEDS: NS 1,000 ML IV SCH ×2 (13:55→23:04)
[2017-05-14] MEDS: MIRTAZAPINE 15 MG SOLU-TAB PO SCH (21:25)
[2017-05-14] MEDS: SERTRALINE 25 MG TABLET PO SCH (21:25)
[2017-05-15] MEDS: PANTOPRAZOLE 40 MG TABLET PO SCH ×2 (06:23→18:42)
[2017-05-15] MEDS: ISOSORBIDE MONONITRATE ER 30 MG TABLET PO SCH (08:05)
[2017-05-15] MEDS: ASPIRIN 81 MG CHEWABLE TABLET PO SCH ×2 (08:06→20:50)
[2017-05-15] MEDS: CLOPIDOGREL 75 MG TABLET PO SCH (08:06)
[2017-05-15] MEDS: MULTI-VITAMIN PLAIN TABLET PO SCH (08:06)
[2017-05-15] MEDS: REFRESH CELLUVISC 1% Eye Drops 0.4ml EACH EYE SCH (08:07)
[2017-05-15] MEDS: NS 1,000 ML IV SCH ×2 (09:15→23:57)
[2017-05-15] MEDS: SERTRALINE 25 MG TABLET PO SCH (20:50)
[2017-05-15] MEDS: MIRTAZAPINE 15 MG SOLU-TAB PO SCH (20:51)
--- NOTE | 2017-05-15 23:09 | Progress Note ---
- Date 05/15/17 Subjective: Mrs. Manuel was seen with a son and daughter at bedside at lunchtime. She reported that she's not as good as she wants to be but that pain control is improving and that she was able to stand and transfer with minimal difficulty today. She denied dyspnea, reports having some cough but not bad, some nausea and poor appetite. She was a little lightheaded earlier in the day and has not had a bowel movement for several days. Bladder training was initiated and the patient thinks she can tell when her bladder is starting to be distended but was very vague when this question was posed. Family members and patient indicate she wants to proceed with plans to go to [facility] and get stronger and that yesterday's report that she wanted to give up was just a temporary moment of feeling down due to recent events and slow progress. Objective Vital signs: Temperature 97.9 F 05/15/17 15:20 Pulse Rate 67 05/15/17 16:00 Respiratory Rate 14 05/15/17 15:20 Blood Pressure 150/70 H 05/15/17 15:20 Pulse Oximetry 100 05/15/17 15:20 NAD, alert, soft-spoken but speech is clearer today than it was yesterday Respirations nonlabored with decreased inspiratory effort, breath sounds are clear Regular rhythm, S1-S2 Abdomen soft, nontender Extremities without edema Height/Weight/BMI: Height 1.52 m Weight 52.5 kg Body Mass Index 20.6 Results - Labs CBC & Chem 7: 05/15/17 06:40 05/15/17 06:40 Microbiology Results: Microbiology 05/14/17 11:52 Urine, Cath Whiteside Urine Culture - Preliminary Escherichia coli Assessment and Plan (1) Bilateral pubic rami fractures Current visit: Yes Status: Acute Assessment and Plan: Impression/plan: 1. Bilateral pubic rami fracture-nonoperative Continue treatment per Dr. Bowens; Weightbearing as tolerated. Continue to encourage participation in PT to encourage strengthening and improvement in functional abilities. Pain control improved on low dose oxycodone CR. -Will need detention 2. Acute on chronic anemia of uncertain etiology Known iron deficiency, received IV iron on 05/13. Some component of anemia of chronic disease due to chronic renal failure. Hemoglobin stable the last 4 days. No additional interventions planned. Hemoccult negative. 3. Acute kidney injury on chronic kidney disease. Creatinine baseline is 1.3-1.7 -creatinine at baseline and BUN has improved with fluids. Discontinue fluids today, oral intake encouraged. 4. Coronary artery disease with recent drug eluting stent placement in the past 2 weeks Continue aspirin/Plavix, started on Lipitor earlier in hospital course. Imdur held due to the absence of chest pain and low normal blood pressures on admission-blood pressure higher today-may require resumption. 5. 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 and EF of 35-40% On metoprolol; no DARIEN inhibitor due to renal insufficiency. 6. Aortic stenosis with DENIZ 1.3cm2, Mild to moderate MR, Mod TR 7. PHTN PAP 44mmHg; May need low dose diuretics in the future but poor oral intake precludes initiating at this time. Previously on Lasix at home. 8. HTN Reasonable control on Metoprolol succinate 25mg daily - will continue and monitor closely. Blood pressure somewhat higher today-may require resumption of nitrate. 9. Parkinson's disease Continue Sinemet 10. Mild hypoxia, likely secondary to decreased respiratory drive with narcotics Improved, minimally ambulatory-add incentive spirometry. On room air earlier today; currently O2 sat 100% on 1 L. Encouraged to use incentive spirometer/ deep breathing exercises 11. Loose stools -C. diff negative; resolved-resume bowel regimen. Discussed with nursing and case management. Cussed with son/daughter at bedside. OT evaluation pending-anticipate discharge to [facility] tomorrow. - Physician Narrative Narrative: Date: 05/15/17 Time: 2305 Hospital Course Summary Disclaimer: The visit summary below is not to be considered part of the above Progress Note. Hospital Course: 05/10/2017 Plan The patient was admitted as an inpatient because of her acute bilateral pubic rami fracture requiring IV pain medication. This is also complicated by her acute blood loss anemia on chronic anemia. The cause of her acute blood loss is not known but could be in part related to bilateral pubic rami fracture. She is receiving 1 unit of blood now. Will repeat hemoglobin after this unit is given. Repeat Hemoccult stool is pending We'll start IV Protonix Discussed the patient's new worsening anemia with her spiritual counselor Dr. Carey. He would prefer she stay on Plavix if at all possible and possibly hold aspirin at this time. Regarding acute kidney injury on chronic kidney disease, the patient is being given a unit of blood now. Whiteside was placed. We'll recheck basic metabolic profile after the unit of blood has completed. May need cautious IV fluids. PT, OT and Dr. Bowens orthopedic surgeon consulted regarding her pubic rami fractures SCDs for DVT prophylaxis Hold aspirin. We'll likely restart Plavix hemoglobin improving with transfusion and no signs of worsening blood loss We'll place a second IV site Patient requests to be DO NOT RESUSCITATE. Continue home medications for Parkinson's disease, depression and anxiety. Continue metoprolol. We'll give MiraLAX to try to prevent constipation with high dose narcotics. 05/11/17 Hemoglobin improved after 1 unit packed red blood cells yesterday, resume aspirin/Plavix due to recent placement of drug-eluting cardiac stent. Orthopedics as recommended weightbearing as tolerated for bilateral pubic rami fractures. IV fluids discontinued; Lasix IV 1 today. Renal function improving but remain above baseline. [place] 7.5 scheduled 3 times daily with additional doses as needed to improve pain control. 05/12/17 Iron studies consistent with iron deficiency-continue iron replacement. Creatinine climbing after Lasix yesterday, up to 2.1. Additional diuretics held. [place] discontinued and scheduled oxycodone CR initiated to improve pain control with OxyIR or Tylenol for breakthrough pain. 05/13/17 1. Bilateral pubic rami fracture-nonoperative - continue treatment per Dr. Bowens; Weightbearing as tolerated. Continue to encourage participation in PT to encourage strengthening and improvement in functional abilities. Therapies limited due to significant pain. -Will need detention 2. Acute on chronic anemia of uncertain etiology -initial Hemoccult stool was negative. BUN/Cr ratio very suggestive of GIB -Repeat Hemoccult x2 pending. Initial hemoccult negative and no symptoms of GI bleed. 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 -Iron deficiency mild - continue iron supplementation. -Protonix 40mg BID for GI protection. 3. Acute kidney injury on chronic kidney disease. -Creatinine baseline is 1.3-1.7 - trending down at 1.7 today. Continue to monitor. 4. Coronary artery disease with recent drug eluting stent placement in the past 2 weeks -continue on dual therapy with Plavix and aspirin -She is not on a statin-will start lipitor 20mg daily. -Was on Imdur at home, held here, no complaint of CP. 5. 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 and EF of 35-40% -On BBl -No DARIEN I 6. Aortic stenosis with DENIZ 1.3cm2, Mild to moderate MR, Mod TR 7. PHTN -PAP 44mmHg; May need low dose diuretics but currently will hold and assess on a daily basis. -Repeat CXR today - results pending. 8. HTN -Reasonable control on Metoprolol succinate 25mg daily - will continue and monitor closely. 9. Parkinson's disease -continue on Sinemet 10. Severe pain due to bilateral pubic rami fracture despite receiving several doses of IV morphine -Schedule Oxycodone XR with IR for breakthrough. Try to use Tylenol 11. Mild hypoxia, likely secondary to decreased respiratory drive with narcotics -Improved 12. Loose stools -C. diff negative. Will decrease bowel motivation. 05/14/17 Pain control improving with scheduled medications. Stand/pivot per nursing. Renal function improved although BUN remains above baseline-oral intake has been poor, will hydrate gently and reassess. Remains on 1 L supplemental oxygen but minimally ambulatory. Initiate incentive spirometry. Hemoglobin down slightly-may require repeat imaging of the pelvis to evaluate for hematoma. 05/15/17 Doing well, hemoglobin stable; blood pressure slightly higher-may require resumption of nitrate. OT evaluation pending; patient has decided she wishes to pursue [facility] and strengthening. Hope to discharge tomorrow.
[2017-05-16] MEDS: Oxycodone *IR* 5 MG TABLET PO PRN (00:35)
[2017-05-16] MEDS: PANTOPRAZOLE 40 MG TABLET PO SCH (06:25)
[2017-05-16] MEDS: ISOSORBIDE MONONITRATE ER 30 MG TABLET PO SCH (06:25)
[2017-05-16] MEDS: POLYETHYL GLYCOL 3350 17gm PACKET PO SCH ×2 (08:51→10:11)
[2017-05-16] MEDS: REFRESH CELLUVISC 1% Eye Drops 0.4ml EACH EYE SCH (08:51)
[2017-05-16] MEDS: MULTI-VITAMIN PLAIN TABLET PO SCH (08:52)
[2017-05-16] MEDS: CLOPIDOGREL 75 MG TABLET PO SCH (08:52)
[2017-05-16] MEDS: ASPIRIN 81 MG CHEWABLE TABLET PO SCH (08:52)
[2017-05-16] MEDS ORDERED: SENNA + DOCUSATE TABLET PO SCH (09:00)
--- NOTE | 2017-05-16 11:40 | Extended Care Facility Orders ---
Admission Orders Admit to:: Nursing Home Allergies/Adverse Reactions: Allergies clarithromycin Adverse Reaction (Mild, Verified 05/09/17 16:48) STOMACH PAIN Admitting Diagnosis: Left rami fx,hip/pelvic pain,anemia Admitting Physician: Debora Joyner MD Attending Physician: Debora Joyner MD Code Status: Do Not Resuscitate Anticiapted Length of Stay: 30 days or less Rehab Potential: fair Rehab Prognosis: fair Diet: regular Wound/Incision Care: n/a May use Facility Protocol or Standing Orders: Yes May have flu vaccine: Yes Evaluations/Treatment: PT, OT Nursing Home Certification: I certify that SNF services are required to be given on an Inpatient basis because of the patients need for custodial care on a continuing basis for the condition(s) for which he/she received inpatient hospital services prior to his/her transfer to the SNF. SNF inpatient care is necessary for the following reasons Indication for Nursing Home: Med Admininistration, Other (PT, OT) - Additional Information In Event of Arrest: Do Not Start CPR Resident is Aware of Diagnosis: Yes Referrals: Ekaterina Rust MD [Primary Care Provider] - 1 Week Talha Hanna PA [Physician Dish Technician] - 2 Weeks Additional Orders: Last dose of Keflex should be the am dosing on May 19. May use sling for left shoulder/arm discomfort. Per - may be weight bearing as tolerated on all extremeties
[2017-05-16 13:11] VITALS: BP 144/65; PULSE 76; RESP 18; TEMP 97.7; O2SAT 98
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
== END 2017-05-16 14:57 | DRG 536 ==
LOC: ED 15:54 → SUATTDRO 20:50 → SRG 20:50
PROVIDERS: ADMIT Internal Medicine; ATTEND Internal Medicine

== ENCOUNTER 2017-10-25 11:01 | Inpatient (IN) ==
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
[2017-10-25] MEDS ORDERED: SALINE FLUSH 10ml SYRINGE IVF PRN (11:19)
--- NOTE | 2017-10-25 11:48 | XRay Report ---
Indication: weakness confusion cardiac eval PROCEDURE: XR chest 1V: Encounter: Initial Comparison: 05/13/2017 Findings: The examination is expiratory nature which is causing some prominence of the interstitial markings. No definite lobar consolidation or pleural effusion. There are some old rib deformities of the posterior lateral right mid to lower ribs. Trachea is midline. Mild tortuosity of the descending thoracic aorta. No subdiaphragmatic free air. Impression: Mild diffuse interstitial prominence probably accentuated by the expiratory technique. No definite lobar consolidation or pleural effusion. .
--- NOTE | 2017-10-25 11:52 | CT Scan Report ---
Indication: sudden onset altered mental status confusion elevated blood PROCEDURE: CT head/brain wo con: Encounter: Initial Comparison: 05/24/2017 Findings: There is mild prominence of the ventricles and sulci compatible with cortical atrophy. There is no mass, mass effect, or midline shift. No evidence for intracranial hemorrhage. No intra or extra-axial fluid collections. No evidence for depressed skull fracture. The included portions of the sinuses are clear. IMPRESSION: Mild cortical atrophy. No evidence for acute cortical infarct, intracranial hemorrhage, or mass. .
[2017-10-25] MEDS ORDERED: HYDRALAZINE 20 MG/ML INJECTION IVP ONE (12:02)
[2017-10-25] MEDS ORDERED: KETOROLAC 15 MG/ML INJECTION IVP ONE (14:48)
[2017-10-25] MEDS ORDERED: ACETAMINOPHEN 325 MG TABLET PO ONE (14:50)
[2017-10-25 16:21] VITALS: BMI 18.5
[2017-10-25] MEDS ORDERED: LORazepam 0.5 MG TABLET PO PRN (16:29)
[2017-10-25] MEDS ORDERED: HALOPERIDOL 5 MG/ML INJECTION IM PRN (16:29)
[2017-10-25] MEDS ORDERED: HALOPERIDOL 0.5 MG TABLET PO PRN (16:29)
[2017-10-25] MEDS ORDERED: CHLORHEXIDINE 0.12% ORAL RINSE PO PRN (16:30)
[2017-10-25] MEDS: BIOTIN 5 MG PO SCH (17:47)
[2017-10-25] MEDS: MELATONIN 5 MG TABLET PO SCH (20:10)
[2017-10-25] MEDS: SOLU PO SCH (20:12)
[2017-10-25] MEDS: MIRTAZAPINE 30 MG PO SCH (20:12)
[2017-10-26] MEDS: ACETAMINOPHEN 325 MG TABLET PO PRN (04:00)
[2017-10-26] MEDS: ISOSORBIDE MONONITRATE ER 30 MG TABLET PO SCH (06:34)
[2017-10-26] MEDS: OMEPRAZOLE 20 MG CAPSULE PO SCH (06:34)
[2017-10-26] MEDS: POLYETHYL GLYCOL 3350 17gm PACKET PO SCH (08:13)
[2017-10-26] MEDS: FUROSEMIDE 20 MG TABLET PO SCH ×2 (08:15→14:26)
[2017-10-26] MEDS: MULTI-VITAMIN PLAIN TABLET PO SCH (08:15)
[2017-10-26] MEDS: ASPIRIN *EC* 81 MG TABLET PO SCH (08:15)
[2017-10-26] MEDS: CLOPIDOGREL 75 MG TABLET PO SCH (08:16)
[2017-10-26] MEDS: DOCUSATE SODIUM 100 MG CAPSULE PO SCH (08:16)
[2017-10-26] MEDS: ARTIFICIAL TEARS 15ml EACH EYE SCH (08:16)
[2017-10-26] MEDS ORDERED: MAG-AL + SIM ORAL LIQUID 30ml PO PRN (09:10)
--- NOTE | 2017-10-26 12:38 | 24 Hour Neuropsychiatic Eval ---
Date of Admission: 10/25/17 15:35 Chief complaint: "I got real weak" History of Present Illness: Patient is an 87 y/o female who was admitted to [facility] on 10/25/17 Per ED physician: "Patient is an 87-year-old female, presents emergency room for evaluation of weakness, confusion. Patient apparently has had spells in the past where she becomes somewhat unresponsive in week, these last up to an hour. Patient has similar spell today, however this lasted more than an hour was unresponsive. EMS was called on arrival in [facility] permanent patient was responding to questions, she has no complaints except she does not feel well." On interview today, patient is oriented to date/location and easily engaged. She says she is here because "she got real weak" and that she had numbness/ tingling in her arms, but that is all she remembers. When asked about her living situation, she talks about how people of [facility] have been upsetting her. She states that a male RN helped her use the restroom and was very professional in his job, but now "she is marked" and everyone at [facility] is calling her a hussy. She endorses SI "because it hurts her a lot the way people are talking and lying about her." She denies HI, AVH. She reports sleeping well with medication and denies change in appetite. She does not feel that she is having any memory problems. Past psych hx: Patient states that she saw Dr. Montgomery at [facility] and saw a therapist named Umm Hill. She is unaware of what her diagnosis was. Per PD: "Ms. Manuel currently resides at [facility] in their health care area. Ms. Manuel has expressed, to her family that she wants to move. Kishan desires that she return to [facility]. Ms. Manuel has demonstrated paranoid thinking which has worsened over the recent months. Kishan feels she may have had some minor paranoid thinking. He reports that when his mom lived independently she would make comments, at times, feeling that people were talking about her. Kishan reports that when his mom needed more help she initially moved to [place]. She then moved in with her daughter, Nandini, in [place]. She then moved from there to [facility] in June 2017. Her son reports that her paranoia and general unhappiness played a role in all of these moves. Paranoid thinking includes believing that the staff is putting stuff in her food and water, that she has a microphone on her wheelchair and monitors in her room for staff to spy on her, that staff follow her with cameras to take pictures of her, and recently she went to a graduation alliance party and she commented that two men that were there had been sent by the senior care to follow her. Additionally, her son reports that it is common for her to pocket medication to spit out later or to hide medication in her clothing." It is noted that [facility] does follow the patient, in some capacity, in the outpatient setting. [facility] Patient Stated Medical History Parkinson's Disease Yes Cataracts Yes Dental Problems Yes: upper partial one broken tooth on the bottom Congestive Heart Failure Yes Hypertension Yes Valvular Heart Disease Yes: aortic valve stenosis Other Cardiology Yes: murmur Gastroesophageal Reflux Yes Disease Hx Renal Disease Yes: CHRONIC KIDNEY DISEASE Other Yes: chronic kidney disease stage 3 Osteoarthritis Yes Other Musculoskeletal Yes: degenration lumbar region Other Infectious Yes: measels as a child Depression Yes Clinic Medical History (Last Reviewed 05/28/17 @ 11:36 by NICKO Quiñonez) CHF (congestive heart failure) (Acute Medical) Cataracts, bilateral (Acute Medical) Constipation (Acute Medical) GERD (gastroesophageal reflux disease) (Acute Medical) HTN (hypertension) (Acute Medical) Hypoglycemia (Acute Medical) Parkinson disease (Acute Medical) Valvular heart disease (Acute Medical) Surgical History: Hypertectomy with bilateral oophorectomy. Cholecystecomy. Left knee arthroscopy - 04/01/1999. Medial compartment knee replacement of left knee - 06/20/2001, Dr. Soliz. Left total knee replacement - 07/18/2001. Left total knee revision - 07/20/2003, Dr. Soliz. Total joint revision of left knee - 11/25/2003, Dr. Suárez. Lumbar epidural steroid injection - 10/04/2010, Dr. Menjivar. Lumbar epidural steroid injection, 04/05/2011, Dr. Menjivar. Carotid doppler - 08/27/15 (no significant stenosis). Cataract removal - . Excision urethral caruncle/mass with meatoplasty, cystoscopy and urethral dilation - 05/19/2008. Echocardiogram - 09/20/11 (EF 55-65%, mild dysfunction, mild pulmonary hypertension with arterial pressure 40mmHg due 5to partially collapsing IVC. pelvic fx-05/09/2017 Family History: Family History (Last Reviewed 05/28/17 @ 11:36 by NICKO Quiñonez) Mother No problems noted. Family History Updates: No significant family history reported - Social History Smoking status: Never smoker Substance use type: does not use Alcohol intake frequency: does not drink Housing: assisted living facility Household members: none Current occupational status: retired Does patient use chewing tobacco?: No Current residence: Assisted Living Social history: Strengths: has placement, family support, willing to seek psychiatric care Ms. Manuel was born in [facility] [place] [facility] on 1930. She is currently 87 years of age. Ms. Manuel has three daughters and one son. Barbara in 2010. Nandini and Fernanda live in [place] and her son, Kishan, lives in [place]. Ms. Manuel currently resides at [facility] in their health care area. Ms. Manuel has a high school diploma. 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 When she was able she went to [employer] every day. She volunteered at the [employer] and service on the [employer]. Review of Systems All systems: reviewed and no additional remarkable complaints except as stated - EENMT Eyes: Present: other (reports having double vision at times) - Gastrointestinal Gastrointestinal: Present: abdominal pain, constipation - Psychiatric Psychiatric: Present: as per HPI Mental Status Exam Vitals: Last Vital Signs Temp 96.6 F L 10/26/17 08:17 Pulse 77 10/26/17 08:17 Resp 16 10/26/17 08:17 BP 100/57 10/26/17 08:17 Pulse Ox 100 10/26/17 08:17 Height: 1.55 m Weight: 44.5 kg - Mental Status Exam Muscle Strength/Tone: Weak Dressing: Casual Grooming: Fair Attitude: Cooperative Motor Activity: Retardation Eye Contact: Good Speech: Slowed Volume: Soft Rhythm: Appropriate Rhythm Sensory: Alert Orientation: Oriented to person, Oriented to place, Oriented to time Mood: Depressed Affect: Sad, Anxious Rate of Thoughts: Delayed Thought Organization: Circumstantial Associations: Illogical (at times) Abstract Reasoning: Poor abstract reasoning Thought Content: Delusions, Ruminations, Hopelessness, Helplessness Perception/Psychotic: Perception Normal Language: Other (some naming impairment) Fund of Knowledge: Other (believed to be decreased from baseline; will administer SLUMS) Memory: Poor-recent Suicidal Ideation: Other (endorses recent SI due to people talking about her at facility) Homicidal Ideation: Denies Insight: Impaired Judgement: Impaired Impulse Control: Fair - Laboratory Result Diagrams: 10/25/17 11:11 11/01/17 09:36 Assessment and Plan (1) Psychosis Qualifiers: Schizoaffective disorder type: unspecified Status: Acute Depressive disorder suspected as well r/o Neurocognitive disorder Agree with admission to [facility] for psychiatric evaluation and stabilization. Maintain safety and elopement precautions. On admission: CBC, CMP, TSH, UA, Vitamin B12 and folate levels Will obtain further collateral from facility, family Will request records from [facility] Have consulted hospitalist for optimization of medical comorbidities Will decrease Sinemet from 1 tab 25/100mg TID to 0.5 tab TID Monitor mood, behavior and response to treatment
--- NOTE | 2017-10-26 15:15 | History & Physical Report ---
History of Present Illness Date: 10/27/17 HPI: Patient is a 87-year-old female who is brought to the emergency room this morning for medical evaluation of confusion and weakness. Patient has had multiple episodes recently where she is "unresponsive" these last up to an hour at times. Family reported that patient had had increased paranoia and depression. Primary care recommended to [facility]. Patient was screened and accepted to the [facility] under the care of Dr. Bagley for further evaluation and treatment. CBC is overall unremarkable, chemistry panel is also unremarkable. Troponin negative, TSH 1.5. Urinalysis is normal. CT scan of the head showed mild atrophy, no acute infarct or hemorrhage. Chest x-ray shows mild diffuse interstitial prominence. No local consolidation or effusion. Patient is seen this morning for initial medical consultation during breakfast well. In the day room of the [facility] unit. Patient is alert and pleasant. Answers questions appropriately. She denies having any pain or feeling short of breath during evaluation. Her chart is reviewed extensively. Review of Systems ROS unobtainable: due to mental status Review of systems: Day denies entire review of systems. However, is unclear of the accuracy due to mental status change. Past Medical History Medical History: Medical History (Last Reviewed 05/28/17 @ 11:36 by NICKO Quiñonez) CHF (congestive heart failure) Cataracts, bilateral Constipation GERD (gastroesophageal reflux disease) HTN (hypertension) Hypoglycemia Parkinson disease Valvular heart disease Surgical History: Hypertectomy with bilateral oophorectomy. Cholecystecomy. Left knee arthroscopy - 04/01/1999. Medial compartment knee replacement of left knee - 06/20/2001, Dr. Soliz. Left total knee replacement - 07/18/2001. Left total knee revision - 07/20/2003, Dr. Soliz. Total joint revision of left knee - 11/25/2003, Dr. Suárez. Lumbar epidural steroid injection - 10/04/2010, Dr. Menjivar. Lumbar epidural steroid injection, 04/05/2011, Dr. Menjivar. Carotid doppler - 08/27/15 (no significant stenosis). Cataract removal - . Excision urethral caruncle/mass with meatoplasty, cystoscopy and urethral dilation - 05/19/2008. Echocardiogram - 09/20/11 (EF 55-65%, mild dysfunction, mild pulmonary hypertension with arterial pressure 40mmHg due 5to partially collapsing IVC. pelvic fx-05/09/2017 Family History: Father at age 63 of MS. Mother at age 91 due to old age. Fiver brothers who are . Brother #1 who at age 74, alcoholosim and of a cerebral hemorrhage. Brother #2 who at age 88 of old age. Brother # 3 who at age 11 of shock after wringer injury. Brother #4 who at age 90 of heart problems and renal failure. Sister #1 at age 68 of breast cancer. Sister #2 at age 23 of breast cancer. Sister #3 at age 93 of heart problems. Sister #4 at age 85. Nephew at age 57 of Eve Gehrig disease. Patient reports that she is . She has 2 living daughters which she reports are alive and healthy. 1 daughter is as of August 2016 at the age of 61 due to breast cancer. She also has a living son who she states has problems with his back. Family History: As Above - Social History Smoking status: Never smoker Substance use type: does not use Alcohol intake frequency: does not drink Current occupational status: retired Does patient use chewing tobacco?: No Current residence: [facility]isted [facility]) Social history: PCP - Dr. Rust. Cardio - Dr. Carey. Neuro - Dr. Shirlene Mata. Dairy Nutrition Consultant -Dr. Adrian Walker Medications Home Medications Medication Instructions Recorded Confirmed Type Carbidopa/Levodopa 1 tab PO TID 03/13/17 10/25/17 History [Carbidopa-Levodopa 25-250 Tab] Cholecalciferol [Vit. D-3] 1,000 unit PO DAILY 03/13/17 10/25/17 History Melatonin 5 mg PO HS 03/13/17 10/25/17 History Multivitamin [One Daily 1 tab PO DAILY 03/13/17 10/25/17 History Multivitamin] Biotin 5 mg PO Q2D 04/17/17 10/25/17 History Docusate Sodium [Colace] 100 mg PO DAILY 04/17/17 10/25/17 History Clopidogrel [Plavix] 75 mg PO DAILY #30 tab 04/18/17 10/25/17 Rx Metoprolol Succinate (XL) [Toprol 25 mg PO DAILY #30 tab 04/18/17 10/25/17 Rx Xl] Furosemide [Lasix 20 mg Tab] 10 mg PO BID 05/09/17 10/25/17 History Isosorbide Mononitrate ER [Imdur] 30 mg PO QAM 05/09/17 10/25/17 History Omeprazole [Prilosec] 20 mg PO ACB 05/09/17 10/25/17 History Sertraline [Zoloft] 25 mg PO HS 05/09/17 10/25/17 History PEG 3350 17gm PACKET [Miralax] 17 gm PO DAILY packet 05/16/17 10/25/17 Rx Aspirin [Adult Aspirin] 81 mg PO Q2D 10/25/17 10/25/17 History Chlorhexidine Gluconate 10 ml MM PRN PRN 10/25/17 10/25/17 History Dextran 70/Hypromellose 1 drop EACH EYE DAILY 10/25/17 10/25/17 History [Artificial Tears Eye Drops] Mirtazapine [Mirtazapine] 30 mg PO HS 10/25/17 10/25/17 History Allergies Allergy/AdvReac Type Severity Reaction Status Date / Time lisinopril Allergy Verified 10/25/17 11:14 NSAIDS (Non-Steroidal Allergy Verified 10/25/17 11:14 Anti-Inflamma clarithromycin AdvReac Mild STOMACH Verified 10/25/17 11:14 PAIN Exam Vital Signs: Temperature 96.6 F L 10/26/17 08:17 Pulse Rate 77 10/26/17 08:17 Respiratory Rate 16 10/26/17 08:17 Blood Pressure 100/57 10/26/17 08:17 Pulse Oximetry 100 10/26/17 08:17 Height/Weight/BMI: Height 1.55 m Weight 44.5 kg Body Mass Index 18.5 - Constitutional Present: no acute distress, well nourished, well developed - Routine HEENT Exam Eye: Present: EOMI ENT: Present: mucous membranes moist, dentition normal - Routine Respiratory Exam Present: CTA bilaterally. Absent: wheezes - Routine Cardiovascular Exam Present: RRR, S1, S2. Absent: murmur - Routine Abdominal Exam Present: soft, normoactive bowel sounds, non distended. 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 Hypertension chronic kidney disease-stage III GERD Constipation Plan Agree with admission to [facility] under the care of Dr. Bagley. View medical screening including labs and radiology studies. Overall, patient appears to be medically stable. Continue Sinemet for Parkinson's Her blood pressure and pulse, continue on Toprol-XL 25 daily Patient is chronically on aspirin and Plavix. Miralax daily for bowel motivation Encourage patient to participate in unit activities and provide a safe environment. Appreciate medical consultation. Hospitalist service will continue to follow maynor during her stay Will discuss further orders and plan of care with attending, Dr. Fonseca At time of discharge medical care will return to primary care provider, Barrrea - Physician Narrative Physician: Carlito Fonseca MD Narrative: Date: 10/27/17 Time: 1714 I have independently evaluated and examined this patient. I reviewed the chart, the patient's history, and the WASHING MACHINE INSTALLER/PA's documented findings as above. We discussed and formulated the assessment and plan as above with additions as below: Patient sitting in day room. Says she has had a bit of a chill and has sweater on. She c/o being on lasix. She does not know why she is on it. She has no other complaints or concerns. No concerns from nursing. NAD. CTAB. RRR with ELOINA. s/nt/nd +bs. No edema. Alert, cn II-XII grossly intact , MORLEY. Continue lasix for CHF and CKD. Monitor for edema or weight gain. EF 35-40% on 03/14/17. Sees Dr. Carey. Medically stable. Encourage activity. Supportive care per Dr. Bagley and team. Hospital Course Summary Disclaimer: The visit summary below is not to be considered part of the above Progress Note. Hospital Course: Impression Acute Psychosis Depressive disorder Parkinson's disease Congestive heart failure Aortic valve stenosis. Hypertension chronic kidney disease-stage III GERD Constipation Plan Agree with admission to [facility] under the care of Dr. Bagley. View medical screening including labs and radiology studies. Overall, patient appears to be medically stable. Continue Sinemet for Parkinson's Her blood pressure and pulse, continue on Toprol-XL 25 daily Patient is chronically on aspirin and Plavix. Miralax daily for bowel motivation Encourage patient to participate in unit activities and provide a safe environment. Appreciate medical consultation. Hospitalist service will continue to follow maynor during her stay Will discuss further orders and plan of care with attending, Dr. Fonseca At time of discharge medical care will return to primary care provider, Barrera
[2017-10-26] MEDS: MELATONIN 5 MG TABLET PO SCH (20:01)
[2017-10-26] MEDS: MIRTAZAPINE 30 MG PO SCH (20:02)
[2017-10-26] MEDS: SOLU PO SCH (20:02)
[2017-10-27] MEDS: OMEPRAZOLE 20 MG CAPSULE PO SCH (06:27)
[2017-10-27] MEDS: ISOSORBIDE MONONITRATE ER 30 MG TABLET PO SCH (06:27)
[2017-10-27] MEDS: CLOPIDOGREL 75 MG TABLET PO SCH (08:42)
[2017-10-27] MEDS: FUROSEMIDE 20 MG TABLET PO SCH ×2 (08:42→16:31)
[2017-10-27] MEDS: MULTI-VITAMIN PLAIN TABLET PO SCH (08:42)
[2017-10-27] MEDS: DOCUSATE SODIUM 100 MG CAPSULE PO SCH (08:44)
[2017-10-27] MEDS: ARTIFICIAL TEARS 15ml EACH EYE SCH (08:44)
[2017-10-27] MEDS: POLYETHYL GLYCOL 3350 17gm PACKET PO SCH (08:45)
--- NOTE | 2017-10-27 16:02 | Neuropsych Progress Note ---
[facility] Subjective Date: 10/28/17 - Sujective/Severity of Illness Medications: Acetaminophen (Tylenol) 325 - 650 mg PO Q5H PRN PRN Reason: Discomfort Last Admin: 10/26/17 04:00 Dose: 650 mg Al Hydroxide/Mg Hydroxide (Maalox Plus) 30 ml PO Q6H PRN PRN Reason: Indigestion Artificial Tears (Tears Naturale) 1 drops EACH EYE DAILY [facility] Last Admin: 10/27/17 08:44 Dose: 1 drops Aspirin (Ecotrin) 81 mg PO Q2D@0900 [facility] Last Admin: 10/26/17 08:15 Dose: 81 mg Carbidopa/Levodopa (Sinemet) 0.5 tab PO TID/E [facility] Last Admin: 10/27/17 14:10 Dose: 0.5 tab Chlorhexidine Gluconate (Peridex) 10 ml PO PRN PRN PRN Reason: PRN orders Clopidogrel Bisulfate (Plavix) 75 mg PO DAILY [facility] Last Admin: 10/27/17 08:42 Dose: 75 mg Docusate Sodium (Colace) 100 mg PO DAILY [facility] Last Admin: 10/27/17 08:44 Dose: Not Given Furosemide (Lasix 20 Mg Tab) 10 mg PO 0900,1500 [facility] Last Admin: 10/27/17 08:42 Dose: 10 mg Isosorbide Mononitrate (Imdur) 30 mg PO 0700 [facility] Last Admin: 10/27/17 06:27 Dose: 30 mg Lorazepam (Ativan) 0.5 mg PO Q6H PRN PRN Reason: Extreme agitation Lorazepam (Ativan Inj) 0.5 mg IM Q6H PRN PRN Reason: Extreme agitation Melatonin (Melatonin) 5 mg PO HS [facility] Last Admin: 10/26/17 20:01 Dose: 5 mg Metoprolol Succinate (Toprol Xl) 25 mg PO DAILY [facility] Last Admin: 10/27/17 08:42 Dose: 25 mg Mirtazapine (Remeron Solu-Tab) 30 mg PO HS [facility] Last Admin: 10/26/17 20:02 Dose: 30 mg Multivitamins (Theragran) 1 tab PO DAILY [facility] Last Admin: 10/27/17 08:42 Dose: 1 tab --Pom--Biotin 5 Mg (Capsule) 5 mg PO Q2D [facility] Last Admin: 10/25/17 17:47 Dose: Not Given Omeprazole (Prilosec) 20 mg PO ACB [facility] Last Admin: 10/27/17 06:27 Dose: 20 mg Polyethylene Glycol (Miralax) 17 gm PO DAILY [facility] Last Admin: 10/27/17 08:45 Dose: Not Given Sodium Chloride (Iv Flush) 10 - 80 ml IVF PRN PRN PRN Reason: Flushing Subjective: Patient seen and chart reviewed. Case discussed with treatment team. On interview, patient is needy and ruminative. She is less delusional than previously but worries that people at her facility may talk about her or don't give her as much as attention as she'd like. She continues to complain of "nervous episodes" where she feels tingly, tight in the chest, short of air, etc. and she is unsure of what is causing them. She cannot think of what may be making her anxious. She makes multiple quaker statements but these are probably baseline for patient. Patient denies any SI, HI or AVH. Patient denies any adverse side effects related to psychotropic medications. Nursing staff report patient can be needy and anxious at times, but otherwise has been pleasant/cooperative without significant behavioral difficulties. Patient has been adherent with medications. Patient slept 7 hours overnight. VSS. Patient is eating well. Psychotropic PRNs required in the past 24 hours: none. Start Time: 12:00 Stop Time: 12:20 Mental Status Exam Vitals: Last Vital Signs Temp 97.8 F 10/27/17 08:38 Pulse 71 10/27/17 08:38 Resp 18 10/27/17 08:38 BP 147/67 H 10/27/17 08:38 Pulse Ox 97 10/27/17 08:38 Height: 1.55 m Weight: 44.5 kg - Mental Status Exam Muscle Strength/Tone: Weak Dressing: Casual Grooming: Fair Attitude: Cooperative Motor Activity: Retardation Eye Contact: Good Speech: Slowed Volume: Soft Rhythm: Appropriate Rhythm Orientation: Oriented to person, Oriented to place, Oriented to time Mood: Anxious Affect: Sad Rate of Thoughts: Delayed Thought Organization: Circumstantial Associations: Illogical (at times) Abstract Reasoning: Poor abstract reasoning Thought Content: Delusions (decreasing in intensity), Ruminations, Hopelessness , Helplessness Perception/Psychotic: Perception Normal Language: Other (some naming impairment) Fund of Knowledge: Other (believed to be decreased from baseline; will administer SLUMS) Memory: Poor-recent Suicidal Ideation: Denies Homicidal Ideation: Denies Insight: Impaired Judgement: Impaired Impulse Control: Fair - Laboratory Result Diagrams: 10/25/17 11:11 10/25/17 11:11 Laboratory Results - last 24 hr 10/26/17 11:19 Vitamin B12 314 Folate 17.7 Assessment and Plan (1) Psychosis Qualifiers: Schizoaffective disorder type: unspecified Current visit: Yes Status: Acute Increase mirtazapine to 45mg PO q HS. Hospital Course Summary Disclaimer: The visit summary below is not to be considered part of the above Progress Note. Hospital Course: Impression Acute Psychosis Depressive disorder Parkinson's disease Congestive heart failure Aortic valve stenosis. Hypertension chronic kidney disease-stage III GERD Constipation Plan Agree with admission to [facility] under the care of Dr. Bagley. View medical screening including labs and radiology studies. Overall, patient appears to be medically stable. Continue Sinemet for Parkinson's Her blood pressure and pulse, continue on Toprol-XL 25 daily Patient is chronically on aspirin and Plavix. Miralax daily for bowel motivation Encourage patient to participate in unit activities and provide a safe environment. Appreciate medical consultation. Hospitalist service will continue to follow maynor during her stay Will discuss further orders and plan of care with attending, Dr. Fonseca At time of discharge medical care will return to primary care provider, Barrera 10/26/17 Psych: Will decrease Sinemet from 1 tab 25/100mg TID to 0.5 tab TID. 10/27/17 Psych: Increase mirtazapine to 45mg PO q HS.
[2017-10-27] MEDS: BIOTIN 5 MG PO SCH (17:13)
[2017-10-27] MEDS: MELATONIN 5 MG TABLET PO SCH (20:28)
[2017-10-27] MEDS: MIRTAZAPINE 45 MG TABLET PO SCH (20:28)
[2017-10-28] MEDS: ISOSORBIDE MONONITRATE ER 30 MG TABLET PO SCH (07:30)
[2017-10-28] MEDS: OMEPRAZOLE 20 MG CAPSULE PO SCH (07:30)
[2017-10-28] MEDS: ARTIFICIAL TEARS 15ml EACH EYE SCH (09:03)
[2017-10-28] MEDS: FUROSEMIDE 20 MG TABLET PO SCH ×2 (09:03→14:03)
[2017-10-28] MEDS: CLOPIDOGREL 75 MG TABLET PO SCH (09:04)
[2017-10-28] MEDS: MULTI-VITAMIN PLAIN TABLET PO SCH (09:04)
[2017-10-28] MEDS: DOCUSATE SODIUM 100 MG CAPSULE PO SCH ×2 (09:04→09:07)
[2017-10-28] MEDS: ASPIRIN *EC* 81 MG TABLET PO SCH (09:04)
[2017-10-28] MEDS: POLYETHYL GLYCOL 3350 17gm PACKET PO SCH ×2 (09:04→09:08)
--- NOTE | 2017-10-28 14:24 | Neuropsych Progress Note ---
[facility] Subjective Date: 10/28/17 - Sujective/Severity of Illness Medications: Acetaminophen (Tylenol) 325 - 650 mg PO Q5H PRN PRN Reason: Discomfort Last Admin: 10/26/17 04:00 Dose: 650 mg Al Hydroxide/Mg Hydroxide (Maalox Plus) 30 ml PO Q6H PRN PRN Reason: Indigestion Artificial Tears (Tears Naturale) 1 drops EACH EYE DAILY ON [facility] OF [facility] Last Admin: 10/28/17 09:03 Dose: 1 drops Aspirin (Ecotrin) 81 mg PO Q2D@0900 ON [facility] OF [facility] Last Admin: 10/28/17 09:04 Dose: 81 mg Carbidopa/Levodopa (Sinemet) 0.5 tab PO TID/E ON [facility] OF [facility] Last Admin: 10/28/17 14:01 Dose: 0.5 tab Chlorhexidine Gluconate (Peridex) 10 ml PO PRN PRN PRN Reason: PRN orders Clopidogrel Bisulfate (Plavix) 75 mg PO DAILY ON [facility] Last Admin: 10/28/17 09:04 Dose: 75 mg Docusate Sodium (Colace) 100 mg PO DAILY ON [facility] Last Admin: 10/28/17 09:07 Dose: Not Given Furosemide (Lasix 20 Mg Tab) 10 mg PO 0900,1500 ON [facility] OF [facility] Last Admin: 10/28/17 14:03 Dose: 10 mg Isosorbide Mononitrate (Imdur) 30 mg PO 0700 ON [facility] OF [facility] Last Admin: 10/28/17 07:30 Dose: 30 mg Lorazepam (Ativan) 0.5 mg PO Q6H PRN PRN Reason: Extreme agitation Lorazepam (Ativan Inj) 0.5 mg IM Q6H PRN PRN Reason: Extreme agitation Melatonin (Melatonin) 5 mg PO HS ON [facility] Last Admin: 10/27/17 20:28 Dose: 5 mg Metoprolol Succinate (Toprol Xl) 25 mg PO DAILY ON [facility] Last Admin: 10/28/17 09:04 Dose: 25 mg Mirtazapine (Remeron) 45 mg PO HS ON [facility] Last Admin: 10/27/17 20:28 Dose: 45 mg Multivitamins (Theragran) 1 tab PO DAILY [facility] Last Admin: 10/28/17 09:04 Dose: 1 tab --Pom--Biotin 5 Mg (Capsule) 5 mg PO Q2D ON [facility] Last Admin: 10/27/17 17:13 Dose: Not Given Omeprazole (Prilosec) 20 mg PO ACB ON [facility] Last Admin: 10/28/17 07:30 Dose: 20 mg Polyethylene Glycol (Miralax) 17 gm PO DAILY ON [facility] Last Admin: 10/28/17 09:08 Dose: Not Given Sodium Chloride (Iv Flush) 10 - 80 ml IVF PRN PRN PRN Reason: Flushing Subjective: Patient seen and chart reviewed. Case discussed with treatment team. On interview, patient reports her mood is okay but she continues to have anxiety. Responds well to reassurance re: med changes. Patient denies any SI, HI or AVH. Patient denies any adverse side effects related to psychotropic medications. Nursing staff report patient can be needy and anxious at times, but otherwise has been pleasant/cooperative without significant behavioral difficulties. Patient has been adherent with medications. Patient slept 7.75 hours overnight. VSS. Patient is eating well. Psychotropic PRNs required in the past 24 hours: none. Start Time: 09:20 Stop Time: 09:40 Mental Status Exam Vitals: Last Vital Signs Temp 97.2 F 10/28/17 09:00 Pulse 80 10/28/17 09:00 Resp 16 10/28/17 09:00 BP 143/75 H 10/28/17 09:00 Pulse Ox 99 10/28/17 09:00 Height: 1.55 m Weight: 44.5 kg - Mental Status Exam Muscle Strength/Tone: Weak Dressing: Casual Grooming: Fair Attitude: Cooperative Motor Activity: Retardation Eye Contact: Good Speech: Slowed Volume: Soft Rhythm: Appropriate Rhythm Orientation: Oriented to person, Oriented to place, Oriented to time Mood: Anxious Affect: Sad Rate of Thoughts: Delayed Thought Organization: Circumstantial Associations: Illogical (at times) Abstract Reasoning: Poor abstract reasoning Thought Content: Delusions (decreasing in intensity), Ruminations, Hopelessness , Helplessness Perception/Psychotic: Perception Normal Language: Other (some naming impairment) Fund of Knowledge: Other (believed to be decreased from baseline; will administer SLUMS) Memory: Poor-recent Suicidal Ideation: Denies Homicidal Ideation: Denies Insight: Impaired Judgement: Impaired Impulse Control: Fair - Laboratory Result Diagrams: 10/25/17 11:11 10/25/17 11:11 Assessment and Plan (1) Psychosis Qualifiers: Schizoaffective disorder type: unspecified Current visit: Yes Status: Acute Continue current care (recently increased mirtazapine); monitor response. Hospital Course Summary Disclaimer: The visit summary below is not to be considered part of the above Progress Note. Hospital Course: Impression Acute Psychosis Depressive disorder Parkinson's disease Congestive heart failure Aortic valve stenosis. Hypertension chronic kidney disease-stage III GERD Constipation Plan Agree with admission to [facility] unit under the care of Dr. Bagley. View medical screening including labs and radiology studies. Overall, patient appears to be medically stable. Continue Sinemet for Parkinson's Her blood pressure and pulse, continue on Toprol-XL 25 daily Patient is chronically on aspirin and Plavix. Miralax daily for bowel motivation Encourage patient to participate in unit activities and provide a safe environment. Appreciate medical consultation. Hospitalist service will continue to follow maynor during her stay Will discuss further orders and plan of care with attending, Dr. Fonseca At time of discharge medical care will return to primary care provider, Barrera 10/26/17 Psych: Will decrease Sinemet from 1 tab 25/100mg TID to 0.5 tab TID. 10/27/17 Psych: Increase mirtazapine to 45mg PO q HS. 10/28/17 Psych: Continue current care (recently increased mirtazapine); monitor response.
[2017-10-28] MEDS: MIRTAZAPINE 45 MG TABLET PO SCH (19:42)
[2017-10-28] MEDS: MELATONIN 5 MG TABLET PO SCH (19:42)
[2017-10-29] MEDS: MIRTAZAPINE 45 MG TABLET PO SCH ×2 (03:11→20:25)
[2017-10-29] MEDS: MELATONIN 5 MG TABLET PO SCH ×2 (03:11→20:25)
[2017-10-29] MEDS: ISOSORBIDE MONONITRATE ER 30 MG TABLET PO SCH (09:39)
[2017-10-29] MEDS: OMEPRAZOLE 20 MG CAPSULE PO SCH (09:40)
[2017-10-29] MEDS: DOCUSATE SODIUM 100 MG CAPSULE PO SCH (09:41)
[2017-10-29] MEDS: ARTIFICIAL TEARS 15ml EACH EYE SCH ×2 (09:41→09:50)
[2017-10-29] MEDS: MULTI-VITAMIN PLAIN TABLET PO SCH (09:41)
[2017-10-29] MEDS: FUROSEMIDE 20 MG TABLET PO SCH ×2 (09:41→15:48)
[2017-10-29] MEDS: CLOPIDOGREL 75 MG TABLET PO SCH (09:42)
[2017-10-29] MEDS: POLYETHYL GLYCOL 3350 17gm PACKET PO SCH (09:49)
[2017-10-29] MEDS: BIOTIN 5 MG PO SCH (18:10)
--- NOTE | 2017-10-29 21:07 | Neuropsych Progress Note ---
[facility] Subjective Date: 10/30/17 - Sujective/Severity of Illness Medications: Acetaminophen (Tylenol) 325 - 650 mg PO Q5H PRN PRN Reason: Discomfort Last Admin: 10/26/17 04:00 Dose: 650 mg Al Hydroxide/Mg Hydroxide (Maalox Plus) 30 ml PO Q6H PRN PRN Reason: Indigestion Artificial Tears (Tears Naturale) 1 drops EACH EYE DAILY [facility] Last Admin: 10/29/17 09:50 Dose: Not Given Aspirin (Ecotrin) 81 mg PO Q2D@0900 [facility] Last Admin: 10/28/17 09:04 Dose: 81 mg Carbidopa/Levodopa (Sinemet) 0.5 tab PO TID/E [facility] Last Admin: 10/29/17 20:24 Dose: 0.5 tab Chlorhexidine Gluconate (Peridex) 10 ml PO PRN PRN PRN Reason: PRN orders Clopidogrel Bisulfate (Plavix) 75 mg PO DAILY [facility] Last Admin: 10/29/17 09:42 Dose: 75 mg Docusate Sodium (Colace) 100 mg PO DAILY [facility] Last Admin: 10/29/17 09:41 Dose: 100 mg Furosemide (Lasix 20 Mg Tab) 10 mg PO 0900,1500 [facility] Last Admin: 10/29/17 15:48 Dose: 10 mg Isosorbide Mononitrate (Imdur) 30 mg PO 0700 [facility] Last Admin: 10/29/17 09:39 Dose: 30 mg Lorazepam (Ativan) 0.5 mg PO Q6H PRN PRN Reason: Extreme agitation Lorazepam (Ativan Inj) 0.5 mg IM Q6H PRN PRN Reason: Extreme agitation Melatonin (Melatonin) 5 mg PO HS [facility] Last Admin: 10/29/17 20:25 Dose: 5 mg Metoprolol Succinate (Toprol Xl) 25 mg PO DAILY [facility] Last Admin: 10/29/17 09:41 Dose: 25 mg Mirtazapine (Remeron) 45 mg PO HS [facility] Last Admin: 10/29/17 20:25 Dose: 45 mg Multivitamins (Theragran) 1 tab PO DAILY [facility] Last Admin: 10/29/17 09:41 Dose: 1 tab --Pom--Biotin 5 Mg (Capsule) 5 mg PO Q2D [facility] Last Admin: 10/29/17 18:10 Dose: Not Given Omeprazole (Prilosec) 20 mg PO ACB [facility] Last Admin: 10/29/17 09:40 Dose: 20 mg Polyethylene Glycol (Miralax) 17 gm PO DAILY [facility] Last Admin: 10/29/17 09:49 Dose: Not Given Sodium Chloride (Iv Flush) 10 - 80 ml IVF PRN PRN PRN Reason: Flushing Subjective: Patient seen and chart reviewed. Case discussed with treatment team. On interview, patient reports her mood is o"pretty good" but has various complaints about staff, mostly not paying enough attention to her. She makes an odd statement about having difficulty sleeping "because of fumes in her room." Nursing staff report that patient slept 9.75 hours overnight. Patient denies any SI, HI or AVH. Patient denies any adverse side effects related to psychotropic medications. Nursing staff report patient can be needy and anxious at times, but otherwise has been pleasant/cooperative without significant behavioral difficulties. Patient has been adherent with medications. Patient slept 9.75 hours overnight. VSS. Patient is eating well. Psychotropic PRNs required in the past 24 hours: none. Start Time: 17:40 Stop Time: 18:00 Mental Status Exam Vitals: Last Vital Signs Temp 97.8 F 10/29/17 20:44 Pulse 74 10/29/17 20:44 Resp 20 10/29/17 20:44 BP 143/71 H 10/29/17 20:44 Pulse Ox 99 10/29/17 20:44 Height: 1.55 m Weight: 44.5 kg - Mental Status Exam Muscle Strength/Tone: Weak Dressing: Casual Grooming: Fair Attitude: Cooperative Motor Activity: Retardation Eye Contact: Good Speech: Slowed Volume: Soft Rhythm: Appropriate Rhythm Sensory: Alert Orientation: Oriented to person, Oriented to place, Oriented to time Mood: Anxious Affect: Relaxed Rate of Thoughts: Delayed Thought Organization: Circumstantial Associations: Intact Abstract Reasoning: Poor abstract reasoning Thought Content: Delusions (decreasing in intensity), Ruminations Perception/Psychotic: Perception Normal Language: Other (some naming impairment) Fund of Knowledge: Other (believed to be decreased from baseline; will administer SLUMS) Memory: Poor-recent Suicidal Ideation: Denies Homicidal Ideation: Denies Insight: Impaired Judgement: Impaired Impulse Control: Fair - Laboratory Result Diagrams: 10/25/17 11:11 10/25/17 11:11 Assessment and Plan (1) Psychosis Qualifiers: Schizoaffective disorder type: unspecified Current visit: Yes Status: Acute (2) Parkinson's disease Current visit: No Status: Chronic Continue current care as patient is improving. Hospital Course Summary Disclaimer: The visit summary below is not to be considered part of the above Progress Note. Hospital Course: Impression Acute Psychosis Depressive disorder Parkinson's disease Congestive heart failure Aortic valve stenosis. Hypertension chronic kidney disease-stage III GERD Constipation Plan Agree with admission to [facility] unit under the care of Dr. Bagley. View medical screening including labs and radiology studies. Overall, patient appears to be medically stable. Continue Sinemet for Parkinson's Her blood pressure and pulse, continue on Toprol-XL 25 daily Patient is chronically on aspirin and Plavix. Miralax daily for bowel motivation Encourage patient to participate in unit activities and provide a safe environment. Appreciate medical consultation. Hospitalist service will continue to follow maynor during her stay Will discuss further orders and plan of care with attending, Dr. Fonseca At time of discharge medical care will return to primary care provider, Barrera 10/26/17 Psych: Will decrease Sinemet from 1 tab 25/100mg TID to 0.5 tab TID. 10/27/17 Psych: Increase mirtazapine to 45mg PO q HS. 10/28/17 Psych: Continue current care (recently increased mirtazapine); monitor response. 10/29/17 Psych: Continue current care as patient is improving.
[2017-10-30] MEDS: ARTIFICIAL TEARS 15ml EACH EYE SCH (08:12)
[2017-10-30] MEDS: CLOPIDOGREL 75 MG TABLET PO SCH (08:13)
[2017-10-30] MEDS: MULTI-VITAMIN PLAIN TABLET PO SCH (08:13)
[2017-10-30] MEDS: DOCUSATE SODIUM 100 MG CAPSULE PO SCH (08:13)
[2017-10-30] MEDS: ISOSORBIDE MONONITRATE ER 30 MG TABLET PO SCH (08:13)
[2017-10-30] MEDS: POLYETHYL GLYCOL 3350 17gm PACKET PO SCH (08:13)
[2017-10-30] MEDS: FUROSEMIDE 20 MG TABLET PO SCH ×2 (08:14→14:47)
[2017-10-30] MEDS: OMEPRAZOLE 20 MG CAPSULE PO SCH (08:17)
[2017-10-30] MEDS: ASPIRIN *EC* 81 MG TABLET PO SCH (08:17)
[2017-10-30] MEDS: MELATONIN 5 MG TABLET PO SCH (21:30)
[2017-10-30] MEDS: MIRTAZAPINE 45 MG TABLET PO SCH (21:30)
--- NOTE | 2017-10-30 22:51 | Neuropsych Progress Note ---
[facility] Subjective Date: 10/31/17 - Sujective/Severity of Illness Medications: Acetaminophen (Tylenol) 325 - 650 mg PO Q5H PRN PRN Reason: Discomfort Last Admin: 10/26/17 04:00 Dose: 650 mg Al Hydroxide/Mg Hydroxide (Maalox Plus) 30 ml PO Q6H PRN PRN Reason: Indigestion Artificial Tears (Tears Naturale) 1 drops EACH EYE DAILY [facility] Last Admin: 10/30/17 08:12 Dose: 1 drops Aspirin (Ecotrin) 81 mg PO Q2D@0900 [facility] Last Admin: 10/30/17 08:17 Dose: 81 mg Carbidopa/Levodopa (Sinemet) 0.5 tab PO TID/E [facility] Last Admin: 10/30/17 21:29 Dose: 0.5 tab Chlorhexidine Gluconate (Peridex) 10 ml PO PRN PRN PRN Reason: PRN orders Clopidogrel Bisulfate (Plavix) 75 mg PO DAILY [facility] Last Admin: 10/30/17 08:13 Dose: 75 mg Docusate Sodium (Colace) 100 mg PO DAILY [facility] Last Admin: 10/30/17 08:13 Dose: 100 mg Furosemide (Lasix 20 Mg Tab) 10 mg PO 0900,1500 [facility] Last Admin: 10/30/17 14:47 Dose: 10 mg Isosorbide Mononitrate (Imdur) 30 mg PO 0700 [facility] Last Admin: 10/30/17 08:13 Dose: 30 mg Lorazepam (Ativan) 0.5 mg PO Q6H PRN PRN Reason: Extreme agitation Lorazepam (Ativan Inj) 0.5 mg IM Q6H PRN PRN Reason: Extreme agitation Melatonin (Melatonin) 5 mg PO HS [facility] Last Admin: 10/30/17 21:30 Dose: 5 mg Metoprolol Succinate (Toprol Xl) 25 mg PO DAILY [facility] Last Admin: 10/30/17 08:13 Dose: 25 mg Mirtazapine (Remeron) 45 mg PO HS [facility] Last Admin: 10/30/17 21:30 Dose: 45 mg Multivitamins (Theragran) 1 tab PO DAILY [facility] Last Admin: 10/30/17 08:13 Dose: 1 tab Omeprazole (Prilosec) 20 mg PO ACB [facility] Last Admin: 10/30/17 08:17 Dose: 20 mg Polyethylene Glycol (Miralax) 17 gm PO DAILY [facility] Last Admin: 10/30/17 08:13 Dose: 17 gm Sodium Chloride (Iv Flush) 10 - 80 ml IVF PRN PRN PRN Reason: Flushing Subjective: Patient seen and chart reviewed. Case discussed with treatment team. On interview, patient reports her mood is "pretty good" but has various complaints about staff, mostly not paying enough attention to her. She admits that it is hard to be dependent on others now as she was always active. She makes orthodox statements at times and has behaviors such as making a cross sign prior to taking meds, but these have not been problematic. Patient denies any SI, HI or AVH. Patient denies any adverse side effects related to psychotropic medications. Nursing staff report patient can be needy and anxious at times, but otherwise has been pleasant/cooperative without significant behavioral difficulties. Patient has been adherent with medications. Patient slept 6.5 hours overnight. VSS. Patient is eating well. Psychotropic PRNs required in the past 24 hours: none. Start Time: 14:00 Stop Time: 14:20 Mental Status Exam Vitals: Last Vital Signs Temp 97.2 F 10/30/17 20:43 Pulse 76 10/30/17 20:43 Resp 18 10/30/17 20:43 BP 93/63 10/30/17 20:43 Pulse Ox 99 10/30/17 20:43 Height: 1.55 m Weight: 44.5 kg - Mental Status Exam Muscle Strength/Tone: Weak Dressing: Casual Grooming: Fair Attitude: Cooperative Motor Activity: Retardation Eye Contact: Good Speech: Slowed Volume: Soft Rhythm: Appropriate Rhythm Orientation: Oriented to person, Oriented to place, Oriented to time Mood: Anxious Affect: Anxious Rate of Thoughts: Delayed Thought Organization: Circumstantial Associations: Intact Abstract Reasoning: Poor abstract reasoning Thought Content: Ruminations, Somatic Concerns Perception/Psychotic: Perception Normal Language: Other (some naming impairment) Fund of Knowledge: Other (believed to be decreased from baseline; will administer SLUMS) Memory: Poor-recent Suicidal Ideation: Denies Homicidal Ideation: Denies Insight: Impaired Judgement: Impaired Impulse Control: Fair - Laboratory Result Diagrams: 10/25/17 11:11 10/25/17 11:11 Assessment and Plan (1) Psychosis Qualifiers: Schizoaffective disorder type: unspecified Current visit: Yes Status: Acute (2) Parkinson's disease Current visit: No Status: Chronic Continue current care; discussing discharge arrangements with facility. Hospital Course Summary Disclaimer: The visit summary below is not to be considered part of the above Progress Note. Hospital Course: Impression Acute Psychosis Depressive disorder Parkinson's disease Congestive heart failure Aortic valve stenosis. Hypertension chronic kidney disease-stage III GERD Constipation Plan Agree with admission to [facility] unit under the care of Dr. Bagley. View medical screening including labs and radiology studies. Overall, patient appears to be medically stable. Continue Sinemet for Parkinson's Her blood pressure and pulse, continue on Toprol-XL 25 daily Patient is chronically on aspirin and Plavix. Miralax daily for bowel motivation Encourage patient to participate in unit activities and provide a safe environment. Appreciate medical consultation. Hospitalist service will continue to follow maynor during her stay Will discuss further orders and plan of care with attending, Dr. Fonseca At time of discharge medical care will return to primary care provider, Barrera 10/26/17 Psych: Will decrease Sinemet from 1 tab 25/100mg TID to 0.5 tab TID. 10/27/17 Psych: Increase mirtazapine to 45mg PO q HS. 10/28/17 Psych: Continue current care (recently increased mirtazapine); monitor response. 10/29/17 Psych: Continue current care as patient is improving. 10/30/17 Psych: Continue current care.
[2017-10-30] MEDS: ACETAMINOPHEN 325 MG TABLET PO PRN (23:54)
[2017-10-31] MEDS: OMEPRAZOLE 20 MG CAPSULE PO SCH ×2 (05:53→08:12)
[2017-10-31] MEDS: ISOSORBIDE MONONITRATE ER 30 MG TABLET PO SCH ×2 (05:53→08:12)
[2017-10-31] MEDS: ARTIFICIAL TEARS 15ml EACH EYE SCH ×2 (08:41→09:12)
[2017-10-31] MEDS: DOCUSATE SODIUM 100 MG CAPSULE PO SCH ×2 (08:42→08:56)
[2017-10-31] MEDS: CLOPIDOGREL 75 MG TABLET PO SCH (08:42)
[2017-10-31] MEDS: MULTI-VITAMIN PLAIN TABLET PO SCH (08:45)
[2017-10-31] MEDS: POLYETHYL GLYCOL 3350 17gm PACKET PO SCH (08:45)
[2017-10-31] MEDS: FUROSEMIDE 20 MG TABLET PO SCH ×2 (08:49→14:28)
--- NOTE | 2017-10-31 10:40 | Neuropsych Progress Note ---
[facility] Subjective Date: 10/31/17 - Sujective/Severity of Illness Medications: Acetaminophen (Tylenol) 325 - 650 mg PO Q5H PRN PRN Reason: Discomfort Last Admin: 10/30/17 23:54 Dose: 650 mg Al Hydroxide/Mg Hydroxide (Maalox Plus) 30 ml PO Q6H PRN PRN Reason: Indigestion Artificial Tears (Tears Naturale) 1 drops EACH EYE DAILY [facility] Last Admin: 10/31/17 09:12 Dose: Not Given Aspirin (Ecotrin) 81 mg PO Q2D@0900 [facility] Last Admin: 10/30/17 08:17 Dose: 81 mg Carbidopa/Levodopa (Sinemet) 0.5 tab PO TID/E [facility] Last Admin: 10/31/17 08:12 Dose: 0.5 tab Chlorhexidine Gluconate (Peridex) 10 ml PO PRN PRN PRN Reason: PRN orders Clopidogrel Bisulfate (Plavix) 75 mg PO DAILY [facility] Last Admin: 10/31/17 08:42 Dose: 75 mg Docusate Sodium (Colace) 100 mg PO DAILY [facility] Last Admin: 10/31/17 08:56 Dose: Not Given Furosemide (Lasix 20 Mg Tab) 10 mg PO 0900,1500 [facility] Last Admin: 10/31/17 08:49 Dose: 10 mg Isosorbide Mononitrate (Imdur) 30 mg PO 0700 [facility] Last Admin: 10/31/17 08:12 Dose: 30 mg Lorazepam (Ativan) 0.5 mg PO Q6H PRN PRN Reason: Extreme agitation Lorazepam (Ativan Inj) 0.5 mg IM Q6H PRN PRN Reason: Extreme agitation Melatonin (Melatonin) 5 mg PO HS [facility] Last Admin: 10/30/17 21:30 Dose: 5 mg Metoprolol Succinate (Toprol Xl) 25 mg PO DAILY [facility] Last Admin: 10/31/17 08:44 Dose: Not Given Mirtazapine (Remeron) 45 mg PO HS [facility] Last Admin: 10/30/17 21:30 Dose: 45 mg Multivitamins (Theragran) 1 tab PO DAILY [facility] Last Admin: 10/31/17 08:45 Dose: 1 tab Omeprazole (Prilosec) 20 mg PO ACB [facility] Last Admin: 10/31/17 08:12 Dose: 20 mg Polyethylene Glycol (Miralax) 17 gm PO DAILY [facility] Last Admin: 10/31/17 08:45 Dose: 17 gm Sodium Chloride (Iv Flush) 10 - 80 ml IVF PRN PRN PRN Reason: Flushing Subjective: Patient seen and chart reviewed. Case discussed with treatment team. Patient is sleeping at time of rounds. She was awake this morning and complained of feeling nauseous, but then has been more sleepy this morning per staff. Nursing staff report patient can be needy and anxious at times, but otherwise has been pleasant/cooperative without significant behavioral difficulties. Patient has been adherent with medications. Patient woke up overnight requesting lemon Oreos as she does at home per her report. VSS. Patient is eating well. Psychotropic PRNs required in the past 24 hours: none. Start Time: 09:20 Stop Time: 09:40 Mental Status Exam Vitals: Last Vital Signs Temp 97.0 F 10/31/17 08:00 Pulse 81 10/31/17 08:00 Resp 14 10/31/17 08:00 BP 174/72 H 10/31/17 08:00 Pulse Ox 100 10/31/17 08:00 Height: 1.55 m Weight: 44.5 kg - Mental Status Exam Muscle Strength/Tone: Weak Dressing: Casual Grooming: Fair Attitude: Cooperative Motor Activity: Retardation Eye Contact: Good Speech: Slowed Volume: Soft Rhythm: Appropriate Rhythm Orientation: Oriented to person, Oriented to place, Oriented to time Mood: Other (currently sleeping) Rate of Thoughts: Delayed Thought Organization: Circumstantial Associations: Intact Abstract Reasoning: Poor abstract reasoning Thought Content: Ruminations, Somatic Concerns Perception/Psychotic: Perception Normal Language: Other (some naming impairment) Fund of Knowledge: Other (believed to be decreased from baseline; will administer SLUMS) Memory: Poor-recent Suicidal Ideation: Denies Homicidal Ideation: Denies Insight: Impaired Judgement: Impaired Impulse Control: Fair - Laboratory Result Diagrams: 10/25/17 11:11 10/25/17 11:11 Assessment and Plan (1) Psychosis Qualifiers: Schizoaffective disorder type: unspecified Current visit: Yes Status: Acute (2) Parkinson's disease Current visit: No Status: Chronic Will decrease mirtazapine back to 30mg PO q HS in case it could be contributing to nausea; monitor response. Continuing to discuss discharge plans with patient. Hospital Course Summary Disclaimer: The visit summary below is not to be considered part of the above Progress Note. Hospital Course: Impression Acute Psychosis Depressive disorder Parkinson's disease Congestive heart failure Aortic valve stenosis. Hypertension chronic kidney disease-stage III GERD Constipation Plan Agree with admission to [facility] unit under the care of Dr. Bagley. View medical screening including labs and radiology studies. Overall, patient appears to be medically stable. Continue Sinemet for Parkinson's Her blood pressure and pulse, continue on Toprol-XL 25 daily Patient is chronically on aspirin and Plavix. Miralax daily for bowel motivation Encourage patient to participate in unit activities and provide a safe environment. Appreciate medical consultation. Hospitalist service will continue to follow maynor during her stay Will discuss further orders and plan of care with attending, Dr. Fonseca At time of discharge medical care will return to primary care provider, Barrera 10/26/17 Psych: Will decrease Sinemet from 1 tab 25/100mg TID to 0.5 tab TID. 10/27/17 Psych: Increase mirtazapine to 45mg PO q HS. 10/28/17 Psych: Continue current care (recently increased mirtazapine); monitor response. 10/29/17 Psych: Continue current care as patient is improving. 10/30/17 Psych: Continue current care. 10/31/17 Psych: Will decrease mirtazapine back to 30mg PO q HS in case it could be contributing to nausea; monitor response. Continuing to discuss discharge plans with patient.
--- NOTE | 2017-10-31 10:46 | Neuropsychiatric Disch Summary ---
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 Hypertension chronic kidney disease-stage III GERD Constipation Date of Admission: 10/25/17 15:35 History of Present Illness: Patient is an 87 y/o female who was admitted to [facility] on 10/25/17 Per ED physician: "Patient is an 87-year-old female, presents emergency room for evaluation of weakness, confusion. Patient apparently has had spells in the past where she becomes somewhat unresponsive in week, these last up to an hour. Patient has similar spell today, however this lasted more than an hour was unresponsive. EMS was called on arrival in [facility] permanent patient was responding to questions, she has no complaints except she does not feel well." On interview today, patient is oriented to date/location and easily engaged. She says she is here because "she got real weak" and that she had numbness/ tingling in her arms, but that is all she remembers. When asked about her living situation, she talks about how people of [facility] have been upsetting her. She states that a male RN helped her use the restroom and was very professional in his job, but now "she is marked" and everyone at [facility] is calling her a hussy. She endorses SI "because it hurts her a lot the way people are talking and lying about her." She denies HI, AVH. She reports sleeping well with medication and denies change in appetite. She does not feel that she is having any memory problems. Past psych hx: Patient states that she saw Dr. Montgomery at [facility] and saw a therapist named Umm [facility]. She is unaware of what her diagnosis was. Hospital Course This is a general summary of the patient's hospital course. For more details refer to the complete medical record. Hospital course: Impression Acute Psychosis Depressive disorder Parkinson's disease Congestive heart failure Aortic valve stenosis. Hypertension chronic kidney disease-stage III GERD Constipation Plan Agree with admission to [facility] under the care of Dr. Bagley. View medical screening including labs and radiology studies. Overall, patient appears to be medically stable. Continue Sinemet for Parkinson's Her blood pressure and pulse, continue on Toprol-XL 25 daily Patient is chronically on aspirin and Plavix. Miralax daily for bowel motivation Encourage patient to participate in unit activities and provide a safe environment. Appreciate medical consultation. Hospitalist service will continue to follow seannet during her stay Will discuss further orders and plan of care with attending, Dr. Fonseca At time of discharge medical care will return to primary care provider, Barrera 10/26/17 Psych: Will decrease Sinemet from 1 tab 25/100mg TID to 0.5 tab TID. 10/27/17 Psych: Increase mirtazapine to 45mg PO q HS. 10/28/17 Psych: Continue current care (recently increased mirtazapine); monitor response. 10/29/17 Psych: Continue current care as patient is improving. 10/30/17 Psych: Continue current care. 10/31/17 Psych: Will decrease mirtazapine back to 30mg PO q HS in case it could be contributing to nausea; monitor response. Continuing to discuss discharge plans with patient. Resuscitation Status: Do Not Resuscitate Discharge Plan - Med Rec/Dispo Referrals/Follow Up: [facility] [Provider Group] (Umm Hill, [facility] will see patient on rounds at the facility for Mental Health Therapy. ) Ekaterina Rust MD [Primary Care Provider] - (Dr. Lyndsay Rust on 11/14/17 at 2:30 pm for Hosp. follow-up. [address] [place] [address]) Additional Instructions: Discharge Diagnosis: Substance-induced psychosis (resolved) Parkinson's disease r/o Personality disorder NOS Reasons for Admission: Not happy, paranoia, thinks [facility] staff follow her around with a camera, and anxiety. IN CASE OF PSYCHIATRIC EMERGENCY, CONTACT [facility] STAFF AT [phone] ( available 24 hrs daily) Prescriptions: New Carbidopa/Levodopa 25/250 MG [Sinemet] 0.5 tab PO TID/E tab Cyanocobalamin (B-12) [Vit. B-12] 1,000 mcg PO DAILY tab Continue Melatonin 5 mg PO HS Cholecalciferol [Vit. D-3] 1,000 unit PO DAILY Clopidogrel [Plavix] 75 mg PO DAILY #30 tab Furosemide [Lasix 20 mg Tab] 10 mg PO BID Isosorbide Mononitrate ER [Imdur] 30 mg PO QAM PEG 3350 17gm PACKET [Miralax] 17 gm PO DAILY packet Mirtazapine 30 mg PO HS Dextran 70/Hypromellose [Artificial Tears Eye Drops] 1 drop EACH EYE DAILY Aspirin [Adult Aspirin] 81 mg PO Q2D Chlorhexidine Gluconate 10 ml MM PRN PRN PRN Reason: Prn Orders Multivitamin [One Daily Multivitamin] 1 tab PO DAILY Docusate Sodium [Colace] 100 mg PO DAILY Biotin 5 mg PO Q2D Metoprolol Succinate (XL) [Toprol Xl] 25 mg PO DAILY #30 tab Omeprazole [Prilosec] 20 mg PO ACB Discontinued Carbidopa/Levodopa [Carbidopa-Levodopa 25-250 Tab] 1 tab PO TID Sertraline [Zoloft] 25 mg PO HS Discharge Instructions/Outpatient Orders: BMP - Basic Metabolic - [facility] Time Frame: 2 Days, Location: None Selected - Disposition 04 To [facility] Home/Facility - Dismissal Complete Discharge Instructions are:: Complete
--- NOTE | 2017-10-31 10:46 | Extended Care Facility Orders ---
Admission Orders Admit to:: [facility] Allergies/Adverse Reactions: Allergies lisinopril Allergy (Verified 10/25/17 11:14) NSAIDS (Non-Steroidal Anti-Inflamma Allergy (Verified 10/25/17 11:14) clarithromycin Adverse Reaction (Mild, Verified 10/25/17 11:14) STOMACH PAIN Admitting Diagnosis: Psychosis Admitting Physician: Anabell Bagley MD Attending Physician: Anabell Bagley MD Anticiapted Length of Stay: greater than 30 days Rehab Potential: fair Rehab Prognosis: fair Diet: 10/25/17 Dinner Regular Diet [DIET] Diet Modifications: May use Facility Protocol or Standing Orders: Yes May have flu vaccine: Yes Evaluations/Treatment: Psychiatric, as needed Long Term Certification: I certify that SNF services are required to be given on an Inpatient basis because of the patients need for detention care on a continuing basis for the condition(s) for which he/she received inpatient hospital services prior to his/her transfer to the SNF. SNF inpatient care is necessary for the following reasons Indication for Long Term: Not Applicable - Additional Information In Event of Arrest: Do Not Start CPR Resident is Aware of Diagnosis: Yes Referrals: [facility] [Provider Group] (Umm Hill, [facility] will see patient on rounds at the facility for Mental Health Therapy. ) Ekaterina Rust MD [Primary Care Provider] - (Dr. Lyndsay Rust on 11/14/17 at 2:30 pm for Hosp. follow-up. [address] [place] [address])
--- NOTE | 2017-10-31 15:46 | Progress Note ---
- Date 10/31/17 Subjective: Rossy was resting in her room. She initially appeared anxious but then became more conversational. She states that she feels weak in general and doesn't feel like eating. The only things she's hungry for are lissette cherries and watermelon; but then told me her friend had to go to a birthday democrat in [place] and wasn't able to bring her any fruit. Later she told me she wanted pizza. She denied any chest pain, SOA, abdominal pain or nausea. Nursing staff without concerns. Objective Vital signs: Temperature 97.0 F 10/31/17 08:00 Pulse Rate 81 10/31/17 08:00 Respiratory Rate 14 10/31/17 08:00 Blood Pressure 174/72 H 10/31/17 08:00 Pulse Oximetry 100 10/31/17 08:00 Rhythm: Normal Sinus Rhythm Height/Weight/BMI: Height 1.55 m Weight 44.5 kg Body Mass Index 18.5 - Constitutional Present: no acute distress, well nourished, well developed - Routine HEENT Exam Head: Present: normocephalic Eye: Present: PERRL. Absent: conjunctival icterus, scleral injection ENT: Present: mucous membranes moist, oropharynx clear - Routine Respiratory Exam Present: CTA bilaterally - Routine Cardiovascular Exam Present: RRR, S1, S2, murmur (2/6) - Routine Abdominal Exam Present: soft, normoactive bowel sounds, non distended, non tender - Routine Extremities Exam Present: no edema Comments: Left ankle brace - Routine Skin Exam Present: intact, dry, warm - Routine Neurological Exam Present: alert, normal speech. 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 Hypertension chronic kidney disease-stage III GERD Constipation Plan Medically stable. BP modestly elevated at times; however hesitant to increase antiHTN d/t hx Parkinson's. Vit B12 lower limit of normal at 314; start PO Vit B12 1000 mcg daily Recheck BMP in am - diuretics in use. Psych notes reviewed. - Physician Narrative Narrative: Date: 10/31/17 Time: 1540 Hospital Course Summary Disclaimer: The visit summary below is not to be considered part of the above Progress Note. Hospital Course: Impression Acute Psychosis Depressive disorder Parkinson's disease Congestive heart failure Aortic valve stenosis. Hypertension chronic kidney disease-stage III GERD Constipation Plan Agree with admission to [facility] under the care of Dr. Bagley. View medical screening including labs and radiology studies. Overall, patient appears to be medically stable. Continue Sinemet for Parkinson's Her blood pressure and pulse, continue on Toprol-XL 25 daily Patient is chronically on aspirin and Plavix. Miralax daily for bowel motivation Encourage patient to participate in unit activities and provide a safe environment. Appreciate medical consultation. Hospitalist service will continue to follow maynor during her stay Will discuss further orders and plan of care with attending, Dr. Fonseca At time of discharge medical care will return to primary care provider, Barrera 10/26/17 Psych: Will decrease Sinemet from 1 tab 25/100mg TID to 0.5 tab TID. 10/27/17 Psych: Increase mirtazapine to 45mg PO q HS. 10/28/17 Psych: Continue current care (recently increased mirtazapine); monitor response. 10/29/17 Psych: Continue current care as patient is improving. 10/30/17 Psych: Continue current care. 10/31/17 Psych: Will decrease mirtazapine back to 30mg PO q HS in case it could be contributing to nausea; monitor response. Continuing to discuss discharge plans with patient. 10/31/17 Medically stable. BP modestly elevated at times; however hesitant to increase antiHTN d/t hx Parkinson's. Vit B12 lower limit of normal at 314; start PO Vit B12 1000 mcg daily Recheck BMP in am - diuretics in use.
[2017-10-31 20:29] VITALS: RESP 16
[2017-10-31] MEDS: MELATONIN 5 MG TABLET PO SCH (20:30)
[2017-10-31] MEDS ORDERED: MIRTAZAPINE 30 MG TABLET PO SCH (21:00)
[2017-11-01] MEDS: ISOSORBIDE MONONITRATE ER 30 MG TABLET PO SCH (09:00)
[2017-11-01] MEDS ORDERED: CYANOCOBALAMIN (B-12) 500mcg TABLET PO SCH (09:00)
[2017-11-01] MEDS: OMEPRAZOLE 20 MG CAPSULE PO SCH (09:01)
[2017-11-01] MEDS: ARTIFICIAL TEARS 15ml EACH EYE SCH (09:01)
[2017-11-01] MEDS: ASPIRIN *EC* 81 MG TABLET PO SCH (09:02)
[2017-11-01] MEDS: DOCUSATE SODIUM 100 MG CAPSULE PO SCH (09:02)
[2017-11-01] MEDS: CLOPIDOGREL 75 MG TABLET PO SCH (09:02)
[2017-11-01] MEDS: FUROSEMIDE 20 MG TABLET PO SCH (09:03)
[2017-11-01] MEDS: MULTI-VITAMIN PLAIN TABLET PO SCH (09:03)
[2017-11-01] MEDS: POLYETHYL GLYCOL 3350 17gm PACKET PO SCH ×2 (09:05→11:22)
[2017-11-01 09:15] VITALS: BP 125/69; PULSE 92; TEMP 97; O2SAT 99
--- NOTE | 2017-11-01 15:20 | Neuropsych Progress Note ---
[facility] Subjective Date: 11/01/17 - Sujective/Severity of Illness Subjective: Patient seen and chart reviewed. Case discussed with treatment team. Patient is awake and reports that she is feeling okay physically. She has had some mild nausea at times but not as bad as previous. She reports that her mood is okay and doesn't have any paranoid thoughts towards facility/staff. She denies SI, HI, AVH. She is thankful for the care she has gotten here. Nursing staff report patient has been pleasant/cooperative without significant behavioral difficulties. Patient has been adherent with medications. Patient slept 5.25 hours overnight. VSS. Patient is eating well. Psychotropic PRNs required in the past 24 hours: none. Start Time: 13:20 Stop Time: 13:40 Mental Status Exam Vitals: Last Vital Signs Temp 97.0 F 11/01/17 08:00 Pulse 92 11/01/17 08:00 Resp 16 11/01/17 08:00 BP 125/69 11/01/17 08:00 Pulse Ox 99 11/01/17 08:00 Height: 1.55 m Weight: 44.5 kg - Mental Status Exam Muscle Strength/Tone: Weak Dressing: Casual Grooming: Fair Attitude: Cooperative Motor Activity: Retardation Eye Contact: Good Speech: Slowed Volume: Soft Rhythm: Appropriate Rhythm Sensory: Alert Orientation: Oriented to person, Oriented to place, Oriented to time Mood: Neutral Affect: Relaxed Rate of Thoughts: Delayed Thought Organization: Circumstantial Associations: Intact Abstract Reasoning: Poor abstract reasoning Thought Content: Somatic Concerns Perception/Psychotic: Perception Normal Language: Other (some naming impairment) Fund of Knowledge: Other (believed to be decreased from baseline; will administer SLUMS) Memory: Poor-recent Suicidal Ideation: Denies Homicidal Ideation: Denies Insight: Limited Judgement: Limited Impulse Control: Fair - Laboratory Result Diagrams: 10/25/17 11:11 11/01/17 09:36 Laboratory Results - last 24 hr 11/01/17 09:36 Turbidity < 20 Sodium 147 H Potassium 5.4 H Chloride 110 H Carbon Dioxide 23 Anion Gap 14 BUN 43.0 H Creatinine 1.2 GFR Calculation 43 BUN/Creatinine Ratio 36 H Glucose 106 Calculated Osmolality 293 H Calcium 9.6 Icterus Index < 2 Specimen Hemolysis 132 H Assessment and Plan (1) Psychosis Qualifiers: Schizoaffective disorder type: unspecified Status: Acute Substance-induced psychosis (Sinemet) (2) Parkinson's disease Status: Chronic Discharge back to facility. I contacted patient's therapist to let her know about Sinemet and possible contribution to psychosis; that if patient has further functional impairment may need further dose adjustment. Patient feels she is safe and would like to return back to facility. Hospital Course Summary Disclaimer: The visit summary below is not to be considered part of the above Progress Note. Hospital Course: Impression Acute Psychosis Depressive disorder Parkinson's disease Congestive heart failure Aortic valve stenosis. Hypertension chronic kidney disease-stage III GERD Constipation Plan Agree with admission to [facility] under the care of Dr. Bagley. View medical screening including labs and radiology studies. Overall, patient appears to be medically stable. Continue Sinemet for Parkinson's Her blood pressure and pulse, continue on Toprol-XL 25 daily Patient is chronically on aspirin and Plavix. Miralax daily for bowel motivation Encourage patient to participate in unit activities and provide a safe environment. Appreciate medical consultation. Hospitalist service will continue to follow patinet during her stay Will discuss further orders and plan of care with attending, Dr. Fonseca At time of discharge medical care will return to primary care provider, Barrera 10/26/17 Psych: Will decrease Sinemet from 1 tab 25/100mg TID to 0.5 tab TID. 10/27/17 Psych: Increase mirtazapine to 45mg PO q HS. 10/28/17 Psych: Continue current care (recently increased mirtazapine); monitor response. 10/29/17 Psych: Continue current care as patient is improving. 10/30/17 Psych: Continue current care. 10/31/17 Psych: Will decrease mirtazapine back to 30mg PO q HS in case it could be contributing to nausea; monitor response. Continuing to discuss discharge plans with patient. 10/31/17 Medically stable. BP modestly elevated at times; however hesitant to increase antiHTN d/t hx Parkinson's. Vit B12 lower limit of normal at 314; start PO Vit B12 1000 mcg daily Recheck BMP in am - diuretics in use. 11/01/17 Psych: Discharge back to facility. I contacted patient's therapist to let her know about Sinemet and possible contribution to psychosis; that if patient has further functional impairment may need further dose adjustment. Patient feels she is safe and would like to return back to facility.
== END 2017-11-01 13:50 | DRG 57 ==
LOC: ED 11:01 → EDHOLD 15:28 → GEN 15:35
PROVIDERS: ADMIT Psychiatry & Neurology Psychiatry; ATTEND Psychiatry & Neurology Psychiatry